=== PATIENT | male | born 1945 | race Caucasian/White ===

== ENCOUNTER 2016-12-02 13:42 | Observation (INO) | payer BC, MEDICARE ==
--- NOTE | 2016-12-02 14:17 | ED ---
General Adult HPI - General Chief complaint: Arrhythmia/Palpitations Stated complaint: dizzy/altered Time Seen by Provider: 12/02/16 14:00 Source: patient, family, RN notes reviewed Mode of arrival: wheelchair Limitations: no limitations - History of Present Illness Initial comments: This is a 71-year-old male who presents emergency department with past medical history significant for COPD. Comes in today feeling extremely fatigued. Patient states yesterday he was out shopping with his and getting dunaway in the garden he felt fine and after watering her dunaway outside when he got home he felt dizzy came inside was extremely fatigued according to his . Patient needed to hang onto the counter while he was walking around the house. Patient did eat dinner but was extremely dizzy and tired patient went to bed early slept all night when he got up this morning he was no longer dizzy but extremely tired according to the he just sits down and he falls right to sleep. Patient currently states he has no dizziness he denies any headache denies numbness or weakness patient denies any lightheadedness or dizziness currently. Patient denies any palpitations chest pain or difficulty breathing. Patient denies any abdominal pain patient denies any recent fever chills or cough patient denies any nausea vomiting or diarrhea. Patient denies any recent injury or trauma. - Related Data Home Medications Medication Instructions Recorded Confirmed Insulin Lispro [humaLOG] See Protocol SQ DAILY PRN 11/03/14 12/02/16 Losartan [Cozaar] 50 mg PO BID 11/03/14 12/02/16 Multivitamins, Thera [Multivitamin 1 tab PO DAILY 11/03/14 12/02/16 (formulary)] Simvastatin [Zocor] 40 mg PO HS 11/03/14 12/02/16 Insulin Glargine [Lantus] 30 unit SQ BID 04/07/16 12/02/16 Acetaminophen [Tylenol] 325 mg PO Q4H PRN 12/02/16 12/02/16 Aspirin [Adult Low Dose Aspirin EC] 81 mg PO Q48H 12/02/16 12/02/16 Eucrisa 2% Ointment 1 applic TOPICAL DAILY PRN 12/02/16 12/02/16 Ibuprofen [Motrin] 600 mg PO DAILY PRN 12/02/16 12/02/16 Tamsulosin HCl [Flomax] 0.4 mg PO HS 12/02/16 12/02/16 metFORMIN HCL [Metformin HCl] 1,000 mg PO BID 12/02/16 12/02/16 Allergies Allergy/AdvReac Type Severity Reaction Status Date / Time cephalexin monohydrate Allergy Dyspnea, Verified 12/02/16 15:24 [From Keflex] RASH Review of Systems ROS Statement: Those systems with pertinent positive or pertinent negative responses have been documented in the HPI. ROS Other: All systems not noted in ROS Statement are negative. Past Medical History Past Medical History: Diabetes Mellitus, Hearing Disorder / Deafness, Osteoarthritis (OA) Additional Past Medical History / Comment(s): SEE DR DE LOS SANTOS HISTORY AND PHYSICAL History of Any Multi-Drug Resistant Organisms: None Reported Past Surgical History: Back Surgery, Heart Catheterization, Pacemaker Additional Past Surgical History / Comment(s): CERVICAL FUSION, Past Anesthesia/Blood Transfusion Reactions: No Reported Reaction Type of Cardiac Device: Unknown Device Placement Date:: october 2014 Past Psychological History: No Psychological Hx Reported Smoking Status: Never smoker Past Alcohol Use History: Occasional Additional Past Alcohol Use History / Comment(s): STARTED SMOKING IN 1961 AND QUIT IN 2013 Past Drug Use History: None Reported - Past Family History Brother(s) Family Medical History: Cancer General Exam - General Exam Comments Initial Comments: GENERAL: Patient is well-developed and well-nourished. Patient is nontoxic and well- hydrated and is in no acute distress. Patient seems extremely tired but easily to arouse ENT: Neck is soft and supple. No significant lymphadenopathy is noted. Oropharynx is clear. Moist mucous membranes. Neck has full range of motion without eliciting any pain. EYES: The sclera were anicteric and conjunctiva were pink and moist. Extraocular movements were intact and pupils were equal round and reactive to light. Eyelids were unremarkable. PULMONARY: Unlabored respirations. Good breath sounds bilaterally. No audible rales rhonchi or wheezing was noted. CARDIOVASCULAR: There is a regular rate and rhythm without any murmurs gallops or rubs. ABDOMEN: Soft and nontender with normal bowel sounds. No palpable organomegaly was noted. There is no palpable pulsatile mass. SKIN: Skin is clear with no lesions or rashes and otherwise unremarkable. NEUROLOGIC: Patient is alert and oriented x3. Cranial nerves II through XII are grossly intact. Motor and sensory are also intact. Normal speech, volume and content. Symmetrical smile. Cerebellar exam grossly intact. Finger to nose cerebellar testing is normal MUSCULOSKELETAL: Normal extremities with adequate strength and full range of motion. No lower extremity swelling or edema. No calf tenderness. LYMPHATICS: No significant lymphadenopathy is noted PSYCHIATRIC: Normal psychiatric evaluation. Normal interpersonal interactions appears functionally intact in deals appropriately with others. No signs of depression. No signs of anxiety. Limitations: no limitations Course Vital Signs 12/02/16 12/02/16 12/02/16 13:51 14:15 14:16 Temperature 98.1 F Pulse Rate 60 58 L Pulse Rate [ 61 Water Treatment Specialist ] Respiratory 20 16 Rate Blood Pressure 142/66 156/73 O2 Sat by Pulse 96 95 Oximetry 12/02/16 14:59 Temperature 97.8 F Pulse Rate 61 Pulse Rate [ Water Treatment Specialist ] Respiratory 18 Rate Blood Pressure 157/72 O2 Sat by Pulse 98 Oximetry Medical Decision Making - Medical Decision Making EKG shows atrial paced rhythm at 63 bpm DE interval 300 QRS is 152 QT interval 422 QTC is 431 patient is a right bundle branch block patient has no ST segment elevation or depression. Chest x-ray shows no acute abnormality. CT of the brain shows no acute abnormality. Patient still was significantly fatigued so I admitted the patient I did talk to . he has a he agreed with admission I wrote admitting orders - Lab Data Result diagrams: 12/02/16 14:00 12/02/16 14:00 Lab Results 12/02/16 12/02/16 12/02/16 Range/Units 14:00 14:00 14:00 WBC 5.7 (3.8-10.6) k/uL RBC 4.60 (4.30-5.90) m/uL Hgb 13.8 (13.0-17.5) gm/dL Hct 42.9 (39.0-53.0) % MCV 93.3 (80.0-100.0) fL MCH 30.1 (25.0-35.0) pg MCHC 32.3 (31.0-37.0) g/dL RDW 13.4 (11.5-15.5) % Plt Count 198 (150-450) k/uL Neutrophils % 65 % Lymphocytes % 22 % Monocytes % 6 % Eosinophils % 3 % Basophils % 1 % Neutrophils # 3.7 (1.3-7.7) k/uL Lymphocytes # 1.3 (1.0-4.8) k/uL Monocytes # 0.3 (0-1.0) k/uL Eosinophils # 0.2 (0-0.7) k/uL Basophils # 0.1 (0-0.2) k/uL PT (9.0-12.0) sec INR (<1.1) APTT (22.0-30.0) sec Sodium 143 (137-145) mmol/L Potassium 4.5 (3.5-5.1) mmol/L Chloride 103 (98-107) mmol/L Carbon Dioxide 31 H (22-30) mmol/L Anion Gap 9 mmol/L BUN 23 H (9-20) mg/dL Creatinine 0.76 (0.66-1.25) mg/dL Est GFR (MDRD) Af Amer >60 (>60 ml/min/1.73 sqM) Est GFR (MDRD) Non-Af >60 (>60 ml/min/1.73 sqM) Glucose 117 H (74-99) mg/dL Calcium 10.0 (8.4-10.2) mg/dL Magnesium 1.9 (1.6-2.3) mg/dL Total Bilirubin 0.5 (0.2-1.3) mg/dL AST 37 (17-59) U/L ALT 42 (21-72) U/L Alkaline Phosphatase 70 (38-126) U/L Total Creatine Kinase 189 H (55-170) U/L CK-MB (CK-2) 5.9 H* (0.0-2.4) ng/mL CK-MB (CK-2) Rel Index 3.1 Troponin I <0.012 (0.000-0.034) ng/mL Total Protein 7.2 (6.3-8.2) g/dL Albumin 4.3 (3.5-5.0) g/dL TSH 1.940 (0.465-4.680) mIU/L Free T4 1.04 (0.78-2.19) ng/dL Urine Color Urine Appearance (Clear) Urine pH (5.0-8.0) Ur Specific Marion (1.001-1.035) Urine Protein (Negative) Urine Glucose (UA) (Negative) Urine Ketones (Negative) Urine Blood (Negative) Urine Nitrite (Negative) Urine Bilirubin (Negative) Urine Urobilinogen (<2.0) mg/dL Ur Leukocyte Esterase (Negative) Urine RBC (0-5) /hpf Urine WBC (0-5) /hpf Urine WBC Clumps (None) /hpf Urine Bacteria (None) /hpf Urine Mucus (None) /hpf 12/02/16 12/02/16 Range/Units 14:00 14:35 WBC (3.8-10.6) k/uL RBC (4.30-5.90) m/uL Hgb (13.0-17.5) gm/dL Hct (39.0-53.0) % MCV (80.0-100.0) fL MCH (25.0-35.0) pg MCHC (31.0-37.0) g/dL RDW (11.5-15.5) % Plt Count (150-450) k/uL Neutrophils % % Lymphocytes % % Monocytes % % Eosinophils % % Basophils % % Neutrophils # (1.3-7.7) k/uL Lymphocytes # (1.0-4.8) k/uL Monocytes # (0-1.0) k/uL Eosinophils # (0-0.7) k/uL Basophils # (0-0.2) k/uL PT 10.9 (9.0-12.0) sec INR 1.1 (<1.1) APTT 24.5 (22.0-30.0) sec Sodium (137-145) mmol/L Potassium (3.5-5.1) mmol/L Chloride (98-107) mmol/L Carbon Dioxide (22-30) mmol/L Anion Gap mmol/L BUN (9-20) mg/dL Creatinine (0.66-1.25) mg/dL Est GFR (MDRD) Af Amer (>60 ml/min/1.73 sqM) Est GFR (MDRD) Non-Af (>60 ml/min/1.73 sqM) Glucose (74-99) mg/dL Calcium (8.4-10.2) mg/dL Magnesium (1.6-2.3) mg/dL Total Bilirubin (0.2-1.3) mg/dL AST (17-59) U/L ALT (21-72) U/L Alkaline Phosphatase (38-126) U/L Total Creatine Kinase (55-170) U/L CK-MB (CK-2) (0.0-2.4) ng/mL CK-MB (CK-2) Rel Index Troponin I (0.000-0.034) ng/mL Total Protein (6.3-8.2) g/dL Albumin (3.5-5.0) g/dL TSH (0.465-4.680) mIU/L Free T4 (0.78-2.19) ng/dL Urine Color Light Yellow Urine Appearance Clear (Clear) Urine pH 6.5 (5.0-8.0) Ur Specific Marion 1.011 (1.001-1.035) Urine Protein Trace H (Negative) Urine Glucose (UA) Negative (Negative) Urine Ketones Negative (Negative) Urine Blood Negative (Negative) Urine Nitrite Negative (Negative) Urine Bilirubin Negative (Negative) Urine Urobilinogen <2.0 (<2.0) mg/dL Ur Leukocyte Esterase Moderate H (Negative) Urine RBC 1 (0-5) /hpf Urine WBC 26 H (0-5) /hpf Urine WBC Clumps Rare H (None) /hpf Urine Bacteria Rare H (None) /hpf Urine Mucus Rare H (None) /hpf Disposition Clinical Impression: Generalized weakness, Urinary tract infection Disposition: ADMITTED IP TO THIS HOSP Referrals: Taqueria Doherty MD [Primary Care Provider] - 1-2 days Time of Disposition: 16:16
[2016-12-02 14:30] LABS: Basophils # (A) 0.1 k/uL (0-0.2); Basophils % (A) 1 %; CHCM 32.2; Eosinophils # (A) 0.2 k/uL (0-0.7); Eosinophils % (A) 3 %; HCT 42.9 % (39.0-53.0); HDW 2.36; HGB 13.8 gm/dL (13.0-17.5); Luc # (Auto) 0.18; Luc % (Auto) 3; Lymphocytes # (A) 1.3 k/uL (1.0-4.8); Lymphocytes % (A) 22 %; MCH 30.1 pg (25.0-35.0); MCHC 32.3 g/dL (31.0-37.0); MCV 93.3 fL (80.0-100.0); Mean Platelet Volume 6.7; Monocytes # (A) 0.3 k/uL (0-1.0); Monocytes % (A) 6 %; Neutrophils # (A) 3.7 k/uL (1.3-7.7); Neutrophils % (A) 65 %; RDW 13.4 % (11.5-15.5); WBC 5.7 k/uL (3.8-10.6); WBC (Perox) 5.66
[2016-12-02 14:38] LABS: INR 1.1 (<1.1); Partial Thromboplastin Time 24.5 sec (22.0-30.0); Prothrombin Time 10.9 sec (9.0-12.0)
[2016-12-02 14:39] LABS: ALT 42 U/L (21-72); AST 37 U/L (17-59); Alkaline Phosphatase 70 U/L (38-126); Anion Gap 9 mmol/L; Blood Urea Nitrogen 23 mg/dL (9-20); Carbon Dioxide 31 mmol/L (22-30); Chloride 103 mmol/L (98-107); Glucose 117 mg/dL (74-99); Magnesium 1.9 mg/dL (1.6-2.3); Non-African American GFR(MDRD) >60 (>60 ml/min/1.73 sqM); Potassium 4.5 mmol/L (3.5-5.1); Sodium 143 mmol/L (137-145); Total Bilirubin 0.5 mg/dL (0.2-1.3); Total Protein 7.2 g/dL (6.3-8.2)
[2016-12-02 14:51] LABS: Creatine Kinase 189 U/L (55-170)
--- NOTE | 2016-12-02 14:54 | CT ---
EXAMINATION TYPE: CT brain wo con DATE OF EXAM: 12/02/2016 2:34 PM COMPARISON: NONE HISTORY: Patient poor historian. Pain. CT DLP: 1047.1 mGycm Automated exposure control for dose reduction was used. FINDINGS: Ventricles have normal size. There is no mass effect nor midline shift. There is no sign of intracran ial hemorrhage. There is cerebral cortical atrophy. The calvarium is intact. There is some mucosal th ickening in the anterior ethmoid air cells. IMPRESSION: Negative unenhanced head CT scan. Mild atrophy. Mild ethmoid sinusitis.
--- NOTE | 2016-12-02 14:56 | XR ---
EXAMINATION TYPE: XR chest 2V DATE OF EXAM: 12/02/2016 2:37 PM COMPARISON: 04/07/2016 HISTORY: Chest pain TECHNIQUE: Frontal and lateral views of the chest are obtained. FINDINGS: Heart and mediastinum appear normal. There are no hilar masses. There is mild linear densi ty at the left lung base. There is a left axillary pacemaker with the lead tips in the right ventricl e. There are chest leads. Right lung is clear. IMPRESSION: There is new minimal atelectasis at the left lung base compared to last exam. Normal hea rt. No heart failure.
[2016-12-02 15:03] LABS: Troponin I <0.012 ng/mL (0.000-0.034)
[2016-12-02 15:05] LABS: Creatine Kinase MB 5.9 ng/mL (0.0-2.4)
[2016-12-02 15:12] LABS: Appearance,Urine Clear (Clear); Bacteria,Urine Rare /hpf; Bilirubin,Urine Negative (Negative); Glucose,Urine (UA) Negative (Negative); Ketones,Urine Negative (Negative); Leukocyte Esterase,Urine Moderate (Negative); Mucus,Urine Rare /hpf; Nitrite,Urine Negative (Negative); PH, Urine 6.5 (5.0-8.0); Particle Count 6019; Protein,Urine Trace (Negative); RBC,Urine 1 /hpf (0-5); Specific Gravity,Urine 1.011 (1.001-1.035); UA Billing (MACRO vs. MICRO) MICRO; Urobilinogen,Urine <2.0 mg/dL (<2.0); WBC,Urine 26 /hpf (0-5)
[2016-12-02] MEDS ORDERED: LEVOFLOXACIN 750MG-D5W PMX 750 MG in DEXTROSE/WATER 1 150ML.BAG IVPB STA (15:35)
[2016-12-02] MEDS ORDERED: SODIUM CHLORIDE 0.9% 1,000 ML IV ONE (16:16)
[2016-12-02 17:16] VITALS: BMI 29.0
[2016-12-02 17:26] LABS: Glucose,Whole Blood 114 mg/dL (75-99)
[2016-12-02] MEDS ORDERED: ACETAMINOPHEN 650 MG PO PRN (17:35)
[2016-12-02] MEDS ORDERED: EUCRISA 2% TOPICAL PRN (17:35)
[2016-12-02] MEDS ORDERED: IBUPROFEN 600 MG PO PRN (17:35)
[2016-12-02] MEDS: SODIUM CHLORIDE 0.9% 1,000 ML IV SCH (19:46)
[2016-12-02] MEDS ORDERED: INSULIN LISPRO SQ PRN (20:24)
[2016-12-02] MEDS: METFORMIN HCL 1000 MG PO SCH (20:45)
[2016-12-02] MEDS: LOSARTAN 50 MG PO SCH (20:45)
[2016-12-02 20:52] LABS: Glucose,Whole Blood 152 mg/dL (75-99)
[2016-12-02] MEDS ORDERED: SIMVASTATIN 80 MG PO SCH (21:00)
[2016-12-02] MEDS ORDERED: INSULIN GLARGINE 30 UNIT SQ SCH (21:00)
[2016-12-02] MEDS ORDERED: INSULIN GLARGINE 100 UNIT/ML 10 ML VIAL SQ SCH (21:00)
[2016-12-02] MEDS ORDERED: TAMSULOSIN HCL 0.4 MG PO SCH (21:00)
[2016-12-02] MEDS: NOVOLOG INSULIN SQ SCH (23:29)
[2016-12-02] MEDS: INSULIN GLARGINE 100 UNIT/ML SQ SCH (23:37)
[2016-12-03] MEDS: SODIUM CHLORIDE 0.9% 1,000 ML IV SCH ×2 (04:01→13:32)
[2016-12-03 06:34] LABS: Glucose,Whole Blood 114 mg/dL (75-99)
[2016-12-03 07:10] VITALS: BP 119/60; PULSE 83; RESP 16; TEMP 97.8
[2016-12-03] MEDS: NOVOLOG INSULIN SQ SCH ×2 (07:53→12:39)
[2016-12-03] MEDS: LOSARTAN 50 MG PO SCH (08:30)
[2016-12-03] MEDS: METFORMIN HCL 1000 MG PO SCH (08:31)
[2016-12-03] MEDS: INSULIN GLARGINE 100 UNIT/ML SQ SCH (08:34)
[2016-12-03] MEDS ORDERED: ASPIRIN 81 MG PO SCH (09:00)
[2016-12-03] MEDS ORDERED: MULTIVITAMINS THERA PO SCH (09:00)
[2016-12-03 11:57] LABS: Glucose,Whole Blood 211 mg/dL (75-99)
--- NOTE | 2016-12-03 21:15 | HP ---
DATE OF ADMISSION: 12/02/2016 This dictation is both H&P and discharge summary. HISTORY AND PHYSICAL EXAMINATION/DISCHARGE SUMMARY: Patient is a 71-year-old came to the Emergency Room Department with complaints of lightheadedness, fatigue and patient has been in garden and sun. The patient although kidney function is clinically appeared to be dehydrated with elevated BUN. Patient has positive orthostatic vitals along with mildly low normal blood pressure which the patient is on losartan 50 twice a day and his losartan was increased from 50 daily to 50 twice a day, may have contributed to his dizziness as well. Losartan will be changed back to 50 mg. This is being used for ( ) because of his diabetes mellitus. Patient is admitted for UTI and was given antibiotics yesterday and today. Although patient denied any dysuria. The patient denied any increased urinary frequency. Urine is a bit abnormal, but I do not believe patient has UTI. Patient's WBC is 26. Rare RBCs. Rare bacteria. Rare mucus. His lightheadedness. Patient does not have any fevers, does not have any leukocytosis. His symptoms are only lightheadedness, did not have any syncopal episode. Patient denied any nausea or vomiting, diarrhea. Patient denied any cough, runny nose. REVIEW OF SYSTEMS: CONSTITUTIONAL: As described in history of present illness. HEENT: No recent visual problems or hearing problems. Denied any sore throat. CARDIOVASCULAR: No chest pain, orthopnea, PND, no palpitations, no syncope. PULMONARY: No shortness of breath, no cough, no hemoptysis. GASTROINTESTINAL: No diarrhea, no nausea, no vomiting, no abdominal pain. Normoactive bowel sounds. NEUROLOGICAL: No headaches, no weakness, no numbness. HEMATOLOGICAL: Denies any bleeding or petechiae. GENITOURINARY: Denies any burning micturition, frequency, or urgency. MUSCULOSKELETAL/RHEUMATOLOGICAL: Denies any joint pain, swelling, or any muscle pain. ENDOCRINE: Denies any polyuria or polydipsia. The rest of the 14 point review of systems is negative. Medications: 1. Lisinopril. 2. Cozaar. 3. Multivitamins. 4. Simvastatin. 5. Lantus 30 units b.i.d. 6. Acetaminophen. 7. Aspirin. 8. Ibuprofen. 9. Tamsulosin. 10. Metformin. ALLERGIES: CEPHALEXIN. PAST MEDICAL HISTORY: Significant for diabetes mellitus, hypertension, osteoarthritis, hearing problems. Patient had cardiac catheterization with pacemaker placement in the past, cervical fusion surgery. SOCIAL HISTORY: Denied any smoking, alcohol abuse or any drug abuse. FAMILY HISTORY: Brother had cancer. PHYSICAL EXAMINATION: Temperature 97.8, pulse of 83, respiratory rate of 16, blood pressure 108/66, saturating at 93% on room air. GENERAL: The patient is alert and oriented x3, not in any acute distress. Well developed, well nourished. HEENT: Pupils are round and equally reacting to light. EOMI. No scleral icterus. No conjunctival pallor. Normocephalic, atraumatic. No pharyngeal erythema. No thyromegaly. CARDIOVASCULAR: S1 and S2 present. No murmurs, rubs, or gallops. PULMONARY: Chest is clear to auscultation, no wheezing or crackles. ABDOMEN: Soft, nontender, nondistended, normoactive bowel sounds. No palpable organomegaly. MUSCULOSKELETAL: No joint swelling or deformity. EXTREMITIES: No cyanosis, clubbing, or pedal edema. NEUROLOGICAL: Gross neurological examination did not reveal any focal deficits. SKIN: No rashes. LABORATORY DATA: BUN is 23. Bicarbonate 31 consistent with contraction alkalosis. Blood glucose is 118, hemoglobin is 8.0, consistent with uncontrolled diabetes mellitus. ASSESSMENT AND PLAN: 1. Dizziness probably related and mild renal dysfunction that is acute renal failure due to prerenal azotemia. I believe patient is a bit dehydrated. Received IV fluids. Feeling well at this point of time. There is a contribution of losartan may have contributed to his low blood pressures and dizziness, because of which I will cut down dose of losartan. 2. Diabetes mellitus. 3. Asymptomatic bacteriuria, does not warrant any antibiotics. Antibiotics will be discontinued. 4. Regarding diabetes mellitus, patient has uncontrolled blood sugars. Further management as an outpatient. 5. Hyperlipidemia. 6. Osteoarthritis. For above-mentioned chronic medical problems, patient can continue his home medications. Patient also has benign prostatic hypertrophy and hyperlipidemia for which he can continue his home medications. Patient will follow up with his primary care physician, Dr. Taqueria Biswas in 3 to 7 days. Activity as tolerated. Cardiac and ADA 1800 calorie diet. This dictation is both H&P and discharge summary.
== END 2016-12-03 13:20 | disposition home or self-care (01) ==
LOC: EC 13:42 → 3OBS 16:17
PROVIDERS: ADMIT Internal Medicine; ATTEND Internal Medicine
DX: R42 Dizziness and giddiness (principal); E11.65 Type 2 diabetes mellitus with hyperglycemia; R82.71 Bacteriuria; E78.5 Hyperlipidemia, unspecified; M19.90 Unspecified osteoarthritis, unspecified site; N40.0 Benign prostatic hyperplasia without lower urinary tract symptoms; J44.9 Chronic obstructive pulmonary disease, unspecified; H91.90 Unspecified hearing loss, unspecified ear; Z79.899 Other long term (current) drug therapy; Z79.4 Long term (current) use of insulin; Z79.82 Long term (current) use of aspirin; Z79.84 Long term (current) use of oral hypoglycemic drugs; Z88.1 Allergy status to other antibiotic agents; Z95.0 Presence of cardiac pacemaker; Z87.891 Personal history of nicotine dependence; Z98.1 Arthrodesis status; I10 Essential (primary) hypertension; Z80.9 Family history of malignant neoplasm, unspecified; R53.83 Other fatigue; R79.89 Other specified abnormal findings of blood chemistry
CPT/HCPCS: 99285; 96365 ×3; 36415; 93005; 84439; 80053; 83036; 82550; 82553; 83735; 84443; 84484; 85025; 85610; 85730; 81001; 87086; 87077; 87186; 71020; 70450; G0378 ×2; J1956

== ENCOUNTER → 2017-08-17 | Outpatient (CLI) | payer MEDICARE ==
[2017-08-17 08:42] LABS: Basophils # (A) 0.1 k/uL (0-0.2); Basophils % (A) 1 %; Eosinophils # (A) 0.1 k/uL (0-0.7); Eosinophils % (A) 3 %; HCT 42.7 % (39.0-53.0); HGB 13.3 gm/dL (13.0-17.5); Hypochromasia Slight; Lymphocytes # (A) 1.3 k/uL (1.0-4.8); Lymphocytes % (A) 22 %; MCH 29.8 pg (25.0-35.0); MCHC 31.1 g/dL (31.0-37.0); MCV 95.7 fL (80.0-100.0); Mean Platelet Volume 6.7; Monocytes # (A) 0.5 k/uL (0-1.0); Monocytes % (A) 8 %; Neutrophils # (A) 3.5 k/uL (1.3-7.7); Neutrophils % (A) 62 %; Platelet Count 226 k/uL (150-450); RBC 4.46 m/uL (4.30-5.90); RDW 13.4 % (11.5-15.5); WBC 5.7 k/uL (3.8-10.6)
[2017-08-17 08:57] LABS: Potassium 5.9 mmol/L (3.5-5.1)
== END | disposition home or self-care (01) ==
LOC: LABPAT 08:18
PROVIDERS: ATTEND Orthopaedic Surgery
DX: Z01.818 Encounter for other preprocedural examination (principal); M75.41 Impingement syndrome of right shoulder
CPT/HCPCS: 36415; 80051; 85025

== ENCOUNTER 2017-09-04 07:54 | Day surgery (SDC) | payer MEDICARE ==
[2017-09-02 09:01] VITALS: BMI 29.1
--- NOTE | 2017-09-03 12:36 | HP ---
HISTORY AND PHYSICAL DATE OF SERVICE: 09/04/2017 Luke Singh is a 72-year-old patient seen with progressive right shoulder pain. We discussed treatment options. He elected to proceed with right shoulder arthroscopy. Consent was obtained, clearance was provided by Dr. Dale. PAST MEDICAL HISTORY: Insulin-dependent diabetes, hyperlipidemia, hypertension. PAST SURGICAL HISTORY: Lumbar laminectomy. DAILY MEDICATIONS: 1. NovoLog insulin. 2. Simvastatin. 3. Tramadol. 4. Losartan. ALLERGIES: KEFLEX. SOCIAL HISTORY: Patient denies current tobacco use. PHYSICAL EVALUATION RIGHT SHOULDER: Flexion 90 degrees, abduction 70 degrees, external rotation is 30 degrees with pain and weakness. There is tenderness along the anterolateral acromion and rotator cuff insertion site. Impingement positive 60 degrees. Drop-arm sign positive. Distal neurovascular exam intact. RIGHT SHOULDER RADIOGRAPHS: Revealed a type 2 anterior acromion, acromioclavicular joint osteoarthritis and cystic changes of the greater tuberosity. IMPRESSION: Right shoulder impingement with probable rotator cuff tear and acromioclavicular joint osteoarthritis. PLAN: Right shoulder arthroscopy, subacromial decompression, probable arthroscopic rotator cuff repair, probable Jayna procedure and debridement. MMODL / IJN: [id number] /
[~2017-09-04 07:54] MED LIST: DEXAMETHASONE SOD PHOSPHATE 10 MG/ML 1 ML VIAL IV ONE; HYDROmorphone 0.5 MG/0.5 ML SYRINGE IVP PRN; LACTATED RINGERS 1,000 ML IV SCH; MIDAZOLAM 2 MG/2 ML VIAL IV PRN; ONDANSETRON 4 MG/2 ML VIAL IVP ONE; Pre Op ABX Message 1 EACH MISC MISCELLANE ONE
[2017-09-04 08:50] LABS: Glucose,Whole Blood 210 mg/dL (75-99)
[2017-09-04] MEDS ORDERED: LIDOCAINE 1% 20 ML VIAL (10MG/ML) FOR IV START INTRADERMA ONE (08:53)
[2017-09-04] MEDS ORDERED: INSULIN ASPART 100 UNIT/ML 1 ML 10 ML VIAL SQ ONE (09:17)
[2017-09-04] MEDS ORDERED: fentaNYL (PF) 50 MCG/ML 2 ML AMP IV ONE (09:30)
--- NOTE | 2017-09-04 09:42 | P.ONQ ---
Anesthesiology Proc Note - PNB - Peripheral Nerve Block Performed Right Interscalene Single Time Out Performed: Yes Procedure Start Time: 09:30 Indication: Acute Post-Operative Pain, Analgesia Specifically requested for management of pain by DrCristofer: Gunner Pedersen Sedation Type: Sedate with meaningful contact maintained Preparation: Sterile Prep Position: Supine Catheter: None Needle Types: Other (see comment) (pajunk) Needle Size: 50mm (2") Needle Gauge: 21 Technique: Ultrasound Injectate: 0.5% Ropivacaine (see comment for volume) (30cc) Blood Aspirated: No Pain Paresthesia on Injection Noted: No Resistance on Injection: Normal Events: Uneventful and Well Tolerated
[2017-09-04] MEDS ORDERED: PHENYLEPHRINE-0.9% NACL SYG 1 MG/10 ML SYRINGE ONE (10:15)
[2017-09-04] MEDS ORDERED: PROPOFOL 10 MG/ML 20 ML VIAL IV ONE (10:15)
[2017-09-04] MEDS ORDERED: LIDOCAINE 1% INJ 10MG/ML (20 ML MDV) ONE (10:15)
[2017-09-04] MEDS ORDERED: SUCCINYLCHOLINE CHLORIDE 100 MG/5 ML SYR IV ONE (10:15)
[2017-09-04] MEDS ORDERED: ROPIVACAINE 5 MG/ML 30 ML VIAL ONE (10:15)
[2017-09-04] MEDS ORDERED: LIDOCAINE 2%-EPI 1:100,000 20 ML VIAL ONE (10:15)
[2017-09-04] MEDS ORDERED: CLINDAMYCIN 150 MG/ML 4 ML VIAL IVPB ONE (10:37)
--- NOTE | 2017-09-04 11:54 | P.OP ---
Date of Procedure: 09/04/17 Preoperative Diagnosis: Right shoulder impingement Postoperative Diagnosis: 1. Right shoulder rotator cuff tear 2. Right shoulder impingement 3. Right shoulder acromioclavicular joint osteoarthritis 4. Right shoulder partial long head biceps tendon tear 5. Right shoulder superficial superior labral tear Procedure(s) Performed: 1. Right shoulder arthroscopic rotator cuff repair 2. Right shoulder arthroscopic subacromial decompression 3. Right shoulder arthroscopic Jayna procedure 4. Right shoulder arthroscopic biceps tenotomy 5. Right shoulder arthroscopic debridement labral tear Implants: 1-5.5 Valeris peek anchor Anesthesia: GETA, regional (Interscalene block) Surgeon: Gunner Pedersen Customer Advocacy Manager #1: Rafat Medrano Estimated Blood Loss (ml): 10 Pathology: none sent Condition: stable Disposition: PACU Indications for Procedure: 72-year-old patient seen with progressive right shoulder pain. After treatment options were discussed, he elected to proceed with arthroscopy. Operative Findings: See description of procedure Description of Procedure: Patient underwent a shoulder block by department of anesthesia. The patient was then taken to the operative suite. The patient underwent a general anesthetic by the department of anesthesia. The patient was placed into a lateral position and secured. There was appropriate padding of the bony prominence. Right shoulder was then prepped and draped in normal sterile orthopedic fashion. We placed the extremity in 10 pounds of longitudinal traction. A posterior incision was now made for a posterior working portal site. The trocar and cannula were inserted into the glenohumeral joint. Arthroscopy was initiated. Spinal needle was now inserted anteriorly, to ascertain the anterior working portal site. An incision was now made in that area, a trocar was inserted followed by a probe. There was some superficial tearing noted of the superior labrum. Partial tearing hyperemia biceps tendon. The anterior posterior and inferior labrum were intact. There were grade 1 chondromalacia changes of the glenohumeral joint with no osteochondral tears present. I debrided the superficial labral tear down to stable tissue. Arthroscopic biceps tenotomy was performed. The residual labrum appeared stable. Instruments were now removed from the glenohumeral joint. Utilizing the posterior working portal site, the trocar and cannula were inserted into the subacromial space. Arthroscopy initiated. I made an incision 2 fingerbreadths lateral to the acromion. I introduced my trocar followed by my [employer]throCare ablator. I now began ablating thick subacromial bursal tissue, which exposed the undersurface of the anterior acromion. This was diminished subacromial space. There was a very prominent anterior acromion. A motorized bur was introduced and a subacromial decompression was performed. I also excised some osteophytes off the inferior aspect of the distal clavicle. The AC joint was visualized and noted to be fairly arthritic. Our motorized bur was introduced in the anterior portal site and a Jayna procedure was performed without difficulty, decompressing the AC joint nicely. I turned my attention to the rotator cuff. There was superficial tearing noted along the distal supraspinatus tendon. Once I debrided that down to stable tissue a probe was introduced and the was a through and through perforation noted. I debrided those margins getting down to stable tissue. There was about a 1 cm defect. I abraded the foot with a motorized bur. I passed 2 everted mattress sutures through good bites of rotator cuff tendon. I repaired the tendon with one single 5.5 anchor. The residual suture limbs were clipped. The repair was stable. I injected 1 mL of UCT intra-articular. Instruments now removed from the portal sites. All portal sites were approximated with nylon suture. Sterile dressings were applied followed by a shoulder immobilizer. Westley CARRILLO assisted with the procedure. The patient was awakened, transferred to a bed, and taken to recovery in stable condition.
[2017-09-04 12:04] VITALS: TEMP 96.8
[2017-09-04 12:15] LABS: Glucose,Whole Blood 188 mg/dL (75-99)
[2017-09-04 12:56] VITALS: RESP 16
[2017-09-04 13:58] VITALS: BP 144/70; PULSE 78
[2017-09-04 14:01] LABS: Glucose,Whole Blood 190 mg/dL (75-99)
== END 2017-09-04 14:28 | disposition home or self-care (01) ==
LOC: OR 07:54
PROVIDERS: ATTEND Orthopaedic Surgery
DX: M75.101 Unspecified rotator cuff tear or rupture of right shoulder, not specified as traumatic (principal); M75.41 Impingement syndrome of right shoulder; M19.011 Primary osteoarthritis, right shoulder; S46.111A Strain of muscle, fascia and tendon of long head of biceps, right arm, initial encounter; S43.491A Other sprain of right shoulder joint, initial encounter; X58.XXXA Exposure to other specified factors, initial encounter; M94.211 Chondromalacia, right shoulder; M25.711 Osteophyte, right shoulder; E11.9 Type 2 diabetes mellitus without complications; E78.2 Mixed hyperlipidemia; I11.0 Hypertensive heart disease with heart failure; I50.9 Heart failure, unspecified; I25.10 Atherosclerotic heart disease of native coronary artery without angina pectoris; H91.90 Unspecified hearing loss, unspecified ear; Z95.0 Presence of cardiac pacemaker; Z79.84 Long term (current) use of oral hypoglycemic drugs; Z79.4 Long term (current) use of insulin; Z79.899 Other long term (current) drug therapy; Z79.891 Long term (current) use of opiate analgesic; Z88.1 Allergy status to other antibiotic agents; Z87.891 Personal history of nicotine dependence
CPT/HCPCS: 64415; 29824; 29827; 29826; C1713; C1765; J2250; J1100; J2405; J2001; J3010; J2795; J2370; J0330; J2704

== ENCOUNTER → 2018-08-12 | Outpatient (CLI) | payer MEDICARE ==
--- NOTE | 2018-08-12 17:04 | ECHOF ---
Referral Reason:I35.0 Nonrheumatic aortic stenosis MEASUREMENTS -------- HEIGHT: 182.9 cm WEIGHT: 95.3 kg BP: RVIDd: 2.7 cm (< 3.3) IVSd: 1.5 cm (0.6 - 1.1) LVIDd: 4.2 cm (3.9 - 5.3) LVPWd: 1.5 cm (0.6 - 1.1) IVSs: 1.9 cm LVIDs: 2.9 cm LVPWs: 1.8 cm LAESV Index (A-L): 23.92 ml/m Ao Diam: 3.9 cm (2.0 - 3.7) AV Cusp: 1.1 cm (1.5 - 2.6) LA Diam: 2.8 cm (2.7 - 3.8) MV EXCURSION: 21.518 mm (> 18.000) MV EF SLOPE: 219 mm/s (70 - 150) EPSS: 0.7 cm AV maxP.46 mmHg AV meanP.06 mmHg RAP: 5.00 mmHg RVSP: 19.84 mmHg FINDINGS -------- Paced rhythm. This was a technically adequate study. The left ventricular size is normal. There is moderate concentric left ventricular hypertrophy. O verall left ventricular systolic function is normal with, an EF between 55 - 60 %. The right ventricle is normal in size and function. Normal LA size by volume 22+/-6 ml/m2. The right atrium is normal in size. Aortic valve is trileaflet and is moderately thickened. Trace amount of aortic regurgitation. Th ere is moderate aortic stenosis present. Peak/mean gradient across the Aortic Valve is 40.46mmHg / 24.06mmHg. The mitral valve leaflets are mildly thickened. Moderate mitral annular calcification present. De nsely calcified chordae. Trace tricuspid regurgitation present. Right ventricular systolic pressure is normal at < 35 mmHg. There is no evidence of pulmonary hypertension. The pulmonic valve was not well visualized. The aortic root size is normal. Normal inferior vena cava with normal inspiratory collapse consistent with estimated right atrial pre ssure of 5 mmHg. There is no pericardial effusion. CONCLUSIONS -------- 1. Paced rhythm. 2. This was a technically adequate study. 3. The left ventricular size is normal. 4. There is moderate concentric left ventricular hypertrophy. 5. Overall left ventricular systolic function is normal with, an EF between 55 - 60 %. 6. Normal LA size by volume 22+/-6 ml/m2. 7. Aortic valve is trileaflet and is moderately thickened. 8. Trace amount of aortic regurgitation. 9. There is moderate aortic stenosis present. 10. Peak/mean gradient across the Aortic Valve is 40.46mmHg / 24.06mmHg. 11. The mitral valve leaflets are mildly thickened. 12. Moderate mitral annular calcification present. 13. Densely calcified chordae. 14. Trace tricuspid regurgitation present. 15. Right ventricular systolic pressure is normal at < 35 mmHg. 16. There is no evidence of pulmonary hypertension. 17. The pulmonic valve was not well visualized. 18. The aortic root size is normal. 19. There is no pericardial effusion. DIRECTOR OF MARKETING OPERATIONS: Vadim Hightower RDCS
== END ==
LOC: RADECHMAIN 15:51
PROVIDERS: ATTEND Internal Medicine
DX: I51.7 Cardiomegaly (principal); I35.8 Other nonrheumatic aortic valve disorders; I35.0 Nonrheumatic aortic (valve) stenosis
CPT/HCPCS: 93306

== ENCOUNTER 2019-02-16 09:25 | Observation (INO) | payer MEDICARE ==
[2019-02-16] MEDS ORDERED: SODIUM CHLORIDE 0.9% 1,000 ML IV STA (09:54)
[2019-02-16] MEDS ORDERED: NITROGLYCERIN OINT 1 INCH/GM PACKET TOPICAL STA (09:54)
[2019-02-16] MEDS ORDERED: ASPIRIN 81 MG PO STA (09:54)
--- NOTE | 2019-02-16 09:58 | ED ---
Chest Pain HPI - General Chief Complaint: Chest Pain Stated Complaint: chest pain Time Seen by Provider: 02/16/19 09:38 Source: patient, RN notes reviewed Mode of arrival: wheelchair Limitations: no limitations - History of Present Illness Initial Comments: This 73-year-old male with a history of aortic stenosis who states he had the onset yesterday of retrosternal chest pressure that was 5/10 severity he feels extremely tired this all began after he was working out in his garden yesterday morning. He states the discomfort is better as 2/10 right now he is just extremely tired he had exertional dyspnea yesterday he's had some progressively increasing edema to the lower extremities or last 2 weeks. He does have chronic diarrhea every third day he has diarrhea is being worked up at this time. He denies any fevers chills or sweats no nausea vomiting at this time. No other modifying factors. He also does state he has a ventral hernia which is not believe is associated with this event today MD Complaint: chest pain - Related Data Home Medications Medication Instructions Recorded Confirmed Multivitamins, Thera [Multivitamin 1 tab PO DAILY 11/03/14 02/16/19 (formulary)] Simvastatin [Zocor] 40 mg PO HS 11/03/14 02/16/19 Insulin Glargine [Lantus] 10 unit SQ DAILY 04/07/16 02/16/19 Acetaminophen [Tylenol] 325 mg PO Q4H PRN 12/02/16 02/16/19 metFORMIN HCL [Metformin HCl] 1,000 mg PO BID 12/02/16 02/16/19 Ubidecarenone [Co Q-10] 100 mg PO DAILY 09/02/17 02/16/19 Insulin Aspart [NovoLOG Flexpen] See Protocol SQ AC-TID 02/16/19 02/16/19 Axikrh-Rucncnrs-Hkxevje [Zenpep 10] 1 cap PO AC-TID 02/16/19 02/16/19 Losartan Potassium [Cozaar] 100 mg PO DAILY 02/16/19 02/16/19 amLODIPine [Norvasc] 10 mg PO DAILY 02/16/19 02/16/19 Allergies Allergy/AdvReac Type Severity Reaction Status Date / Time cephalexin monohydrate Allergy Dyspnea, Verified 02/16/19 10:05 [From Keflex] RASH Review of Systems ROS Statement: Those systems with pertinent positive or pertinent negative responses have been documented in the HPI. ROS Other: All systems not noted in ROS Statement are negative. EKG Findings - EKG Results: EKG: interpreted by CRISTIANO (Pacemaker rhythm a 61. 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 skin disorder Lichens planus History of Any Multi-Drug Resistant Organisms: None Reported Past Surgical History: Back Surgery, Heart Catheterization, Pacemaker Additional Past Surgical History / Comment(s): CERVICAL FUSION, r shoulder rotator cuff repair Past Anesthesia/Blood Transfusion Reactions: No Reported Reaction Type of Cardiac Device: Unknown Device Placement Date:: october 2014 Past Psychological History: No Psychological Hx Reported Smoking Status: Former smoker Past Alcohol Use History: Occasional Past Drug Use History: None Reported - Past Family History Brother(s) Family Medical History: Cancer General Exam - General Exam Comments Initial Comments: This is a well-developed well-nourished awake alert oriented 3 male Limitations: no limitations General appearance: alert, lethargic Head exam: Present: atraumatic, normocephalic, normal inspection Eye exam: Present: normal appearance, PERRL, EOMI. Absent: scleral icterus, conjunctival injection, periorbital swelling ENT exam: Present: mucous membranes dry Neck exam: Present: normal inspection. Absent: tenderness, meningismus, lymphadenopathy Respiratory exam: Present: normal lung sounds bilaterally. Absent: respiratory distress, wheezes, rales, rhonchi, stridor Cardiovascular Exam: Present: regular rate, normal rhythm, normal heart sounds, systolic murmur. Absent: diastolic murmur, rubs, gallop, clicks GI/Abdominal exam: Present: soft, normal bowel sounds. Absent: distended, tenderness, guarding, rebound, rigid Extremities exam: Present: normal inspection, full ROM, normal capillary refill, pedal edema. Absent: tenderness, joint swelling, calf tenderness Back exam: Present: normal inspection Neurological exam: Present: alert, oriented X3, CN II-XII intact Psychiatric exam: Present: normal affect, normal mood Skin exam: Present: warm, dry, intact, normal color. Absent: rash Course Vital Signs 02/16/19 02/16/19 02/16/19 09:30 09:56 10:00 Temperature 98.1 F Pulse Rate 62 61 60 Respiratory 18 14 19 Rate Blood Pressure 124/68 132/64 O2 Sat by Pulse 95 93 L Oximetry 02/16/19 02/16/19 02/16/19 10:30 11:21 12:00 Temperature Pulse Rate 65 73 60 Respiratory 15 16 10 L Rate Blood Pressure 129/62 131/71 131/72 O2 Sat by Pulse 93 L 93 L 90 L Oximetry 02/16/19 02/16/19 02/16/19 12:30 13:00 13:30 Temperature Pulse Rate 60 60 59 L Respiratory 17 16 17 Rate Blood Pressure 129/68 124/72 118/77 O2 Sat by Pulse 93 L 93 L 94 L Oximetry - Reevaluation(s) Reevaluation #1: 02/16/19 14:10 Reevaluation patient reveals no further chest discomfort at this time. Chest Pain MDM - MDM I did review the imaging and report no acute findings I did discuss the findings with Dr. Ren the patient will be admitted with cardiology consultation. The presentation is consistent with unstable angina Critical Care Time Critical Care Time: Yes Critical Care Time: 31 minutes of critical care time which includes initial presentation with history physical labs x-rays multiple reevaluation of the patient discussed with the patient family regarding findings admission orders and documentation of the above Disposition Clinical Impression: Unstable angina pectoris, Chest pain Disposition: ADMITTED IP TO THIS [facility] Condition: Fair Referrals: Davi Mc MD [Primary Care Provider] - 1-2 days
[2019-02-16 10:12] LABS: Basophils # (A) 0.1 k/uL (0-0.2); Basophils % (A) 1 %; Eosinophils # (A) 0.2 k/uL (0-0.7); Eosinophils % (A) 3 %; HCT 37.3 % (39.0-53.0); HGB 12.2 gm/dL (13.0-17.5); Lymphocytes # (A) 1.1 k/uL (1.0-4.8); Lymphocytes % (A) 19 %; MCH 29.8 pg (25.0-35.0); MCHC 32.6 g/dL (31.0-37.0); MCV 91.4 fL (80.0-100.0); Mean Platelet Volume 6.6; Monocytes # (A) 0.4 k/uL (0-1.0); Monocytes % (A) 7 %; Neutrophils # (A) 3.8 k/uL (1.3-7.7); Neutrophils % (A) 68 %; Platelet Count 218 k/uL (150-450); RBC 4.09 m/uL (4.30-5.90); RDW 14.7 % (11.5-15.5); WBC 5.6 k/uL (3.8-10.6)
[2019-02-16 10:17] LABS: ALT 30 U/L (21-72); AST 29 U/L (17-59); African American GFR (CKD) >90 (>60 ml/min/1.73 sqM); Albumin 3.9 g/dL (3.5-5.0); Alkaline Phosphatase 56 U/L (38-126); Anion Gap 8 mmol/L; Blood Urea Nitrogen 24 mg/dL (9-20); Calcium 9.1 mg/dL (8.4-10.2); Carbon Dioxide 27 mmol/L (22-30); Chloride 105 mmol/L (98-107); Creatine Kinase 160 U/L (55-170); Glucose 219 mg/dL (74-99); Magnesium 1.8 mg/dL (1.6-2.3); Non-African American GFR(CKD) 84 (>60 ml/min/1.73 sqM); Potassium 4.5 mmol/L (3.5-5.1); Sodium 140 mmol/L (137-145); Total Bilirubin 0.4 mg/dL (0.2-1.3); Total Protein 6.5 g/dL (6.3-8.2)
[2019-02-16 10:26] LABS: D-Dimer 0.38 mg/L FEU (<0.60); INR 1.1 (<1.2); Partial Thromboplastin Time 25.9 sec (22.0-30.0); Prothrombin Time 11.2 sec (9.0-12.0)
--- NOTE | 2019-02-16 10:32 | XR ---
EXAMINATION TYPE: XR chest 2V DATE OF EXAM: 02/16/2019 COMPARISON: 12/02/2016 HISTORY: 73-year-old male with chest pain TECHNIQUE: AP and lateral views FINDINGS: Left anterior chest wall pacemaker generator with right atrial and right ventricular leads. Heart nor mal size. Mild atherosclerotic arch calcifications. There is some peribronchial cuffing noted. No con solidation or pleural effusion. IMPRESSION: Some peribronchial cuffing suggests bronchitis or asthma. No focal infiltrate seen.
[2019-02-16] MEDS ORDERED: NITROGLYCERIN SL TABS 0.4 MG TAB SUBLINGUAL PRN (14:12)
[2019-02-16] MEDS ORDERED: HEPARIN SODIUM,PORCINE 5,000 UNIT/ML 1 ML VIAL IV ONE (14:12)
[2019-02-16] MEDS ORDERED: ACETAMINOPHEN TAB 325 MG TAB PO PRN (14:14)
[2019-02-16] MEDS ORDERED: HEPARIN SOD,PORK IN 0.45% NACL 25,000 UNIT in 0.45% NACL 1 250ML.BAG IV SCH (14:15)
--- NOTE | 2019-02-16 15:50 | P.HPIM ---
History of Present Illness H&P Date: 02/16/19 Chief Complaint: Chest pain This is a 73-year-old male patient of Dr. Mc and Dr. 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 Patient did have a stress test in 2014 prior to shoulder surgery which was negative at that time. He has had a previous heart catheterization in July 2011 patient reports was normal. The patient had an episode of chest pain in August while he was helping his daughter move and it was different than anything he had experienced in the past. He did not have any workup at that time. Yesterday, patient was working in the flower bed in the morning and it had to take frequent breaks due to fatigue. By the evening, he was sitting in the chair was having some chest pressure and fatigue. Patient apparently has had fatigue worsening over the past couple months. He also complains of increased edema to the lower extremities for the past week. He thought the discomfort in his chest which was at his lower sternal border was related to ventral hernia. Patient came into [facility] emergency center for evaluation. EKG was a paced rhythm. He was afebrile, blood pressure 124/68, heart rate in the 60s. Pulse ox 95% on room air. Hemoglobin 12.2. Creatinine 0.89, blood sugar 219. Troponin negative on first draw, lipase 66. Liver function tests, electrolytes within normal limits. D-dimer 0.38. Chest x-ray reveals some peribronchial cuffing suggest bronchitis or asthma. No focal infiltrate. Patient was started on full-strength aspirin, heparin drip, Nitropaste and admitted to the observation unit and cardiology consult requested. Troponins ordered. Review of Systems Constitutional: Reports fatigue, Reports malaise, Reports weakness, Denies anorexia, Denies chills, Denies fever Ears, nose, mouth and throat: Denies dysphagia, Denies nasal congestion, Denies nasal discharge, Denies vertigo Cardiovascular: Reports chest pain, Reports dyspnea on exertion, Reports leg edema, Denies edema, Denies lightheadedness, Denies shortness of breath, Denies syncope Respiratory: Reports dyspnea, Denies cough, Denies cough with sputum, Denies excessive sputum, Denies hemoptysis, Denies home oxygen, Denies respiratory infections, Denies sleep apnea, Denies wheezing Gastrointestinal: Denies abdominal pain, Denies loss of appetite, Denies melena, Denies nausea, Denies vomiting Genitourinary: Denies dysuria, Denies urinary retention Musculoskeletal: Reports muscle weakness, Denies frequent falls, Denies gait dysfunction Integumentary: Reports lesions, Denies pruritus, Denies rash Neurological: Denies aphasia, Denies change in mentation, Denies change in speech, Denies numbness, Denies seizures, Denies weakness Psychiatric: Denies anxiety, Denies depression Endocrine: Denies fatigue, Denies weight change Past Medical History Past Medical History: Diabetes Mellitus, Hearing Disorder / Deafness, Hyperlipidemia, Hypertension, Osteoarthritis (OA) Additional Past Medical History / Comment(s): SEE DR DE LOS SANTOS HISTORY AND PHYSICAL. skin disorder Lichens planus History of Any Multi-Drug Resistant Organisms: None Reported Past Surgical History: Back Surgery, Heart Catheterization, Pacemaker Additional Past Surgical History / Comment(s): CERVICAL FUSION, r shoulder rotator cuff repair Past Anesthesia/Blood Transfusion Reactions: No Reported Reaction Type of Cardiac Device: Unknown Device Placement Date:: october 2014 Past Psychological History: No Psychological Hx Reported Smoking Status: Former smoker Past Alcohol Use History: Occasional Additional Past Alcohol Use History / Comment(s): Patient was a smoker one pack per day for 50 years and quit August 2018. He denies any illicit drug use or alcohol use. He lives at home with his . Past Drug Use History: None Reported - Past Family History Brother(s) Family Medical History: Cancer Additional Family Medical History / Comment(s): The patient has 2 brothers: One from lymphoma at age 82 and one at age 62 from pancreatic cancer. Patient does not have any sisters. Father Family Medical History: Diabetes Mellitus, Renal Disease, Vascular Disorder Additional Family Medical History / Comment(s): Father at age 78 from renal failure with history of pneumonia and peripheral vascular disease. Mother Family Medical History: Hypertension, Musculoskeletal Disorder, Neurologic Disorder Additional Family Medical History / Comment(s): Mother at age 92 with history of Parkinson's, CVA, hypertension. History of pacemaker placement. Daughter(s) Additional Family Medical History / Comment(s): The patient has 2 daughters both with diabetes and one has lichen planus. Medications and Allergies Home Medications Medication Instructions Recorded Confirmed Type Multivitamins, Thera [Multivitamin 1 tab PO DAILY 11/03/14 02/16/19 History (formulary)] Simvastatin [Zocor] 40 mg PO HS 11/03/14 02/16/19 History Insulin Glargine [Lantus] 10 unit SQ DAILY 04/07/16 02/16/19 History Acetaminophen [Tylenol] 325 mg PO Q4H PRN 12/02/16 02/16/19 History metFORMIN HCL [Metformin HCl] 1,000 mg PO BID 12/02/16 02/16/19 History Ubidecarenone [Co Q-10] 100 mg PO DAILY 09/02/17 02/16/19 History Insulin Aspart [NovoLOG Flexpen] See Protocol SQ AC-TID 02/16/19 02/16/19 History Nfupwg-Jihnqbxy-Gasdpzi [Zenpep 10] 1 cap PO AC-TID 02/16/19 02/16/19 History Losartan Potassium [Cozaar] 100 mg PO DAILY 02/16/19 02/16/19 History amLODIPine [Norvasc] 10 mg PO DAILY 02/16/19 02/16/19 History Allergies Allergy/AdvReac Type Severity Reaction Status Date / Time cephalexin monohydrate Allergy Dyspnea, Verified 02/16/19 10:05 [From Keflex] RASH Physical Exam Vitals: Vital Signs Temp Pulse Resp BP Pulse Ox 02/16/19 14:30 127/75 02/16/19 14:00 60 20 119/68 92 L 02/16/19 13:30 59 L 17 118/77 94 L 02/16/19 13:00 60 16 124/72 93 L 02/16/19 12:30 60 17 129/68 93 L 02/16/19 12:00 60 10 L 131/72 90 L 02/16/19 11:21 73 16 131/71 93 L 02/16/19 10:30 65 15 129/62 93 L 02/16/19 10:00 60 19 132/64 93 L 02/16/19 09:56 61 14 02/16/19 09:30 98.1 F 62 18 124/68 95 Intake and Output 02/15/19 02/16/19 02/16/19 22:59 06:59 14:59 Other: Weight 95.254 kg - Constitutional General appearance: average body habitus, mild distress - EENT Eyes: PERRLA ENT: hard of hearing, no pharyngeal erythema, no tonsillar swelling - Neck Neck: no lymphadenopathy, normal ROM, no thyromegaly Carotids: bilateral: bruit absent - Respiratory Respiratory: bilateral: diminished - Cardiovascular Rhythm: regular Heart sounds: normal: S1, S2 Abnormal Heart Sounds: systolic murmur (At the right sternal border) - Gastrointestinal General gastrointestinal: no distended, no hepatomegaly, normal bowel sounds, no organomegaly, soft, no splenomegaly, no tenderness, ventral hernia - Integumentary Integumentary: normal (Bilateral lower extremity skin changes consistent with lichen planus.) - Neurologic Neurologic: CNII-XII intact - Musculoskeletal Musculoskeletal: generalized weakness - Psychiatric Psychiatric: A&O x's 3, appropriate affect, intact judgment & insight Results CBC & Chem 7: 02/16/19 09:55 02/16/19 09:55 Labs: Abnormal Lab Results - Last 24 Hours (Table) 02/16/19 02/16/19 Range/Units 09:55 09:55 RBC 4.09 L (4.30-5.90) m/uL Hgb 12.2 L (13.0-17.5) gm/dL Hct 37.3 L (39.0-53.0) % BUN 24 H (9-20) mg/dL Glucose 219 H (74-99) mg/dL Thrombosis Risk Factor Assmnt - DVT/VTE Prophylaxis DVT/VTE Prophylaxis: Pharmacologic Prophylaxis ordered Assessment and Plan Plan: 1. Chest pain. Patient has been started on full strength aspirin, heparin drip and transferred to the observation unit. Consult with cardiology. Repeat troponins. Continue Lipitor. 2. Diabetes mellitus type 2, insulin requiring. Continue Levemir 10 units in the morning and 5 units at bedtime along with NovoLog scale, metformin 1000 mg twice daily. 3. Hypertension. Continue losartan 100 mg daily. 4. Hyperlipidemia. Continue atorvastatin 20 g at bedtime. 5. Lichen planus bilateral lower extremity. Clobetasol cream twice daily. 6. History of tobacco use and dependence. 7. DVT prophylaxis. Heparin drip. 8. GI prophylaxis. Pepcid. Patient placed on observation unit. Discharge plan: Return home Impression and plan of care have been directed as dictated by the signing physician. Jenni Casarez nurse practitioner acting as scribe for signing physician.
[2019-02-16 16:57] LABS: Glucose,Whole Blood 158 mg/dL (75-99)
[2019-02-16] MEDS: metFORMIN 500 MG TAB PO SCH (17:05)
[2019-02-16] MEDS: LIPASE 5,000/PROTEASE 17,000/AMYLASE 24,000 PO SCH (17:12)
[2019-02-16] MEDS: INSULIN ASPART (NovoLOG) 100 UNIT/ML VIAL SQ SCH ×2 (17:14→20:10)
[2019-02-16] MEDS: NITROGLYCERIN OINT 1 INCH/GM PACKET TOPICAL SCH ×2 (18:24→23:19)
[2019-02-16 19:56] LABS: Glucose,Whole Blood 244 mg/dL (75-99)
[2019-02-16] MEDS: amLODIPine 10 MG TAB PO SCH (20:10)
[2019-02-16] MEDS: ATORVASTATIN 20 MG TAB PO SCH (20:10)
[2019-02-16] MEDS: INSULIN DETEMIR (LEVEMIR) 100 UNIT/ML SYR SQ SCH (20:10)
[2019-02-16] MEDS: CLOBETASOL PROP 0.05% CR 15GM TOPICAL SCH (20:10)
[2019-02-17] MEDS: NITROGLYCERIN OINT 1 INCH/GM PACKET TOPICAL SCH ×2 (05:00→12:26)
[2019-02-17 06:52] LABS: Glucose,Whole Blood 102 mg/dL (75-99)
[2019-02-17 07:28] LABS: Cholesterol 108 mg/dL (<200); HDL Cholesterol 51 mg/dL (40-60); LDL Cholesterol,Calculated 43 mg/dL (0-99); Triglycerides 72 mg/dL (<150)
[2019-02-17] MEDS: INSULIN ASPART (NovoLOG) 100 UNIT/ML VIAL SQ SCH ×4 (08:26→20:23)
[2019-02-17] MEDS ORDERED: NON FORMULARY DRUG (Ubidecarenone [Co Q-10] 100 MG) PO SCH (09:00)
[2019-02-17] MEDS ORDERED: ASPIRIN 325 MG TAB PO SCH (09:00)
[2019-02-17] MEDS ORDERED: amLODIPine 10 MG TAB PO SCH (09:00)
[2019-02-17] MEDS ORDERED: INSULIN DETEMIR (LEVEMIR) 100 UNIT/ML SYR SQ SCH (09:00)
--- NOTE | 2019-02-17 10:06 | ECHOF ---
Referral Reason:cp, aortic stenosis, sob MEASUREMENTS -------- HEIGHT: 180.3 cm WEIGHT: 95.3 kg BP: 106/57 IVSd: 0.8 cm (0.6 - 1.1) LVIDd: 5.1 cm (3.9 - 5.3) LVPWd: 1.3 cm (0.6 - 1.1) IVSs: 1.4 cm LVIDs: 2.6 cm LVPWs: 1.9 cm ESV(Teich): 24 ml LAESV Index (A-L): 33.95 ml/m IVSd: 1.5 cm (0.6 - 1.1) LVIDd: 4.5 cm (3.9 - 5.3) LVPWd: 1.6 cm (0.6 - 1.1) IVSs: 2.0 cm LVIDs: 2.6 cm LVPWs: 2.4 cm EDV(Teich): 91 ml ESV(Teich): 24 ml EF(Teich): 73 % %FS: 42 % SV(Teich): 67 ml Ao Diam: 3.6 cm (2.0 - 3.7) AV Cusp: 1.0 cm (1.5 - 2.6) LA Diam: 3.7 cm (2.7 - 3.8) MV EXCURSION: 17.354 mm (> 18.000) MV EF SLOPE: 82 mm/s (70 - 150) EPSS: 0.5 cm MV E Ole: 1.14 m/s MV DecT: 231 ms MV A Ole: 0.88 m/s MV E/A Ratio: 1.29 AV maxP.61 mmHg AV meanP.93 mmHg RAP: 15.00 mmHg RVSP: 43.11 mmHg FINDINGS -------- Paced rhythm. This was a technically good study. The left ventricular size is normal. There is moderate concentric left ventricular hypertrophy. O verall left ventricular systolic function is normal with, an EF between 55 - 60 %. The right ventricle is normal in size. LA is midly dilated 29-33ml/m2. The right atrial size is normal. Interatrial and interventricular septum intact. Aortic valve is trileaflet and is severely thickened. There is [id number]-xh-eazmvz aortic stenosis p resent. Peak/mean gradient across the Aortic Valve is 56.61mmHg / 35.93mmHg. The mitral valve is normal. The mitral valve leaflets are mildly thickened. Mild mitral regurgita tion is present. The tricuspid valve appears structurally normal. Mild tricuspid regurgitation present. The right ventricular systolic pressure, as measured by Doppler, is 43.11mmHg. There is no pulmonic regurgitation present. The aortic root size is normal. The inferior vena cava is mildly dilated. There is no pericardial effusion. CONCLUSIONS -------- 1. Paced rhythm. 2. This was a technically good study. 3. The left ventricular size is normal. 4. There is moderate concentric left ventricular hypertrophy. 5. Overall left ventricular systolic function is normal with, an EF between 55 - 60 %. 6. The right ventricle is normal in size. 7. LA is midly dilated 29-33ml/m2. 8. The right atrial size is normal. 9. Interatrial and interventricular septum intact. 10. Aortic valve is trileaflet and is severely thickened. 11. There is evakugxt-wa-edunje aortic stenosis present. 12. Peak/mean gradient across the Aortic Valve is 56.61mmHg / 35.93mmHg. 13. The mitral valve is normal. 14. The mitral valve leaflets are mildly thickened. 15. Mild mitral regurgitation is present. 16. The tricuspid valve appears structurally normal. 17. Mild tricuspid regurgitation present. 18. The right ventricular systolic pressure, as measured by Doppler, is 43.11mmHg. 19. There is no pulmonic regurgitation present. 20. The aortic root size is normal. 21. The inferior vena cava is mildly dilated. 22. There is no pericardial effusion. OPERATIONS MANAGER/COORDINATOR: Janey Cantu [facility]
--- NOTE | 2019-02-17 11:01 | P.CRDCN ---
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 He follows in the office with Dr. Dale. We have been asked to see him in consultation secondary to chest discomfort. He states Saturday afternoon he was in his yard doing some gardening and yard work and he felt increasingly fatigued. He states that this should've taken 30 minutes to continue hours conceded frequently stop due to exhaustion. After he completed this task he started noticing a heavy sensation in the midsternal region. There is no radiation to the arm, back, neck or jaw. It isn't specific aggravating or alleviating factors when he would experience this heaviness. Initially he had no associated symptoms of shortness of breath however last evening while he got up to the bathroom states he felt short of breath upon returning. He denies associated palpitations, nausea, vomiting, diaphoresis or dizziness. Also over the previous 2-3 days he has noticed increased swelling in his lower extremities. This is abnormal for him as he states he does not typically have any swelling old. He is seen and examined resting comfortably lying flat in bed in no acute distress. He denies active chest discomfort. EKG reveals right bundle branch block, left anterior fascicular block and atrial pacemaker. Chest x-ray is negative for an acute cardiopulmonary process with evidence apparent bronchial cuffing. Laboratory data reviewed, cardiac enzymes negative 4, LDL 43, proBNP 90, WBC 5.6, hemoglobin 12.2, platelets 218, d-dimer 0.3, sodium 140, potassium 4.5, creatinine 0.89, magnesium 1.8. Current cardiac medications include losartan 100 mg daily, simvastatin 40 mg daily and amlodipine 10 mg daily. Most recent echocardiogram obtained August 2018 revealed preserved LV systolic function with ejection fraction 55-60%, moderate aortic stenosis with a mean gradient of 24 mmHg. He underwent cardiac catheterization in 2010 which revealed a mild narrowing of the mid LAD of 10%, otherwise normal coronary arteries. At the time of my exam: CONSTITUTIONAL: Denies fever. Denies chills. EYES: Denies blurred vision. Denies vision changes. Denies eye pain. EARS, NOSE, MOUTH & THROAT: Denies headache. Denies sore throat. Denies ear pain. CARDIOVASCULAR: Denies chest pain. Denies shortness of breath. Denies orthopnea. Denies PND. Denies palpitations. RESPIRATORY: Denies cough. GASTROINTESTINAL: Denies abdominal pain. Denies diarrhea. Denies constipation. Denies nausea. Denies vomiting. MUSCULOSKELETAL: Denies myalgias. INTEGUMENTARY: Denies pruitis. Denies rash. NEUROLOGIC: Denies numbness. Denies tingling. Denies weakness. PSYCHIATRIC: Denies anxiety. Denies depression. ENDOCRINE: Complains of fatigue. Denies weight change. Denies polydipsia. Denies polyurina. GENITOURINARY: Denies burning, hematuria or urgency with micturation. HEMATOLOGIC: Denies history of anemia. Denies bleeding. Blood pressure 116/64 heart rate 61 afebrile maintaining oxygen saturation on nasal cannula GENERAL: This is a 73-year-old male in no apparent distress at the time of my examination. HEENT: Head is atraumatic, normocephalic. Pupils are equal, round. Sclerae anicteric. Conjunctivae are clear. Mucous membranes of the mouth are moist. Neck is supple. There is no jugular venous distention. No carotid bruit is heard. LUNGS: Clear to auscultation no wheezes, rales or rhonchi. No chest wall tenderness is noted on palpation or with deep breathing. HEART: Regular rate and rhythm with systolic ejection murmur listening points most significant at the base with radiation into the neck, no rubs or gallops. S1 and S2 heard. ABDOMEN: Soft, nontender. Bowel sounds are heard. No organomegaly noted. EXTREMITIES: No evidence of peripheral edema and no calf tenderness noted. VASCULAR: Radial and dorsalis pedis pulses palpated, no evidence of clubbing. NEUROLOGIC: Patient is awake, alert and oriented x3. ASSESSMENT Chest pain, acute coronary event has been ruled out. Symptoms suggestive of unstable angina versus progression of valvular heart disease. Aortic stenosis, moderate-severe Hypertension Dyslipidemia Diabetes mellitus History of permanent pacemaker implantation secondary to symptomatic trifascicular block PLAN An acute coronary event has been ruled out. Recommend proceeding with cardiac catheterization to assess for progression of underlying coronary artery disease. Also would recommend HI if unable to accurately assess aortic gradient during cath. I have discussed the risks, benefits and alternative therapies for the above- mentioned procedure and for both sedation/analgesia as well as necessary blood product administration, if indicated, as they pertain to this patient. The patient has indicated understanding and acceptance of the risks and procedures discussed. Questions have been answered appropriately and he is agreeable to move forward with the above stated procedure. Transthoracic echo results reviewed and compared to previous echo. Stenosis appears to have progressed significantly. Further recommendations to follow based on clinical course. Thank you kindly for this consultation. Nurse Practitioner note has been reviewed, I agree with a documented findings and plan of care. Patient was seen and examined. Past Medical History Past Medical History: Diabetes Mellitus, Hearing Disorder / Deafness, Hyperlipidemia, Hypertension, Osteoarthritis (OA) Additional Past Medical History / Comment(s): SEE DR DE LOS SANTOS HISTORY AND PHYSICAL. skin disorder Lichens planus History of Any Multi-Drug Resistant Organisms: None Reported Past Surgical History: Back Surgery, Heart Catheterization, Pacemaker Additional Past Surgical History / Comment(s): CERVICAL FUSION, r shoulder rotator cuff repair Past Anesthesia/Blood Transfusion Reactions: No Reported Reaction Type of Cardiac Device: Unknown Device Placement Date:: october 2014 Past Psychological History: No Psychological Hx Reported Smoking Status: Former smoker Past Alcohol Use History: Occasional Additional Past Alcohol Use History / Comment(s): Patient was a smoker one pack per day for 50 years and quit August 2018. He denies any illicit drug use or alcohol use. He lives at home with his . Past Drug Use History: None Reported - Past Family History Father Family Medical History: Diabetes Mellitus, Renal Disease, Vascular Disorder Additional Family Medical History / Comment(s): Father at age 78 from renal failure with history of pneumonia and peripheral vascular disease. Mother Family Medical History: Hypertension, Musculoskeletal Disorder, Neurologic Disorder Additional Family Medical History / Comment(s): Mother at age 92 with history of Parkinson's, CVA, hypertension. History of pacemaker placement. Daughter(s) Additional Family Medical History / Comment(s): The patient has 2 daughters both with diabetes and one has lichen planus. Brother(s) Family Medical History: Cancer Additional Family Medical History / Comment(s): The patient has 2 brothers: One from lymphoma at age 82 and one at age 62 from pancreatic cancer. Patient does not have any sisters. Medications and Allergies Home Medications Medication Instructions Recorded Confirmed Type Multivitamins, Thera [Multivitamin 1 tab PO DAILY 11/03/14 02/16/19 History (formulary)] Simvastatin [Zocor] 40 mg PO HS 11/03/14 02/16/19 History Insulin Glargine [Lantus] 10 unit SQ DAILY 04/07/16 02/16/19 History Acetaminophen [Tylenol] 325 mg PO Q4H PRN 12/02/16 02/16/19 History metFORMIN HCL [Metformin HCl] 1,000 mg PO BID 12/02/16 02/16/19 History Ubidecarenone [Co Q-10] 100 mg PO DAILY 09/02/17 02/16/19 History Insulin Aspart [NovoLOG Flexpen] See Protocol SQ AC-TID 02/16/19 02/16/19 History Dqqdxe-Smfglwrd-Efbkjso [Zenpep 10] 1 cap PO AC-TID 02/16/19 02/16/19 History Losartan Potassium [Cozaar] 100 mg PO DAILY 02/16/19 02/16/19 History amLODIPine [Norvasc] 10 mg PO DAILY 02/16/19 02/16/19 History Allergies Allergy/AdvReac Type Severity Reaction Status Date / Time cephalexin monohydrate Allergy Dyspnea, Verified 02/16/19 10:05 [From Keflex] RASH Physical Exam Vitals: Vital Signs Temp Pulse Pulse Resp BP BP Pulse Ox 02/17/19 03:03 98.4 F 59 L 18 106/57 92 L 02/16/19 23:16 98.2 F 66 18 97/54 93 L 02/16/19 19:11 97.6 F 61 18 124/57 92 L 02/16/19 15:51 97.4 F L 59 L 18 141/68 94 L 02/16/19 14:30 127/75 02/16/19 14:00 60 20 119/68 92 L 02/16/19 13:30 59 L 17 118/77 94 L 02/16/19 13:00 60 16 124/72 93 L 02/16/19 12:30 60 17 129/68 93 L 02/16/19 12:00 60 10 L 131/72 90 L 02/16/19 11:21 73 16 131/71 93 L 02/16/19 10:30 65 15 129/62 93 L 02/16/19 10:00 60 19 132/64 93 L 02/16/19 09:56 61 14 08/19/19 09:30 98.1 F 62 18 124/68 95 Intake and Output 02/16/19 02/17/19 02/17/19 22:59 06:59 14:59 Other: Voiding Method Toilet Toilet # Voids 1 1 Results 02/16/19 09:55 02/16/19 09:55 Cardiac Enzymes 02/16/19 02/16/19 02/16/19 Range/Units 09:55 09:55 16:00 AST 29 (17-59) U/L Troponin I <0.012 0.016 (0.000-0.034) ng/mL 02/16/19 02/16/19 Range/Units 16:13 20:50 AST (17-59) U/L Troponin I 0.016 <0.012 (0.000-0.034) ng/mL Coagulation 02/16/19 02/16/19 02/17/19 Range/Units 09:55 20:50 06:45 PT 11.2 (9.0-12.0) sec APTT 25.9 56.7 H 48.5 H (22.0-30.0) sec Lipids 02/17/19 Range/Units 06:45 Triglycerides 72 (<150) mg/dL Cholesterol 108 (<200) mg/dL HDL Cholesterol 51 (40-60) mg/dL CBC 02/16/19 Range/Units 09:55 WBC 5.6 (3.8-10.6) k/uL RBC 4.09 L (4.30-5.90) m/uL Hgb 12.2 L (13.0-17.5) gm/dL Hct 37.3 L (39.0-53.0) % Plt Count 218 (150-450) k/uL Comprehensive Metabolic Panel 02/16/19 Range/Units 09:55 Sodium 140 (137-145) mmol/L Potassium 4.5 (3.5-5.1) mmol/L Chloride 105 (98-107) mmol/L Carbon Dioxide 27 (22-30) mmol/L BUN 24 H (9-20) mg/dL Creatinine 0.89 (0.66-1.25) mg/dL Glucose 219 H (74-99) mg/dL Calcium 9.1 (8.4-10.2) mg/dL AST 29 (17-59) U/L ALT 30 (21-72) U/L Alkaline Phosphatase 56 (38-126) U/L Total Protein 6.5 (6.3-8.2) g/dL Albumin 3.9 (3.5-5.0) g/dL Current Medications Generic Name Dose Route Start Last Admin Trade Name Freq PRN Reason Stop Dose Admin Acetaminophen 325 mg 02/16/19 14:14 Tylenol Tab PO Q4H PRN MILD Pain Amlodipine Besylate 10 mg 02/16/19 21:00 02/16/19 20:10 Norvasc PO 10 mg HS ROHAN Administration Lipase/Protease/Amylase 2 each 02/16/19 17:30 02/16/19 17:[address] 5,000 Unit Capsule PO 2 each AC-TID ROHAN Administration Aspirin 81 mg 02/17/19 09:00 Aspirin PO DAILY ROHAN Atorvastatin Calcium 20 mg 02/16/19 21:00 02/16/19 20:10 Lipitor PO 20 mg HS ROHAN Administration Clobetasol Propionate 1 applic 02/16/19 21:00 02/16/19 20:10 Temovate TOPICAL 1 applic BID ROHAN Administration Famotidine 20 mg 02/17/19 09:00 Pepcid PO DAILY ROHAN Insulin Aspart 0 unit 02/16/19 17:30 02/16/19 20:10 Novolog SQ 3 unit ACHS ROHAN Administration Protocol Insulin Detemir 10 unit 02/17/19 09:00 Levemir SQ DAILY ROHAN Insulin Detemir 5 unit 02/16/19 21:00 02/16/19 20:10 Levemir SQ 5 unit HS ROHAN Administration Losartan Potassium 100 mg 02/17/19 09:00 Cozaar PO DAILY ROHAN Metformin HCl 1,000 mg 02/16/19 17:30 02/16/19 17:05 Glucophage PO 1,000 mg AC-BID ROHAN Administration Multivitamins 1 each 02/17/19 09:00 Theragran PO DAILY [facility] Nitroglycerin 1 inch 02/16/19 18:00 02/17/19 05:00 Nitro-Bid Oint TOPICAL Not Given Q6HR [facility] Nitroglycerin 0.4 mg 02/16/19 14:12 Nitrostat SUBLINGUAL Q5M PRN Chest Pain Intake and Output 02/16/19 02/17/19 02/17/19 22:59 06:59 14:59 Other: Voiding Method Toilet Toilet # Voids 1 1 02/16/19 09:55 02/16/19 09:55
[2019-02-17 11:31] LABS: Glucose,Whole Blood 96 mg/dL (75-99)
[2019-02-17] MEDS ORDERED: ALPRAZolam 0.25 MG TAB PO PRN (11:35)
[2019-02-17] MEDS ORDERED: ASPIRIN 325 MG TAB PO STA (11:35)
[2019-02-17] MEDS ORDERED: ALPRAZolam 0.5 MG TAB PO PRN (11:35)
[2019-02-17] MEDS ORDERED: SODIUM CHLORIDE 0.9% 1,000 ML in EMPTY BAG 1 BAG IV ONE (11:35)
[2019-02-17] MEDS: FAMOTIDINE 20 MG TAB PO SCH (11:40)
[2019-02-17] MEDS: LOSARTAN 50 MG TAB PO SCH (11:40)
[2019-02-17] MEDS: DEXTROSE 5%-0.9% NACL 1,000 ML IV SCH ×2 (12:00→20:24)
[2019-02-17] MEDS: MULTIVITAMINS, THERA 1 EACH TAB PO SCH (12:26)
[2019-02-17] MEDS: LIPASE 5,000/PROTEASE 17,000/AMYLASE 24,000 PO SCH ×3 (12:26→17:08)
[2019-02-17] MEDS: ASPIRIN 81 MG PO SCH (12:26)
[2019-02-17] MEDS: metFORMIN 500 MG TAB PO SCH (12:26)
[2019-02-17] MEDS: CLOBETASOL PROP 0.05% CR 15GM TOPICAL SCH ×2 (12:27→20:21)
[2019-02-17] MEDS ORDERED: LIDOCAINE 1% INJ 10MG/ML (20 ML MDV) ONE (14:01)
[2019-02-17] MEDS ORDERED: fentaNYL (PF) 50 MCG/ML 2 ML AMP ONE (14:02)
[2019-02-17] MEDS ORDERED: VERAPAMIL 2.5 MG/ML 2 ML AMP ONE (14:04)
--- NOTE | 2019-02-17 14:06 | P.PN ---
Subjective Progress Note Date: 02/17/19 This is a 73-year-old male patient of Dr. Mc and Dr. 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 Patient did have a stress test in 2014 prior to shoulder surgery which was negative at that time. He has had a previous heart catheterization in July 2011 patient reports was normal. The patient had an episode of chest pain in August while he was helping his daughter move and it was different than anything he had experienced in the past. He did not have any workup at that time. Yesterday, patient was working in the flower bed in the morning and it had to take frequent breaks due to fatigue. By the evening, he was sitting in the chair was having some chest pressure and fatigue. Patient apparently has had fatigue worsening over the past couple months. He also complains of increased edema to the lower extremities for the past week. He thought the discomfort in his chest which was at his lower sternal border was related to ventral hernia. Patient came into [facility] emergency center for evaluation. EKG was a paced rhythm. He was afebrile, blood pressure 124/68, heart rate in the 60s. Pulse ox 95% on room air. Hemoglobin 12.2. Creatinine 0.89, blood sugar 219. Troponin negative on first draw, lipase 66. Liver function tests, electrolytes within normal limits. D-dimer 0.38. Chest x-ray reveals some peribronchial cuffing suggest bronchitis or asthma. No focal infiltrate. Patient was started on full-strength aspirin, heparin drip, Nitropaste and admitted to the observation unit and cardiology consult requested. Troponins ordered. 02/17: Repeat troponins have been negative. Triglycerides 72, cholesterol 108, LDL 43, HDL 51. Patient has been seen by cardiology and scheduled for heart catheterization this afternoon with Dr. Dale. Patient has verbalized concern that his blood sugar is on the low side and also that he has not been receiving his scheduled NovoLog. Most recent blood sugar was 96 and patient will be started on D5 0.9 normal saline until heart catheterization is completed and patient can start on a diet. He has been afebrile, heart rate 60, blood pressure 121/66, pulse ox 93% on room air. Objective - Vital Signs Vital signs: Vital Signs Temp 97.8 F 02/17/19 12:00 Pulse 60 02/17/19 12:00 Resp 16 02/17/19 12:00 BP 121/66 02/17/19 12:00 Pulse Ox 93 L 02/17/19 12:00 Intake & Output 02/16/19 02/17/19 02/17/19 18:59 06:59 18:59 Weight 95.254 kg Other: Voiding Method Toilet Toilet # Voids 1 - Exam Review of Systems Constitutional: Reports fatigue, Reports malaise, Reports weakness, Denies anorexia, Denies chills, Denies fever Ears, nose, mouth and throat: Denies dysphagia, Denies nasal congestion, Denies nasal discharge, Denies vertigo Cardiovascular: Denies chest pain, Reports dyspnea on exertion, Reports leg edema, Denies edema, Denies lightheadedness, Denies shortness of breath, Denies syncope Respiratory: Reports dyspnea, Denies cough, Denies cough with sputum, Denies excessive sputum, Denies hemoptysis, Denies home oxygen, Denies respiratory infections, Denies sleep apnea, Denies wheezing Gastrointestinal: Denies abdominal pain, Denies loss of appetite, Denies melena, Denies nausea, Denies vomiting Genitourinary: Denies dysuria, Denies urinary retention Musculoskeletal: Reports muscle weakness, Denies frequent falls, Denies gait dysfunction Integumentary: Reports lesions, Denies pruritus, Denies rash Neurological: Denies aphasia, Denies change in mentation, Denies change in speech, Denies numbness, Denies seizures, Denies weakness Psychiatric: Denies anxiety, Denies depression Endocrine: Denies fatigue, Denies weight change Physical exam: - Constitutional General appearance: average body habitus, no distress - EENT Eyes: PERRLA ENT: hard of hearing, no pharyngeal erythema, no tonsillar swelling - Neck Neck: no lymphadenopathy, normal ROM, no thyromegaly Carotids: bilateral: bruit absent - Respiratory Respiratory: bilateral: diminished - Cardiovascular Rhythm: regular Heart sounds: normal: S1, S2 Abnormal Heart Sounds: systolic murmur (At the right sternal border) - Gastrointestinal General gastrointestinal: no distended, no hepatomegaly, normal bowel sounds, no organomegaly, soft, no splenomegaly, no tenderness, ventral hernia - Integumentary Integumentary: normal (Bilateral lower extremity skin changes consistent with lichen planus.) - Neurologic Neurologic: CNII-XII intact - Musculoskeletal Musculoskeletal: generalized weakness - Psychiatric Psychiatric: A&O x's 3, appropriate affect, intact judgment & insight - Labs CBC & Chem 7: 02/16/19 09:55 02/16/19 09:55 Labs: Abnormal Lab Results - Last 24 Hours (Table) 02/16/19 02/16/19 02/16/19 Range/Units 16:53 19:55 20:50 APTT 56.7 H (22.0-30.0) sec POC Glucose (mg/dL) 158 H 244 H (75-99) mg/dL 02/17/19 02/17/19 Range/Units 06:45 06:51 APTT 48.5 H (22.0-30.0) sec POC Glucose (mg/dL) 102 H (75-99) mg/dL Assessment and Plan Plan: 1. Chest pain. Patient has been started on full strength aspirin, heparin drip and transferred to the observation unit. Consult with cardiology. Patient is scheduled for heart catheterization with Dr. Dale this afternoon Continue Lipitor. 2. Diabetes mellitus type 2, insulin requiring. Continue Levemir 10 units in the morning and 5 units at bedtime along with NovoLog scale, metformin 1000 mg twice daily. 3. Hypertension. Continue losartan 100 mg daily. 4. Hyperlipidemia. Continue atorvastatin 20 g at bedtime. 5. Lichen planus bilateral lower extremity. Clobetasol cream twice daily. 6. History of tobacco use and dependence. 7. DVT prophylaxis. Heparin drip. 8. GI prophylaxis. Pepcid. Patient placed on observation unit. Discharge plan: Return home Impression and plan of care have been directed as dictated by the signing physician. Jenni Casarez nurse practitioner acting as scribe for signing physician.
[2019-02-17] MEDS ORDERED: fentaNYL (PF) 50 MCG/ML 2 ML AMP IV ONE (14:26)
[2019-02-17] MEDS ORDERED: IV FLUID CONTINUATION 900 ML IV ONE (14:27)
[2019-02-17] MEDS ORDERED: LIDOCAINE 1% INJ 10MG/ML (20 ML MDV) SQ ONE (14:27)
[2019-02-17] MEDS ORDERED: VERAPAMIL SYRINGE (5 MG/10 ML) INTRAARTER ONE (14:30)
[2019-02-17] MEDS ORDERED: HEPARIN SODIUM 1,000 UN/ML (10ML VL) ONE (14:35)
[2019-02-17] MEDS ORDERED: IOPAMIDOL-370 100ML BTL INJ ONE ×2 (14:37)
[2019-02-17] MEDS ORDERED: HEPARIN SODIUM 1,000 UN/ML (10ML VL) IV ONE (14:37)
[2019-02-17] MEDS ORDERED: RX INFO: IV CONTRAST WAS GIVEN 1 EACH MISC MISCELLANE PRN (14:53)
[2019-02-17] MEDS ORDERED: SODIUM CHLORIDE 0.9% 1,000 ML IV SCH (15:00)
[2019-02-17 16:34] LABS: Glucose,Whole Blood 181 mg/dL (75-99)
[2019-02-17 20:20] LABS: Glucose,Whole Blood 271 mg/dL (75-99)
[2019-02-17] MEDS: INSULIN DETEMIR (LEVEMIR) 100 UNIT/ML SYR SQ SCH (20:23)
[2019-02-17] MEDS: amLODIPine 10 MG TAB PO SCH (20:23)
[2019-02-17] MEDS: ATORVASTATIN 20 MG TAB PO SCH (20:23)
--- NOTE | 2019-02-17 20:59 | CC ---
CARDIAC CATHETERIZATION REPORT Mr. Singh is a 73-year-old male with known history of hypertension, hyperlipidemia, diabetes mellitus and history of aortic valve disease who presented with symptoms of progressive dyspnea, fatigue and chest discomfort. His transthoracic echocardiogram revealed progression of his aortic valve gradient. In view of that, recommendation was made regarding cardiac catheterization. The procedure, its risks and complications were discussed with the patient, who was in full understanding and agreement. PROCEDURE DESCRIPTION: Patient was brought to the labeling associate in a fasting, semi-sedated state after receiving fentanyl and Benadryl and achieving a moderate conscious sedated state. Using Xylocaine anesthesia and Seldinger technique, a 6-Tunisian sheath was introduced in the right radial artery. Selective right and left coronary angiography was performed using 5-Tunisian 3-1/2 bend right and left Otf catheters. Multiple views were taken of the coronary arteries, including hemiaxial views. Following that, a 5-Tunisian tight pigtail catheter was introduced in the left ventricle and a 30-degree LAINEZ view of the left ventricle was obtained. Following that, catheter and sheath were removed. Hemostasis was obtained with deployment of a TR band. There was no immediate complication. Patient was returned to his room in stable condition. Of note, the patient received 5000 units of intravenous heparin as well as intra-arterial verapamil. FINDINGS: FLUOROSCOPY: There was severe calcification involving the aortic valve as well as the proximal left main. LEFT MAIN: This is a large-sized vessel bifurcating into left circumflex, left anterior descending artery. Left main coronary artery has no evidence of high-grade stenosis. LEFT ANTERIOR DESCENDING ARTERY: This is a large-sized vessel reaching to the apex with a wrap around the apex segment giving rise to a moderately sized diagonal branch in the mid segment. The left anterior descending artery after the takeoff of the diagonal branch has a 30% plaque. The rest of the vessel has no high-grade stenosis. LEFT CIRCUMFLEX: This is a large dominant vessel giving rise to 2 obtuse marginal branches distally bifurcating into PDA and posterolateral segment and branches. The left circumflex and its branches have no evidence of obstructive coronary artery disease. RIGHT CORONARY ARTERY: This is a small nondominant vessel that has no evidence of high- grade stenosis. LEFT VENTRICULOGRAM: Left ventriculogram was performed in the 30-degree LAINEZ view and revealed a normal left ventricular size. There was inferoapical hypokinesis with ejection fraction if 50%. There was arrhythmia-induced mitral regurgitation. HEMODYNAMICS: There was a 20 to 25 mm peak gradient across the aortic valve. The left ventricular end- diastolic pressure was 16-18 mmHg. CONCLUSION: 1. Mild disease in the mid LAD. 2. Dominant left circumflex. 3. Peak gradient across the aortic valve of 20 to 25 mmHg with arrhythmia-induced mitral regurgitation. RECOMMENDATIONS: In view of findings and anatomy, I have recommended proceeding with transesophageal echocardiogram to further evaluate the aortic valve and guide the treatment. The rationale behind the procedure is to further evaluate the aortic valve and was discussed with the patient. Depending on the results of his transesophageal echocardiogram, further recommendations will be made. Duration of procedure was 22 minutes. MMODL / IJN: [id number] /
[2019-02-18 06:47] LABS: Glucose,Whole Blood 202 mg/dL (75-99)
[2019-02-18] MEDS: LIPASE 5,000/PROTEASE 17,000/AMYLASE 24,000 PO SCH (07:50)
[2019-02-18] MEDS: CLOBETASOL PROP 0.05% CR 15GM TOPICAL SCH (07:50)
[2019-02-18] MEDS: MULTIVITAMINS, THERA 1 EACH TAB PO SCH (07:50)
[2019-02-18] MEDS: ASPIRIN 81 MG PO SCH (08:44)
[2019-02-18] MEDS: LOSARTAN 50 MG TAB PO SCH (08:45)
[2019-02-18] MEDS: INSULIN ASPART (NovoLOG) 100 UNIT/ML VIAL SQ SCH (08:45)
[2019-02-18] MEDS: FAMOTIDINE 20 MG TAB PO SCH (08:45)
[2019-02-18 09:38] LABS: African American GFR (CKD) >90 (>60 ml/min/1.73 sqM); Anion Gap 7 mmol/L; Blood Urea Nitrogen 17 mg/dL (9-20); Carbon Dioxide 26 mmol/L (22-30); Chloride 106 mmol/L (98-107); Glucose 197 mg/dL (74-99); Non-African American GFR(CKD) 89 (>60 ml/min/1.73 sqM); Potassium 4.7 mmol/L (3.5-5.1); Sodium 139 mmol/L (137-145)
[2019-02-18 11:46] LABS: Glucose,Whole Blood 177 mg/dL (75-99)
[2019-02-18] MEDS ORDERED: IV FLUID CONTINUATION 1,000 ML IV ONE (12:40)
[2019-02-18] MEDS ORDERED: BENZOCAINE SPRAY 1 CAN MUCOUS MEM ONE (12:50)
[2019-02-18] MEDS ORDERED: fentaNYL (PF) 50 MCG/ML 2 ML AMP IV ONE (12:58)
[2019-02-18] MEDS ORDERED: MIDAZOLAM PF (FBP) 2 MG/2 ML VIAL IV ONE (12:59)
[2019-02-18] MEDS ORDERED: SODIUM CHLORIDE 0.9% 1,000 ML IV SCH (13:30)
[2019-02-18 13:42] VITALS: RESP 15; TEMP 97.5
--- NOTE | 2019-02-18 13:51 | P.DS ---
Providers Date of admission: 02/16/19 14:12 Expected date of discharge: 02/18/19 Attending physician: Natasha Ren Consults: 02/16/19 14:12 Consult Physician Urgent Consulting Provider: Jo Dale Consult Reason/Comments: Chest pain Do you want consulting provider notified?: Yes Primary care physician: Davi Mc MD Hospital Course: This is a 73-year-old male patient of Dr. Mc and Dr. 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 Patient did have a stress test in 2014 prior to shoulder surgery which was negative at that time. He has had a previous heart catheterization in July 2011 patient reports was normal. The patient had an episode of chest pain in August while he was helping his daughter move and it was different than anything he had experienced in the past. He did not have any workup at that time. Yesterday, patient was working in the flower bed in the morning and it had to take frequent breaks due to fatigue. By the evening, he was sitting in the chair was having some chest pressure and fatigue. Patient apparently has had fatigue worsening over the past couple months. He also complains of increased edema to the lower extremities for the past week. He thought the discomfort in his chest which was at his lower sternal border was related to ventral hernia. Patient came into [facility] emergency center for evaluation. EKG was a paced rhythm. He was afebrile, blood pressure 124/68, heart rate in the 60s. Pulse ox 95% on room air. Hemoglobin 12.2. Creatinine 0.89, blood sugar 219. Troponin negative on first draw, lipase 66. Liver function tests, electrolytes within normal limits. D-dimer 0.38. Chest x-ray reveals some peribronchial cuffing suggest bronchitis or asthma. No focal infiltrate. Patient was started on full-strength aspirin, heparin drip, Nitropaste and admitted to the observation unit and cardiology consult requested. Troponins ordered. 02/17: Repeat troponins have been negative. Triglycerides 72, cholesterol 108, LDL 43, HDL 51. Patient has been seen by cardiology and scheduled for heart catheterization this afternoon with Dr. Dale. Patient has verbalized concern that his blood sugar is on the low side and also that he has not been receiving his scheduled NovoLog. Most recent blood sugar was 96 and patient will be started on D5 0.9 normal saline until heart catheterization is completed and patient can start on a diet. He has been afebrile, heart rate 60, blood pressure 121/66, pulse ox 93% on room air. 02/18:Echocardiogram reveals EF of 55-60% with moderate concentric left ventricular hypertrophy, moderate to severe aortic stenosis, mild mitral regurgitation, mild tricuspid regurgitation. Patient underwent heart catheterization yesterday with Dr. Dale that revealed mild disease in the mid LAD, dominant left circumflex, peak gradient across aortic valve 20-25 mmHg with arrhythmia-induced mitral regurgitation. Patient was then scheduled for HI performed today by Dr. Dale which revealed moderate to severe aortic stenosis and patient will be referred to cardiothoracic surgery as an outpatient. Patient has been afebrile, blood pressure 113/64, pulse ox 93% on room air. Heart rate 76 paced rhythm. Basic metabolic panel within normal limits. Blood sugar yesterday evening running in the 200s, this morning 197. The patient states he has not had any pain since yesterday. Patient is complaining of constipation but will take care of this at home. Patient will be discharged home today in stable condition. Discharge diagnoses: 1. Chest pain. 2. Diabetes mellitus type 2, insulin requiring. 3. Hypertension. 4. Hyperlipidemia. 5. Lichen planus bilateral lower extremity. 6. History of tobacco use and dependence. Discharge plan: Return home Impression and plan of care have been directed as dictated by the signing physician. Jenni Casarez nurse practitioner acting as scribe for signing physician. Patient Condition at Discharge: Good Plan - Discharge Summary Discharge Rx Participant: No New Discharge Prescriptions: New Aspirin 81 mg PO DAILY chew Clobetasol Propionate [Temovate 0.05% Cream] 1 applic TOPICAL BID applic Continue Simvastatin [Zocor] 40 mg PO HS Multivitamins, Thera [Multivitamin (formulary)] 1 tab PO DAILY Insulin Glargine [Lantus] 10 unit SQ DAILY metFORMIN HCL [Metformin HCl] 1,000 mg PO BID Acetaminophen [Tylenol] 325 mg PO Q4H PRN PRN Reason: Pain Ubidecarenone [Co Q-10] 100 mg PO DAILY amLODIPine [Norvasc] 10 mg PO DAILY Eceipz-Axdokzbl-Kdchpdp [Zenpep 10] 1 cap PO AC-TID Insulin Aspart [NovoLOG Flexpen] See Protocol SQ AC-TID Losartan Potassium [Cozaar] 100 mg PO DAILY Discharge Medication List Multivitamins, Thera [Multivitamin (formulary)] 1 tab PO DAILY 11/03/14 [History] Simvastatin [Zocor] 40 mg PO HS 11/03/14 [History] Insulin Glargine [Lantus] 10 unit SQ DAILY 04/07/16 [History] Acetaminophen [Tylenol] 325 mg PO Q4H PRN 12/02/16 [History] metFORMIN HCL [Metformin HCl] 1,000 mg PO BID 12/02/16 [History] Ubidecarenone [Co Q-10] 100 mg PO DAILY 09/02/17 [History] Insulin Aspart [NovoLOG Flexpen] See Protocol SQ AC-TID 02/16/19 [History] Gcqcab-Pycfqvkr-Lqliomk [Zenpep 10] 1 cap PO AC-TID 02/16/19 [History] Losartan Potassium [Cozaar] 100 mg PO DAILY 02/16/19 [History] amLODIPine [Norvasc] 10 mg PO DAILY 02/16/19 [History] Aspirin 81 mg PO DAILY chew 02/18/19 [Rx] Clobetasol Propionate [Temovate 0.05% Cream] 1 applic TOPICAL BID applic 02/18/19 [Rx] Follow up Appointment(s)/Referral(s): Davi Mc MD [Primary Care Provider] - 1 Week Jo Dale MD [STAFF PHYSICIAN] - 02/25/19 10:15 am (with YONATAN Saucedo ) Activity/Diet/Wound Care/Special Instructions: Resume metformin tomorrow. Discharge Disposition: HOME SELF-CARE
[2019-02-18 14:52] VITALS: BP 122/64; PULSE 60
--- NOTE | 2019-02-18 16:06 | ECHOT ---
TRANSESOPHAGEAL ECHOCARDIOGRAM INDICATION: Evaluation of aortic valve. PROCEDURE DESCRIPTION: After explaining the procedure to the patient, its risks and complications, his blood pressure, heart rate and oxygen saturation were monitored. The throat was sprayed with Cetacaine. He received 2 mg intravenous Versed, 50 mcg intravenous fentanyl. The probe was introduced into the esophagus without difficulty. Images were obtained. Following that, the probe was removed. There was no immediate complication. FINDINGS: Left atrial size is mildly dilated. Left atrial appendage is normal. Left ventricular size and systolic function normal. The aortic valve is a tricuspid valve, heavily calcified. By planimetry, the valve area is between 0.9 and 1.0 cm2. The tricuspid valve is normal. Calcification of the mitral valve was noted. Descending thoracic aorta appears to be normal. Contrast bubble study revealed no shunting across the interatrial septum. No pericardial effusion was noted. DOPPLER: Pulse wave and color Doppler were obtained and revealed mild mitral and tricuspid regurgitation with trace to mild aortic regurgitation. The mean gradient across the aortic valve was 32 mmHg with a peak of 58 mmHg. There was no shunting by color Doppler study. CONCLUSION: 1. Mildly dilated left atrium. 2. Normal left ventricular size and systolic function. 3. Moderate to severe aortic stenosis with a mean gradient of 32 mmHg and a valve area ranging between 0.9 and 1 cm2. 4. Mild mitral and tricuspid regurgitation. 5. No shunting across the interatrial septum. 6. Normal appearance of the descending thoracic aorta. MMODL / IJN: [id number] /
== END 2019-02-18 15:35 | disposition home or self-care (01) ==
LOC: EC 09:25 → 1SOBS 14:12
PROVIDERS: ADMIT Internal Medicine; ATTEND Internal Medicine
DX: R07.89 Other chest pain (principal); I08.3 Combined rheumatic disorders of mitral, aortic and tricuspid valves; K43.9 Ventral hernia without obstruction or gangrene; I44.4 Left anterior fascicular block; I25.10 Atherosclerotic heart disease of native coronary artery without angina pectoris; H91.90 Unspecified hearing loss, unspecified ear; R60.9 Edema, unspecified; E11.9 Type 2 diabetes mellitus without complications; M19.90 Unspecified osteoarthritis, unspecified site; L43.9 Lichen planus, unspecified; I10 Essential (primary) hypertension; K59.00 Constipation, unspecified; E78.5 Hyperlipidemia, unspecified; R00.1 Bradycardia, unspecified; Z79.4 Long term (current) use of insulin; Z79.899 Other long term (current) drug therapy; Z88.1 Allergy status to other antibiotic agents; Z95.0 Presence of cardiac pacemaker; Z98.1 Arthrodesis status; Z87.891 Personal history of nicotine dependence; Z86.79 Personal history of other diseases of the circulatory system; Z80.7 Family history of other malignant neoplasms of lymphoid, hematopoietic and related tissues; Z80.0 Family history of malignant neoplasm of digestive organs; Z83.3 Family history of diabetes mellitus; Z84.1 Family history of disorders of kidney and ureter; Z83.6 Family history of other diseases of the respiratory system; Z82.49 Family history of ischemic heart disease and other diseases of the circulatory system; Z82.3 Family history of stroke; Z82.0 Family history of epilepsy and other diseases of the nervous system; Z84.0 Family history of diseases of the skin and subcutaneous tissue
CPT/HCPCS: 96366 ×2; 96376; 96361; 96365; 99291; 36415; 93005; 93312; 93320; 93306; 93325; 93458; 85379; 83880; 80061; 80053; 80048; 82550; 83690; 83735; 84484; 85025; 85610; 85730 ×2; 71046; G0378 ×3; C1769; J1644 ×3; J2001; J3010 ×2; Q9967; J2250

== ENCOUNTER 2019-02-23 14:45 | Emergency (ER) | payer MEDICARE, OTHER ==
[2019-02-23] MEDS ORDERED: SODIUM CHLORIDE 0.9% 1,000 ML IV STA ×3 (15:15→16:24)
--- NOTE | 2019-02-23 15:18 | ED ---
Syncope HPI - General Chief Complaint: Syncope Stated Complaint: Weakness Time Seen by Provider: 02/23/19 14:45 Source: patient, family, EMS, RN notes reviewed, old records reviewed Mode of arrival: EMS Limitations: no limitations - History of Present Illness Initial Comments: This is a 73-year-old male with a recent history of heart catheterization which apparently showed a 33% occlusion of the LAD per his were was brought in by EMS due to a syncopal episode. Patient had been sitting in a toilet and straining he felt very diaphoretic and weak. Had a systolic blood pressure 66 upon arrival EMS his glucose per his was 177. He was out for long it at all. He complains some weakness at this time he was just discharged from the hospital this past Saturday today being Saturday he had had a cardiac catheterization as well as a transesophageal echocardiogram. No other modifying factors at this time. No palpitations no chest pain no focal weakness. MD Complaint: loss of consciousness - Related Data Home Medications Medication Instructions Recorded Confirmed Multivitamins, Thera [Multivitamin 1 tab PO DAILY 11/03/14 02/23/19 (formulary)] Simvastatin [Zocor] 40 mg PO HS 11/03/14 02/23/19 Insulin Glargine [Lantus] 10 unit SQ DAILY 04/07/16 02/23/19 Acetaminophen [Tylenol] 325 mg PO Q4H PRN 12/02/16 02/23/19 metFORMIN HCL [Metformin HCl] 1,000 mg PO BID 12/02/16 02/23/19 Ubidecarenone [Co Q-10] 100 mg PO DAILY 09/02/17 02/23/19 Insulin Aspart [NovoLOG Flexpen] See Protocol SQ AC-TID 02/16/19 02/23/19 Egiiss-Kdbsdufs-Dahwmav [Zenpep 10] 1 cap PO AC-TID 02/16/19 02/23/19 Losartan Potassium [Cozaar] 100 mg PO DAILY 02/16/19 02/23/19 amLODIPine [Norvasc] 10 mg PO DAILY 02/16/19 02/23/19 Aspirin 81 mg PO AC-LUNCH 02/23/19 02/23/19 Previous Rx's Medication Instructions Recorded Clobetasol Propionate [Temovate 1 applic TOPICAL BID applic 02/18/19 0.05% Cream] Allergies Allergy/AdvReac Type Severity Reaction Status Date / Time cephalexin monohydrate Allergy Dyspnea, Verified 02/23/19 15:01 [From Keflex] RASH Review of Systems ROS Statement: Those systems with pertinent positive or pertinent negative responses have been documented in the HPI. ROS Other: All systems not noted in ROS Statement are negative. Past Medical History Past Medical History: Diabetes Mellitus, Hearing Disorder / Deafness, Hyperlipidemia, Hypertension, Osteoarthritis (OA) Additional Past Medical History / Comment(s): SEE DR DE LOS SANTOS HISTORY AND PHYSICAL. skin disorder Lichens planus History of Any Multi-Drug Resistant Organisms: None Reported Past Surgical History: Back Surgery, Heart Catheterization, Pacemaker Additional Past Surgical History / Comment(s): CERVICAL FUSION, r shoulder rotator cuff repair Past Anesthesia/Blood Transfusion Reactions: No Reported Reaction Type of Cardiac Device: Unknown Device Placement Date:: october 2014 Past Psychological History: No Psychological Hx Reported Smoking Status: Former smoker Past Alcohol Use History: Occasional Past Drug Use History: None Reported - Past Family History Father Family Medical History: Diabetes Mellitus, Renal Disease, Vascular Disorder Additional Family Medical History / Comment(s): Father at age 78 from renal failure with history of pneumonia and peripheral vascular disease. Mother Family Medical History: Hypertension, Musculoskeletal Disorder, Neurologic Disorder Additional Family Medical History / Comment(s): Mother at age 92 with history of Parkinson's, CVA, hypertension. History of pacemaker placement. Daughter(s) Additional Family Medical History / Comment(s): The patient has 2 daughters both with diabetes and one has lichen planus. Brother(s) Family Medical History: Cancer Additional Family Medical History / Comment(s): The patient has 2 brothers: One from lymphoma at age 82 and one at age 62 from pancreatic cancer. Patient does not have any sisters. General Exam - General Exam Comments Initial Comments: This is a well-developed well-nourished awake alert oriented times 3 male Limitations: no limitations General appearance: lethargic Head exam: Present: atraumatic, normocephalic, normal inspection Eye exam: Present: normal appearance, PERRL, EOMI. Absent: scleral icterus, conjunctival injection, periorbital swelling ENT exam: Present: mucous membranes dry Neck exam: Present: normal inspection, full ROM. Absent: tenderness, meningismus, lymphadenopathy Respiratory exam: Present: normal lung sounds bilaterally. Absent: respiratory distress, wheezes, rales, rhonchi, stridor Cardiovascular Exam: Present: regular rate, normal rhythm, normal heart sounds, systolic murmur (Cor the aortic valve). Absent: diastolic murmur, rubs, gallop, clicks GI/Abdominal exam: Present: soft, normal bowel sounds. Absent: distended, tenderness, guarding, rebound, rigid, bruit, pulsatile mass Extremities exam: Present: normal inspection, full ROM, normal capillary refill. Absent: tenderness, pedal edema, joint swelling, calf tenderness Back exam: Present: normal inspection Neurological exam: Present: alert, oriented X3, CN II-XII intact Psychiatric exam: Present: normal affect, normal mood Skin exam: Present: warm, dry, intact, normal color. Absent: rash Course Vital Signs 02/23/19 14:47 Temperature 97.6 F Pulse Rate 71 Respiratory 17 Rate Blood Pressure 118/69 O2 Sat by Pulse 96 Oximetry EKG Findings - EKG Results: EKG: interpreted by CRISTIANO (Pacemaker rhythm a 68. Interval 154 QRS 198 QT since QTC 460/497) Medical Decision Making - Medical Decision Making I did reevaluate patient several occasions he is feeling much improved after IV hydration. He did have a bowel movement in the emergency department without any sequela. Patient will be discharged home the presentation is consistent with orthostatic/vasovagal episode - Lab Data Result diagrams: 02/23/19 14:57 02/23/19 14:57 Lab Results 02/23/19 02/23/19 02/23/19 Range/Units 14:57 14:57 14:57 WBC 8.1 (3.8-10.6) k/uL RBC 4.15 L (4.30-5.90) m/uL Hgb 12.5 L (13.0-17.5) gm/dL Hct 38.6 L (39.0-53.0) % MCV 93.0 (80.0-100.0) fL MCH 30.1 (25.0-35.0) pg MCHC 32.3 (31.0-37.0) g/dL RDW 14.8 (11.5-15.5) % Plt Count 222 (150-450) k/uL Neutrophils % 77 % Lymphocytes % 13 % Monocytes % 6 % Eosinophils % 2 % Basophils % 1 % Neutrophils # 6.2 (1.3-7.7) k/uL Lymphocytes # 1.0 (1.0-4.8) k/uL Monocytes # 0.5 (0-1.0) k/uL Eosinophils # 0.2 (0-0.7) k/uL Basophils # 0.1 (0-0.2) k/uL PT 10.7 (9.0-12.0) sec INR 1.0 (<1.2) APTT 21.5 L (22.0-30.0) sec Sodium 140 (137-145) mmol/L Potassium 4.7 (3.5-5.1) mmol/L Chloride 104 (98-107) mmol/L Carbon Dioxide 27 (22-30) mmol/L Anion Gap 9 mmol/L BUN 32 H (9-20) mg/dL Creatinine 0.87 (0.66-1.25) mg/dL Est GFR (CKD-EPI)AfAm >90 (>60 ml/min/1.73 sqM) Est GFR (CKD-EPI)NonAf 85 (>60 ml/min/1.73 sqM) Glucose 200 H (74-99) mg/dL Calcium 9.5 (8.4-10.2) mg/dL Magnesium 2.0 (1.6-2.3) mg/dL Total Bilirubin 0.4 (0.2-1.3) mg/dL AST 39 (17-59) U/L ALT 38 (21-72) U/L Alkaline Phosphatase 72 (38-126) U/L Creatine Kinase 90 (55-170) U/L Troponin I (0.000-0.034) ng/mL Total Protein 6.8 (6.3-8.2) g/dL Albumin 4.1 (3.5-5.0) g/dL 02/23/19 Range/Units 14:57 WBC (3.8-10.6) k/uL RBC (4.30-5.90) m/uL Hgb (13.0-17.5) gm/dL Hct (39.0-53.0) % MCV (80.0-100.0) fL MCH (25.0-35.0) pg MCHC (31.0-37.0) g/dL RDW (11.5-15.5) % Plt Count (150-450) k/uL Neutrophils % % Lymphocytes % % Monocytes % % Eosinophils % % Basophils % % Neutrophils # (1.3-7.7) k/uL Lymphocytes # (1.0-4.8) k/uL Monocytes # (0-1.0) k/uL Eosinophils # (0-0.7) k/uL Basophils # (0-0.2) k/uL PT (9.0-12.0) sec INR (<1.2) APTT (22.0-30.0) sec Sodium (137-145) mmol/L Potassium (3.5-5.1) mmol/L Chloride (98-107) mmol/L Carbon Dioxide (22-30) mmol/L Anion Gap mmol/L BUN (9-20) mg/dL Creatinine (0.66-1.25) mg/dL Est GFR (CKD-EPI)AfAm (>60 ml/min/1.73 sqM) Est GFR (CKD-EPI)NonAf (>60 ml/min/1.73 sqM) Glucose (74-99) mg/dL Calcium (8.4-10.2) mg/dL Magnesium (1.6-2.3) mg/dL Total Bilirubin (0.2-1.3) mg/dL AST (17-59) U/L ALT (21-72) U/L Alkaline Phosphatase (38-126) U/L Creatine Kinase (55-170) U/L Troponin I 0.016 (0.000-0.034) ng/mL Total Protein (6.3-8.2) g/dL Albumin (3.5-5.0) g/dL - EKG Data -: EKG Interpreted by Me (EKG shows a dual paced rhythm rate of 68. Interval 154 QRS 198 QT since QT) - Radiology Data Radiology results: report reviewed (I did review the imaging and report no acute findings.), image reviewed Disposition Clinical Impression: Vasovagal syncope, Syncope due to orthostatic hypotension, Dehydration Disposition: HOME SELF-CARE Condition: Good Instructions (If sedation given, give patient instructions): Dehydration (ED), Syncope (ED) Is patient prescribed a controlled substance at d/c from ED?: No Referrals: Davi Mc MD [Primary Care Provider] - 1-2 days
[2019-02-23 15:39] LABS: Basophils # (A) 0.1 k/uL (0-0.2); Basophils % (A) 1 %; Eosinophils # (A) 0.2 k/uL (0-0.7); Eosinophils % (A) 2 %; HCT 38.6 % (39.0-53.0); HGB 12.5 gm/dL (13.0-17.5); Lymphocytes % (A) 13 %; MCH 30.1 pg (25.0-35.0); MCHC 32.3 g/dL (31.0-37.0); Mean Platelet Volume 6.7; Monocytes # (A) 0.5 k/uL (0-1.0); Monocytes % (A) 6 %; Neutrophils # (A) 6.2 k/uL (1.3-7.7); Neutrophils % (A) 77 %; Platelet Count 222 k/uL (150-450); RBC 4.15 m/uL (4.30-5.90); RDW 14.8 % (11.5-15.5); WBC 8.1 k/uL (3.8-10.6)
[2019-02-23 15:46] LABS: ALT 38 U/L (21-72); AST 39 U/L (17-59); African American GFR (CKD) >90 (>60 ml/min/1.73 sqM); Albumin 4.1 g/dL (3.5-5.0); Alkaline Phosphatase 72 U/L (38-126); Anion Gap 9 mmol/L; Blood Urea Nitrogen 32 mg/dL (9-20); Calcium 9.5 mg/dL (8.4-10.2); Carbon Dioxide 27 mmol/L (22-30); Chloride 104 mmol/L (98-107); Creatine Kinase 90 U/L (55-170); Glucose 200 mg/dL (74-99); Potassium 4.7 mmol/L (3.5-5.1); Sodium 140 mmol/L (137-145); Total Bilirubin 0.4 mg/dL (0.2-1.3); Total Protein 6.8 g/dL (6.3-8.2)
--- NOTE | 2019-02-23 15:51 | XR ---
EXAMINATION TYPE: XR chest 1V portable DATE OF EXAM: 02/23/2019 COMPARISON: 02/16/2019 HISTORY: Syncope TECHNIQUE: Single frontal view of the chest is obtained. FINDINGS: There is no focal air space opacity, pleural effusion, or pneumothorax seen. Multilead le ft-sided cardiac device is seen with mildly enlarged cardiac mediastinal silhouette. The osseous st ructures are intact. IMPRESSION: No acute process.
[2019-02-23 15:56] LABS: Prothrombin Time 10.7 sec (9.0-12.0)
[2019-02-23 16:02] LABS: Partial Thromboplastin Time 21.5 sec (22.0-30.0)
[2019-02-23] MEDS ORDERED: SODIUM CHLORIDE 0.9% 500 ML 500 ML IV STA (16:24)
[2019-02-23 18:55] VITALS: BP 108/77; PULSE 65; RESP 18; TEMP 98
== END 2019-02-23 18:45 | disposition home or self-care (01) ==
LOC: EC 14:45
DX: I95.1 Orthostatic hypotension (principal); E86.0 Dehydration; R01.1 Cardiac murmur, unspecified; E11.9 Type 2 diabetes mellitus without complications; H91.90 Unspecified hearing loss, unspecified ear; E78.5 Hyperlipidemia, unspecified; I10 Essential (primary) hypertension; M19.90 Unspecified osteoarthritis, unspecified site; Z87.891 Personal history of nicotine dependence; Z88.1 Allergy status to other antibiotic agents; Z79.4 Long term (current) use of insulin; Z79.82 Long term (current) use of aspirin; Z79.899 Other long term (current) drug therapy; Z95.0 Presence of cardiac pacemaker; Z95.818 Presence of other cardiac implants and grafts; Z98.1 Arthrodesis status; Z82.49 Family history of ischemic heart disease and other diseases of the circulatory system
CPT/HCPCS: 36415; 71045; 80053; 82550; 83735; 84484; 85025; 85610; 85730; 93005; 96360; 96361; 99285

== ENCOUNTER → 2019-02-25 | Outpatient (CLI) | payer MEDICARE ==
[2019-02-25 11:46] LABS: African American GFR (CKD) >90 (>60 ml/min/1.73 sqM); Blood Urea Nitrogen 27 mg/dL (9-20)
--- NOTE | 2019-02-25 12:40 | CT ---
EXAMINATION TYPE: CT abdomen pelvis w con DATE OF EXAM: 02/25/2019 COMPARISON: None HISTORY: Lower abdominal pain with diarrhea CT DLP: 1687.1 mGycm Automated exposure control for dose reduction was used. CONTRAST: CT scan of the abdomen pelvis is performed with IV Contrast, patient injected with 100 mL of Isovue 3 00. FINDINGS- Exam limited by motion artifact. There is thickening of the wall the sigmoid colon. Mild inflammatory change. Findings may be secondar y to colitis. Occasional diverticula seen but appear to be away from the area of wall thickening. Col itis favored over diverticulitis. Correlate clinically. A mucosal lesion is not excluded. Report call ed to the referring clinician on 02/25/2019 at 12:32 PM. The bowel gas pattern overall is nonspecific without obstruction. Retained fecal debris noted. Artifact limits assessment of the liver and spleen. Grossly no abnormality seen. Cardiac leads are no livan in the heart is enlarged. Bilateral lower lobe atelectasis noted. There is a 2.8 cm solid mass involving the mid lateral pole right kidney suspicious for malignancy. A dditional simple appearing cyst involving the lower pole the right kidney. Nonobstructing 3 mm left renal calculus. Adrenal glands normal morphology. Pancreas has a normal appearance. Aorta of normal caliber with athe rosclerotic changes. Degenerative change of the vertebral column with postsurgical changes. No pathologic adenopathy. IMPRESSION- 1. Sigmoid colon with wall thickening with minimal pericolonic inflammatory change. Colitis is favore d over diverticulitis. Underlying mass not excluded correlate with follow-up to resolution. Findings telephoned to the referring clinician. 2. There is a 2.8 cm solid mass mid pole right kidney laterally suspicious for malignancy. Referring clinician notified by telephone. 3. Nonobstructing left renal calculus
== END | disposition home or self-care (01) ==
LOC: RADCTMAIN 10:31
PROVIDERS: ATTEND Internal Medicine
DX: N20.0 Calculus of kidney (principal); N28.89 Other specified disorders of kidney and ureter; K52.89 Other specified noninfective gastroenteritis and colitis; K63.89 Other specified diseases of intestine
CPT/HCPCS: 82565; 84520; 74177; 36415; Q9967

== ENCOUNTER 2019-02-28 13:26 | Emergency (ER) | payer MEDICARE ==
[2019-02-28 13:47] VITALS: RESP 16
[2019-02-28] MEDS ORDERED: METOCLOPRAMIDE 5 MG/ML 2 ML VIAL IVP STA (14:37)
[2019-02-28 15:22] LABS: Basophils # (A) 0.1 k/uL (0-0.2); Basophils % (A) 1 %; Eosinophils # (A) 0.2 k/uL (0-0.7); Eosinophils % (A) 3 %; HCT 38.6 % (39.0-53.0); HGB 12.6 gm/dL (13.0-17.5); Lymphocytes # (A) 1.3 k/uL (1.0-4.8); Lymphocytes % (A) 21 %; MCH 29.8 pg (25.0-35.0); MCHC 32.5 g/dL (31.0-37.0); MCV 91.6 fL (80.0-100.0); Mean Platelet Volume 6.8; Monocytes # (A) 0.5 k/uL (0-1.0); Monocytes % (A) 7 %; Neutrophils # (A) 4.1 k/uL (1.3-7.7); Neutrophils % (A) 65 %; Platelet Count 249 k/uL (150-450); RBC 4.22 m/uL (4.30-5.90); WBC 6.3 k/uL (3.8-10.6)
[2019-02-28 15:28] LABS: ALT 77 U/L (21-72); AST 64 U/L (17-59); African American GFR (CKD) >90 (>60 ml/min/1.73 sqM); Albumin 3.9 g/dL (3.5-5.0); Alkaline Phosphatase 65 U/L (38-126); Amylase 32 U/L (30-110); Anion Gap 8 mmol/L; Blood Urea Nitrogen 19 mg/dL (9-20); Carbon Dioxide 28 mmol/L (22-30); Chloride 105 mmol/L (98-107); Glucose 164 mg/dL (74-99); Potassium 4.3 mmol/L (3.5-5.1); Sodium 141 mmol/L (137-145); Total Bilirubin 0.2 mg/dL (0.2-1.3); Total Protein 6.6 g/dL (6.3-8.2)
[2019-02-28] MEDS ORDERED: SODIUM CHLORIDE 0.9% 500 ML 500 ML IV STA (15:28)
--- NOTE | 2019-02-28 16:04 | XR ---
EXAMINATION TYPE: XR KUB DATE OF EXAM: 02/28/2019 CLINICAL DATA: 73-year-old male abdominal pain, [facility] COMPARISON: 04/07/2012 FINDINGS: Lung bases are clear. Right atrial and right ventricular pacer leads are seen. No evidence for free intraperitoneal air. Scattered colonic air is present with retained oral contrast material within the left side of the col on. No dilated small bowel or air-fluid levels. L4-L5 posterior and interbody fusion. IMPRESSION: No evidence for free air or bowel obstruction. No significant stool burden. Retained oral contrast ma terial within the left side of the colon.
[2019-02-28 16:13] LABS: Appearance,Urine Clear (Clear); Bilirubin,Urine Negative (Negative); Blood,Urine Negative (Negative); Color,Urine Yellow; Glucose,Urine (UA) Negative (Negative); Ketones,Urine Negative (Negative); Leukocyte Esterase,Urine Negative (Negative); Nitrite,Urine Negative (Negative); Protein,Urine 1+ (Negative); RBC,Urine <1 /hpf (0-5); Specific Gravity,Urine 1.014 (1.001-1.035); Urobilinogen,Urine <2.0 mg/dL (<2.0); WBC,Urine <1 /hpf (0-5)
--- NOTE | 2019-02-28 16:45 | ED ---
Abdominal Pain HPI - General Source: patient Mode of arrival: wheelchair Limitations: no limitations <Hermelindo Liu - Last Filed: 02/28/19 16:54> <Jose Manuel Cartagena - Last Filed: 02/28/19 17:03> - General Chief Complaint: Abdominal Pain Stated Complaint: Constipated, Nausea Time Seen by Provider: 02/28/19 14:01 - History of Present Illness Initial Comments: Patient is a 73-year-old male with history of diabetes is presenting to emergency Department with chief complaint of no bowel movements. Patient was in the emergency department 6 days ago for a syncopal episode while having a bowel movement. reports patient has had diarrhea for past several months. With reports the patient was discharged with ED (Hermelindo Liu) - Related Data Home Medications Medication Instructions Recorded Confirmed Multivitamins, Thera [Multivitamin 1 tab PO DAILY 11/03/14 02/23/19 (formulary)] Simvastatin [Zocor] 40 mg PO HS 11/03/14 02/23/19 Insulin Glargine [Lantus] 10 unit SQ DAILY 04/07/16 02/23/19 Acetaminophen [Tylenol] 325 mg PO Q4H PRN 12/02/16 02/23/19 metFORMIN HCL [Metformin HCl] 1,000 mg PO BID 12/02/16 02/23/19 Ubidecarenone [Co Q-10] 100 mg PO DAILY 09/02/17 02/23/19 Insulin Aspart [NovoLOG Flexpen] See Protocol SQ AC-TID 02/16/19 02/23/19 Bafsoy-Zpclvnfm-Rzxdxqd [Zenpep 10] 1 cap PO AC-TID 02/16/19 02/23/19 Losartan Potassium [Cozaar] 100 mg PO DAILY 02/16/19 02/23/19 amLODIPine [Norvasc] 10 mg PO DAILY 02/16/19 02/23/19 Aspirin 81 mg PO AC-LUNCH 02/23/19 02/23/19 Previous Rx's Medication Instructions Recorded Clobetasol Propionate [Temovate 1 applic TOPICAL BID applic 02/18/19 0.05% Cream] Ondansetron Odt [Zofran Odt] 4 mg PO Q8HR PRN #10 tab 02/28/19 Allergies Allergy/AdvReac Type Severity Reaction Status Date / Time cephalexin monohydrate Allergy Dyspnea, Verified 02/28/19 13:47 [From Keflex] RASH Review of Systems ROS Other: All systems not noted in ROS Statement are negative. <Hermelindo Liu - Last Filed: 02/28/19 16:54> ROS Other: All systems not noted in ROS Statement are negative. <Jose Manuel Cartagena - Last Filed: 02/28/19 17:03> ROS Statement: Those systems with pertinent positive or pertinent negative responses have been documented in the HPI. Past Medical History Past Medical History: Diabetes Mellitus, Hearing Disorder / Deafness, Hyperlipi demia, Hypertension, Osteoarthritis (OA) Additional Past Medical History / Comment(s): SEE DR DE LOS SANTOS HISTORY AND PHYSICAL. skin disorder Lichens planus History of Any Multi-Drug Resistant Organisms: None Reported Past Surgical History: Back Surgery, Heart Catheterization, Pacemaker Additional Past Surgical History / Comment(s): CERVICAL FUSION, r shoulder rotator cuff repair Past Anesthesia/Blood Transfusion Reactions: No Reported Reaction Type of Cardiac Device: Unknown Device Placement Date:: october 2014 Past Psychological History: No Psychological Hx Reported Smoking Status: Former smoker Past Alcohol Use History: Occasional Past Drug Use History: None Reported - Past Family History Father Family Medical History: Diabetes Mellitus, Renal Disease, Vascular Disorder Additional Family Medical History / Comment(s): Father at age 78 from renal failure with history of pneumonia and peripheral vascular disease. Mother Family Medical History: Hypertension, Musculoskeletal Disorder, Neurologic Disorder Additional Family Medical History / Comment(s): Mother at age 92 with history of Parkinson's, CVA, hypertension. History of pacemaker placement. Daughter(s) Additional Family Medical History / Comment(s): The patient has 2 daughters both with diabetes and one has lichen planus. Brother(s) Family Medical History: Cancer Additional Family Medical History / Comment(s): The patient has 2 brothers: One from lymphoma at age 82 and one at age 62 from pancreatic cancer. Patient does not have any sisters. <Hermelindo Liu - Last Filed: 02/28/19 16:54> General Exam Limitations: no limitations <Hermelindo Liu - Last Filed: 02/28/19 16:54> Course <Jose Manuel Cartagena - Last Filed: 02/28/19 17:03> Vital Signs 02/28/19 13:43 Temperature 97.5 F L Pulse Rate 63 Respiratory 16 Rate Blood Pressure 129/74 O2 Sat by Pulse 95 Oximetry - Reevaluation(s) Reevaluation #1: 02/28/19 17:03 PA supervision: I proceeded [id number] evaluation the patient did discuss findings with him and his . Patient is feeling improved he will be discharged with outpatient follow-up. (Jose Manuel Cartagena) Medical Decision Making - Lab Data Result diagrams: 02/28/19 15:10 02/28/19 15:10 <Hermelindo Liu - Last Filed: 02/28/19 16:54> - Lab Data Result diagrams: 02/28/19 15:10 02/28/19 15:10 <Jose Manuel Cartagena - Last Filed: 02/28/19 17:03> - Lab Data Lab Results 02/28/19 02/28/19 02/28/19 Range/Units 15:10 15:10 15:55 WBC 6.3 (3.8-10.6) k/uL RBC 4.22 L (4.30-5.90) m/uL Hgb 12.6 L (13.0-17.5) gm/dL Hct 38.6 L (39.0-53.0) % MCV 91.6 (80.0-100.0) fL MCH 29.8 (25.0-35.0) pg MCHC 32.5 (31.0-37.0) g/dL RDW 15.0 (11.5-15.5) % Plt Count 249 (150-450) k/uL Neutrophils % 65 % Lymphocytes % 21 % Monocytes % 7 % Eosinophils % 3 % Basophils % 1 % Neutrophils # 4.1 (1.3-7.7) k/uL Lymphocytes # 1.3 (1.0-4.8) k/uL Monocytes # 0.5 (0-1.0) k/uL Eosinophils # 0.2 (0-0.7) k/uL Basophils # 0.1 (0-0.2) k/uL Sodium 141 (137-145) mmol/L Potassium 4.3 (3.5-5.1) mmol/L Chloride 105 (98-107) mmol/L Carbon Dioxide 28 (22-30) mmol/L Anion Gap 8 mmol/L BUN 19 (9-20) mg/dL Creatinine 0.77 (0.66-1.25) mg/dL Est GFR (CKD-EPI)AfAm >90 (>60 ml/min/1.73 sqM) Est GFR (CKD-EPI)NonAf 89 (>60 ml/min/1.73 sqM) Glucose 164 H (74-99) mg/dL Calcium 9.0 (8.4-10.2) mg/dL Total Bilirubin 0.2 (0.2-1.3) mg/dL AST 64 H (17-59) U/L ALT 77 H (21-72) U/L Alkaline Phosphatase 65 (38-126) U/L Total Protein 6.6 (6.3-8.2) g/dL Albumin 3.9 (3.5-5.0) g/dL Amylase 32 (30-110) U/L Lipase 26 (23-300) U/L Urine Color Yellow Urine Appearance Clear (Clear) Urine pH 7.0 (5.0-8.0) Ur Specific [place] 1.014 (1.001-1.035) Urine Protein 1+ H (Negative) Urine Glucose (UA) Negative (Negative) Urine Ketones Negative (Negative) Urine Blood Negative (Negative) Urine Nitrite Negative (Negative) Urine Bilirubin Negative (Negative) Urine Urobilinogen <2.0 (<2.0) mg/dL Ur Leukocyte Esterase Negative (Negative) Urine RBC <1 (0-5) /hpf Urine WBC <1 (0-5) /hpf Disposition Is patient prescribed a controlled substance at d/c from ED?: No Time of Disposition: 17:01 <Hermelindo Liu - Last Filed: 02/28/19 16:54> <Jose Manuel Cartagena - Last Filed: 02/28/19 17:03> Clinical Impression: Nausea, Abdominal discomfort Disposition: HOME SELF-CARE Condition: Stable Instructions (If sedation given, give patient instructions): Acute Nausea and Vomiting (ED) Additional Instructions: Please follow with primary care. Please see prescribe medication as directed. Please return to emergency department if symptoms worsen. Prescriptions: Ondansetron Odt [Zofran Odt] 4 mg PO Q8HR PRN #10 tab PRN Reason: Nausea Referrals: Davi Mc MD [Primary Care Provider] - 1-2 days
[2019-02-28] MEDS ORDERED: ONDANSETRON 4 MG ODT STARTER PACK 2 TAB BTL PO STA (16:54)
[2019-02-28 17:30] VITALS: BP 124/76; PULSE 70; TEMP 97.6
== END 2019-02-28 17:20 | disposition home or self-care (01) ==
LOC: EC 13:26
DX: R10.9 Unspecified abdominal pain (principal); R11.0 Nausea; E11.9 Type 2 diabetes mellitus without complications; I10 Essential (primary) hypertension; E78.5 Hyperlipidemia, unspecified; Z79.82 Long term (current) use of aspirin; Z79.4 Long term (current) use of insulin; Z79.899 Other long term (current) drug therapy; Z88.1 Allergy status to other antibiotic agents; Z87.891 Personal history of nicotine dependence; Z95.5 Presence of coronary angioplasty implant and graft; Z95.0 Presence of cardiac pacemaker; Z98.1 Arthrodesis status
CPT/HCPCS: 36415; 80053; 82150; 83690; 85025; 81001; 87045; 87046; 74018; 99284; 96374; 96361; J2765; S0119

== ENCOUNTER 2019-03-13 06:18 | Day surgery (SDC) | payer MEDICARE ==
[2019-03-12 09:05] VITALS: BMI 27.8
[~2019-03-13 06:18] MED LIST changes: -DEXAMETHASONE SOD PHOSPHATE 10 MG/ML 1 ML VIAL IV ONE; -HYDROmorphone 0.5 MG/0.5 ML SYRINGE IVP PRN; -MIDAZOLAM 2 MG/2 ML VIAL IV PRN; -ONDANSETRON 4 MG/2 ML VIAL IVP ONE; -Pre Op ABX Message 1 EACH MISC MISCELLANE ONE
[2019-03-13 06:41] VITALS: RESP 18; TEMP 97.8
[2019-03-13] MEDS ORDERED: LACTATED RINGERS 1,000 ML IV ONE (06:42)
[2019-03-13] MEDS ORDERED: LIDOCAINE 1% 20 ML VIAL (10MG/ML) FOR IV START INTRADERMA ONE (06:42)
[2019-03-13 06:52] LABS: Glucose,Whole Blood 115 mg/dL (75-99)
[2019-03-13] MEDS ORDERED: PROPOFOL 10 MG/ML 20 ML VIAL IV ONE (07:30)
--- NOTE | 2019-03-13 07:57 | P.PCN ---
Date of Procedure: 03/13/19 Procedure(s) Performed: BRIEF HISTORY: Patient is a 73-year-old pleasant white male, scheduled for an elective colonoscopy as a part of evaluation of change in bowel habits for the last 3 weeks' duration. His. His been having alternating severe diarrhea/constipation with bowel movements anywhere from 10-15 a day which are loose to watery in consistency. His parents of no bowel movements for 2-3 days. No bleeding. No recent weight loss. PROCEDURE PERFORMED: Colonoscopy with multiple random biopsies PREOPERATIVE DIAGNOSIS: Chronic diarrhea. IV sedation per Anesthesia. PROCEDURE: After informed consent was obtained, the patient, was brought into the endoscopy unit. IV sedation was administered by Anesthesia under continuous monitoring. Digital rectal examination was normal. Initially the Olympus CF-160 flexible video colonoscope was then inserted in the rectum, gradually advanced into the cecum without any difficulty. Careful examination was performed as the scope was gradually being withdrawn. Ileocecal valve and the appendiceal orifice were visualized and appeared normal. Prep was excellent. Terminal ileum was intubated and 20 cm visualized and appeared normal. Mucosa of the cecum, ascending colon appeared normal. In the hepatic flexure there was a 1 cm semi- was a polyp that was biopsied. The rest of the, transverse colon, descending colon, sigmoid colon, and rectum appeared normal. Random biopsies were done from ascending and descending colon to rule out microscopic/collagenous colitis. Scattered sigmoidal diverticula seen. Retroflexion was performed in the rectum and no lesions were seen. The patient tolerated the procedure well. IMPRESSION: Normal-appearing colon from rectum to cecum with no evidence of colitis . 1 cm Submucosal polyp in the hepatic flexure status post biopsy Scattered sigmoid diverticulosis RECOMMENDATIONS: Findings of this examination were discussed with the patient as well as his family. He was advised to follow with the biopsy results. In the meantime he was advised to use Imodium [id number] as needed.
[2019-03-13 08:03] VITALS: BP 111/69
[2019-03-13 08:18] VITALS: PULSE 70
[2019-03-13 08:28] LABS: Glucose,Whole Blood 108 mg/dL (75-99)
== END 2019-03-13 08:37 | disposition home or self-care (01) ==
LOC: ORWHC2ENDO 06:18
PROVIDERS: ATTEND Internal Medicine Gastroenterology
DX: K63.5 Polyp of colon (principal); K57.30 Diverticulosis of large intestine without perforation or abscess without bleeding; K63.89 Other specified diseases of intestine; K52.9 Noninfective gastroenteritis and colitis, unspecified; I10 Essential (primary) hypertension; E78.5 Hyperlipidemia, unspecified; I35.0 Nonrheumatic aortic (valve) stenosis; E11.9 Type 2 diabetes mellitus without complications; Z98.1 Arthrodesis status; Z79.4 Long term (current) use of insulin; Z79.899 Other long term (current) drug therapy; Z88.1 Allergy status to other antibiotic agents
CPT/HCPCS: 88305; 45380; J2704

== ENCOUNTER → 2019-12-09 | Outpatient (CLI) | payer OTHER ==
[2019-12-09 13:09] LABS: African American GFR (CKD) >90 (>60 ml/min/1.73 sqM); Blood Urea Nitrogen 31 mg/dL (9-20); Non-African American GFR(CKD) 82 (>60 ml/min/1.73 sqM)
--- NOTE | 2019-12-09 17:03 | CT ---
EXAMINATION TYPE: CT abdomen wo/w con DATE OF EXAM: 12/09/2019 COMPARISON: 02/25/2019 INDICATION: follow up known right renal mass DLP: 1870 mGycm, Automated exposure control for dose reduction was used. CONTRAST: 100 mL of Isovue 300. Study performed with Oral Contrast TECHNIQUE: Axial images were obtained from above the diaphragm to the pubic rami in the axial plane a t 5 mm thick sections. Reconstructed images are reviewed on the computer in the coronal plane. FINDINGS: Limited CT sections are obtained the lung bases. The lung bases are clear. Coronary artery calcific ation is present. CT ABDOMEN: Liver: Normal Spleen: Normal Pancreas: Somewhat atrophic Adrenal glands: The adrenal glands are normal. Gallbladder: Normal Kidneys: There is a 3.4 x 2.9 cm slightly less enhancing mass within the renal cortex extending from the posterior lateral right mid kidney. Previous measurement 3.0 x 2.8 cm. No hydronephrosis is prese nt. No cysts are present. Delayed images were obtained through the kidneys. On delayed images the mass is slightly hypodense in relation to the renal cortex. There is a 0.4 cm nonobstructing calcifi cation in the mid left kidney. Cortical renal cyst on the posterior inferior right kidney is present measuring 1.9 cm and 12 Hounsfield units. Aorta: Vascular calcification is within the aorta. Inferior vena cava: Normal. Some beam hardening artifact from lumbar fixation is present. Loops of bowel distended with oral contrast appear normal. The appendix is normal. Fecal debris is wi thin the colon. Oral contrast extends to the distal small bowel loops. IMPRESSIONS: 1. 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
== END | disposition home or self-care (01) ==
LOC: RADCTMAIN 11:55
PROVIDERS: ATTEND Urology
DX: N28.89 Other specified disorders of kidney and ureter (principal)
CPT/HCPCS: 82565; 84520; 74170; Q9967

== ENCOUNTER 2020-03-08 14:31 | Emergency (ER) | payer MEDICARE ==
[2020-03-08 14:39] VITALS: TEMP 98.2
[2020-03-08] MEDS ORDERED: SODIUM CHLORIDE 0.9% 500 ML 500 ML IV STA (15:08)
--- NOTE | 2020-03-08 15:59 | ED ---
General Adult HPI - General Source: patient, RN notes reviewed Mode of arrival: ambulatory Limitations: no limitations <Jayy Luis - Last Filed: 03/08/20 18:16> <Jose Manuel Cartagena - Last Filed: 03/08/20 19:10> - General Chief complaint: Urogenital Stated complaint: blood in urine Time Seen by Provider: 03/08/20 14:49 - History of Present Illness Initial comments: 74-year-old male presents to the emergency room for a chief complaint of "blood in urine." Patient reports that he had about 2 seconds stream of bright red blood with urination today about 30 minutes prior to arrival. Patient is concerned because he had a cryoablation on a lesion of the February 24 at [facility]. He is concerned that his kidney could be bleeding. He denies any urinary symptoms otherwise. CT has a small bruise to the right lower back but otherwise has not had any complications of his surgery. Patient did not contact his calvillo rgeon about this blood.Patient has no other complaints at this time including shortness of breath, chest pain, abdominal pain, nausea or vomiting, headache, or visual changes. (Jayy Luis) - Related Data Home Medications Medication Instructions Recorded Confirmed Multivitamins, Thera [Multivitamin 1 tab PO DAILY 11/03/14 03/12/19 (formulary)] Simvastatin [Zocor] 40 mg PO HS 11/03/14 03/12/19 Insulin Glargine [Lantus] 25 unit SQ DAILY 04/07/16 03/12/19 Acetaminophen [Tylenol] 325 mg PO Q4H PRN 12/02/16 03/12/19 Ubidecarenone [Co Q-10] 200 mg PO DAILY 09/02/17 03/12/19 Losartan Potassium [Cozaar] 50 mg PO DAILY 02/16/19 03/12/19 Aspirin 81 mg PO AC-LUNCH 02/23/19 03/12/19 INSULIN LISPRO (humaLOG) [humaLOG] 0 units SQ AC-TID PRN 03/12/19 03/12/19 INSULIN LISPRO (humaLOG) [humaLOG] 7 units SQ AC-LUNCH 03/12/19 03/12/19 INSULIN LISPRO (humaLOG) [humaLOG] 9 units SQ AC-SUPPER 03/12/19 03/12/19 Insulin Aspart [Novolog] 9 unit SQ AC-BRKFST 03/12/19 03/12/19 Insulin Glargine [Lantus] 15 unit SQ HS 03/12/19 03/12/19 Previous Rx's Medication Instructions Recorded Clobetasol Propionate [Temovate 1 applic TOPICAL BID applic 02/18/19 0.05% Cream] Ondansetron Odt [Zofran Odt] 4 mg PO Q8HR PRN #10 tab 02/28/19 Allergies Allergy/AdvReac Type Severity Reaction Status Date / Time cephalexin monohydrate Allergy Dyspnea, Verified 03/08/20 14:37 [From Keflex] RASH Review of Systems ROS Other: All systems not noted in ROS Statement are negative. <Jayy Luis - Last Filed: 03/08/20 18:16> ROS Other: All systems not noted in ROS Statement are negative. <Jose Manuel Cartagena - Last Filed: 03/08/20 19:10> ROS Statement: Those systems with pertinent positive or pertinent negative responses have been documented in the HPI. Past Medical History Past Medical History: Diabetes Mellitus, Hearing Disorder / Deafness, Hyperlipidemia, Hypertension, Osteoarthritis (OA) Additional Past Medical History / Comment(s): skin disorder Lichens planus. r ecent HI, ECHO, Heart CATH to F/U with dr emily Obando. recent scan indicating kidney mass,colitis. hx diverticulitis. right knee torn meniscus. 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 Past Anesthesia/Blood Transfusion Reactions: No Reported Reaction Type of Cardiac Device: Unknown Device Placement Date:: october 2014 Past Psychological History: No Psychological Hx Reported Smoking Status: Former smoker Past Alcohol Use History: None Reported Past Drug Use History: None Reported - Past Family History Father Family Medical History: Diabetes Mellitus, Renal Disease, Vascular Disorder Additional Family Medical History / Comment(s): Father at age 78 from renal failure with history of pneumonia and peripheral vascular disease. Mother Family Medical History: Hypertension, Musculoskeletal Disorder, Neurologic Disorder Additional Family Medical History / Comment(s): Mother at age 92 with history of Parkinson's, CVA, hypertension. History of pacemaker placement. Daughter(s) Additional Family Medical History / Comment(s): The patient has 2 daughters both with diabetes and one has lichen planus. Brother(s) Family Medical History: Cancer Additional Family Medical History / Comment(s): The patient has 2 brothers: One from lymphoma at age 82 and one at age 62 from pancreatic cancer. Patient does not have any sisters. <Jayy Luis - Last Filed: 03/08/20 18:16> General Exam Limitations: no limitations General appearance: alert, in no apparent distress Head exam: Present: atraumatic, normocephalic, normal inspection Eye exam: Present: normal appearance, PERRL, EOMI. Absent: scleral icterus, conjunctival injection, periorbital swelling ENT exam: Present: normal exam, mucous membranes moist Neck exam: Present: normal inspection, full ROM. Absent: tenderness, meningismus, lymphadenopathy Respiratory exam: Present: normal lung sounds bilaterally. Absent: respiratory distress, wheezes, rales, rhonchi, stridor Cardiovascular Exam: Present: regular rate, normal rhythm, normal heart sounds. Absent: systolic murmur, diastolic murmur, rubs, gallop, clicks GI/Abdominal exam: Present: soft, normal bowel sounds. Absent: distended, tenderness, guarding, rebound, rigid Back exam: Absent: CVA tenderness (R), CVA tenderness (L) <Jayy Luis - Last Filed: 03/08/20 18:16> Course <Jose Manuel Cartagena - Last Filed: 03/08/20 19:10> Vital Signs 03/08/20 03/08/20 14:31 17:22 Temperature 98.2 F Pulse Rate 75 66 Respiratory 18 16 Rate Blood Pressure 146/57 137/68 O2 Sat by Pulse 97 98 Oximetry - Reevaluation(s) Reevaluation #1: 03/08/20 19:09 PA supervision: I personally evaluate this case. Patient did present with complains of hematuria. He workup did ensue. The physician engineer first assistant did discuss case with the urologist report. Patient desires to go home he'll be discharged with outpatient follow-up. I do agree with the assessment and plan. (Jose Manuel Cartagena) Medical Decision Making - Lab Data Result diagrams: 03/08/20 15:40 03/08/20 15:40 <Jayy Luis - Last Filed: 03/08/20 18:16> - Lab Data Result diagrams: 03/08/20 15:40 03/08/20 15:40 <Jose Manuel Cartagena - Last Filed: 03/08/20 19:10> - Medical Decision Making Vitals are stable. CBC is unremarkable. No CVA tenderness. Patient does not take blood thinners. CBC CMP unremarkable. There is some evidence of dehydration, patient was given fluids. Urinalysis shows 46 red blood cells. However here urine is clear. No gross hematuria as reported earlier. CT abdomen and pelvis with contrast showed status post cryoablation of right renal mass. The area is larger but lower density which could reflect necrosis and/or hemorrhage. Has some residual increased densities within the structure could be related to hemorrhage or residual tissue. I did speak with Dr. Nguyen who was on-call for patient's surgeon from [facility]. She reports that she believes the hypo density and larger area is related to freeze thaw. She is not concerned about the small residual increased densities within the kidney. States that these findings are consistent with cryoablation. She reports that there is no evidence of hematoma or filling defects in the bladder and this is reassuring. At this time recommends discharge home. Reports that they will follow up with patient this week. I did speak with patient to make sure to pay attention to when they see blood in urine per Roberto Obando. If symptoms worsen they will call their surgeon or return to the nearest emergency room. I did discuss that it is imperative they wrote return if he is passing clots and is having difficulty urinating as he would need a catheter. However no clots at this time. (Jayy Luis) - Lab Data Lab Results 03/08/20 03/08/20 03/08/20 Range/Units 15:40 15:40 15:40 WBC 6.9 (3.8-10.6) k/uL RBC 4.94 (4.30-5.90) m/uL Hgb 14.5 (13.0-17.5) gm/dL Hct 46.3 (39.0-53.0) % MCV 93.8 (80.0-100.0) fL MCH 29.3 (25.0-35.0) pg MCHC 31.3 (31.0-37.0) g/dL RDW 14.7 (11.5-15.5) % Plt Count 182 (150-450) k/uL Neutrophils % 70 % Lymphocytes % 17 % Monocytes % 7 % Eosinophils % 3 % Basophils % 1 % Neutrophils # 4.8 (1.3-7.7) k/uL Lymphocytes # 1.2 (1.0-4.8) k/uL Monocytes # 0.5 (0-1.0) k/uL Eosinophils # 0.2 (0-0.7) k/uL Basophils # 0.1 (0-0.2) k/uL Hypochromasia Slight PT 10.0 (9.0-12.0) sec INR 1.0 (<1.2) APTT 23.7 (22.0-30.0) sec Sodium 138 (137-145) mmol/L Potassium 4.3 (3.5-5.1) mmol/L Chloride 103 (98-107) mmol/L Carbon Dioxide 30 (22-30) mmol/L Anion Gap 5 mmol/L BUN 29 H (9-20) mg/dL Creatinine 0.92 (0.66-1.25) mg/dL Est GFR (CKD-EPI)AfAm >90 (>60 ml/min/1.73 sqM) Est GFR (CKD-EPI)NonAf 81 (>60 ml/min/1.73 sqM) Glucose 188 H (74-99) mg/dL Calcium 9.2 (8.4-10.2) mg/dL Total Bilirubin 0.3 (0.2-1.3) mg/dL AST 25 (17-59) U/L ALT 17 (4-49) U/L Alkaline Phosphatase 76 (38-126) U/L Total Protein 6.5 (6.3-8.2) g/dL Albumin 3.9 (3.5-5.0) g/dL Urine Color Urine Appearance (Clear) Urine pH (5.0-8.0) Ur Specific [place] (1.001-1.035) Urine Protein (Negative) Urine Glucose (UA) (Negative) Urine Ketones (Negative) Urine Blood (Negative) Urine Nitrite (Negative) Urine Bilirubin (Negative) Urine Urobilinogen (<2.0) mg/dL Ur Leukocyte Esterase (Negative) Urine RBC (0-5) /hpf Urine WBC (0-5) /hpf Ur Squamous Epith Cells (0-4) /hpf 03/08/20 Range/Units 15:48 WBC (3.8-10.6) k/uL RBC (4.30-5.90) m/uL Hgb (13.0-17.5) gm/dL Hct (39.0-53.0) % MCV (80.0-100.0) fL MCH (25.0-35.0) pg MCHC (31.0-37.0) g/dL RDW (11.5-15.5) % Plt Count (150-450) k/uL Neutrophils % % Lymphocytes % % Monocytes % % Eosinophils % % Basophils % % Neutrophils # (1.3-7.7) k/uL Lymphocytes # (1.0-4.8) k/uL Monocytes # (0-1.0) k/uL Eosinophils # (0-0.7) k/uL Basophils # (0-0.2) k/uL Hypochromasia PT (9.0-12.0) sec INR (<1.2) APTT (22.0-30.0) sec Sodium (137-145) mmol/L Potassium (3.5-5.1) mmol/L Chloride (98-107) mmol/L Carbon Dioxide (22-30) mmol/L Anion Gap mmol/L BUN (9-20) mg/dL Creatinine (0.66-1.25) mg/dL Est GFR (CKD-EPI)AfAm (>60 ml/min/1.73 sqM) Est GFR (CKD-EPI)NonAf (>60 ml/min/1.73 sqM) Glucose (74-99) mg/dL Calcium (8.4-10.2) mg/dL Total Bilirubin (0.2-1.3) mg/dL AST (17-59) U/L ALT (4-49) U/L Alkaline Phosphatase (38-126) U/L Total Protein (6.3-8.2) g/dL Albumin (3.5-5.0) g/dL Urine Color Light Yellow Urine Appearance Clear (Clear) Urine pH 6.0 (5.0-8.0) Ur Specific [place] 1.010 (1.001-1.035) Urine Protein Negative (Negative) Urine Glucose (UA) 4+ H (Negative) Urine Ketones Negative (Negative) Urine Blood Moderate H (Negative) Urine Nitrite Negative (Negative) Urine Bilirubin Negative (Negative) Urine Urobilinogen <2.0 (<2.0) mg/dL Ur Leukocyte Esterase Negative (Negative) Urine RBC 46 H (0-5) /hpf Urine WBC 1 (0-5) /hpf Ur Squamous Epith Cells <1 (0-4) /hpf Disposition Is patient prescribed a controlled substance at d/c from ED?: No Time of Disposition: 18:14 <Jayy Luis - Last Filed: 03/08/20 18:16> <Jose Manuel Cartagena - Last Filed: 03/08/20 19:10> Clinical Impression: Hematuria Disposition: HOME SELF-CARE Condition: Good Instructions (If sedation given, give patient instructions): Hematuria (ED) Additional Instructions: Please pay attention to at what point you see the blood in your urine. Roberto Obando will follow up with you this week. However if symptoms worsen please either contact your surgeon or go to the nearest emergency room. If you pass clots and are unable to urinate come to the nearest emergency room. Referrals: Davi Mc MD [Primary Care Provider] - 1-2 days
[2020-03-08 16:01] LABS: Basophils # (A) 0.1 k/uL (0-0.2); Basophils % (A) 1 %; Eosinophils # (A) 0.2 k/uL (0-0.7); Eosinophils % (A) 3 %; HCT 46.3 % (39.0-53.0); HGB 14.5 gm/dL (13.0-17.5); Hypochromasia Slight; Lymphocytes # (A) 1.2 k/uL (1.0-4.8); Lymphocytes % (A) 17 %; MCH 29.3 pg (25.0-35.0); MCHC 31.3 g/dL (31.0-37.0); MCV 93.8 fL (80.0-100.0); Monocytes # (A) 0.5 k/uL (0-1.0); Monocytes % (A) 7 %; Neutrophils # (A) 4.8 k/uL (1.3-7.7); Neutrophils % (A) 70 %; Platelet Count 182 k/uL (150-450); RBC 4.94 m/uL (4.30-5.90); RDW 14.7 % (11.5-15.5); WBC 6.9 k/uL (3.8-10.6)
[2020-03-08 16:04] LABS: Appearance,Urine Clear (Clear); Bilirubin,Urine Negative (Negative); Blood,Urine Moderate (Negative); Color,Urine Light Yellow; Glucose,Urine (UA) 4+ (Negative); Ketones,Urine Negative (Negative); Leukocyte Esterase,Urine Negative (Negative); Nitrite,Urine Negative (Negative); Protein,Urine Negative (Negative); RBC,Urine 46 /hpf (0-5); Squamous Epithelial Cell,Urine <1 /hpf (0-4); Urobilinogen,Urine <2.0 mg/dL (<2.0); WBC,Urine 1 /hpf (0-5)
[2020-03-08 16:10] LABS: Partial Thromboplastin Time 23.7 sec (22.0-30.0)
[2020-03-08 16:11] LABS: ALT 17 U/L (4-49); AST 25 U/L (17-59); African American GFR (CKD) >90 (>60 ml/min/1.73 sqM); Albumin 3.9 g/dL (3.5-5.0); Alkaline Phosphatase 76 U/L (38-126); Anion Gap 5 mmol/L; Blood Urea Nitrogen 29 mg/dL (9-20); Calcium 9.2 mg/dL (8.4-10.2); Carbon Dioxide 30 mmol/L (22-30); Chloride 103 mmol/L (98-107); Glucose 188 mg/dL (74-99); Non-African American GFR(CKD) 81 (>60 ml/min/1.73 sqM); Potassium 4.3 mmol/L (3.5-5.1); Sodium 138 mmol/L (137-145); Total Bilirubin 0.3 mg/dL (0.2-1.3); Total Protein 6.5 g/dL (6.3-8.2)
[2020-03-08 17:23] VITALS: BP 137/68; PULSE 66; RESP 16
--- NOTE | 2020-03-08 17:42 | CT ---
EXAMINATION TYPE: CT abdomen pelvis w con DATE OF EXAM: 03/08/2020 COMPARISON: 12/09/2019 INDICATION: Hematuria. History of right kidney cryablation. DLP: 1645.1 mGycm, Automated exposure control for dose reduction was used. CONTRAST: 100 mL of Isovue 300. Study performed without Oral Contrast TECHNIQUE: Axial images were obtained from above the diaphragm to the pubic rami in the axial plane a t 5 mm thick sections. Reconstructed images are reviewed on the computer in the coronal plane. FINDINGS: Limited CT sections are obtained the lung bases. The lung bases are clear. Cardiac valve surgery is present. CT ABDOMEN: Liver: Normal Spleen: Normal Pancreas: Normal Adrenal glands: The adrenal glands are normal. Gallbladder: Normal Kidneys: Previous mass in the posterior lateral right mid kidney currently measures 4.4 x 3.8 cm. Pre vious measurement 3.4 x 2.9 cm. However, density has markedly diminished and is lower density which c ould be related to the patient's reported cryoablation and necrosis. There are some hyperdense areas remaining within the area which could be related to residual tissue or hemorrhage. Suspicious hemorrh age around the kidney is not evident. The left kidney appears unremarkable. Note is made of a nonobst ructing 0.3 cm calcification in the anterior left mid kidney. There is persistence of the inferior po le left renal cyst measuring 2.0 cm and 7 Hounsfield units. Aorta: Vascular calcification is within the aorta. Inferior vena cava: Normal. CT PELVIS: Loops of bowel within the abdomen and pelvis are normal. There are loops of bowel which are incom pletely distended or lack oral contrast limiting their evaluation. Appendix: Normal as visualized. Urinary bladder: Normal. Genitourinary structures: Prostate is prominent contains few punctate calcifications. Osseous structures: No suspicious lytic or sclerotic lesions. Postsurgical changes are within the low er lumbar spine. IMPRESSIONS: 1. Status post cryoablation of right renal mass. The area is larger but lower density which could re flect necrosis and/or hemorrhage. 2. Some residual increased densities within this structure which could be related to hemorrhage or re sidual tissue.
== END 2020-03-08 18:21 | disposition home or self-care (01) ==
LOC: EC 14:31
DX: R31.9 Hematuria, unspecified (principal); I10 Essential (primary) hypertension; E11.9 Type 2 diabetes mellitus without complications; E86.0 Dehydration; N28.89 Other specified disorders of kidney and ureter; M19.90 Unspecified osteoarthritis, unspecified site; H91.90 Unspecified hearing loss, unspecified ear; S30.0XXA Contusion of lower back and pelvis, initial encounter; E78.5 Hyperlipidemia, unspecified; Z79.82 Long term (current) use of aspirin; Z79.4 Long term (current) use of insulin; Z79.899 Other long term (current) drug therapy; Z88.1 Allergy status to other antibiotic agents; Z87.891 Personal history of nicotine dependence; X58.XXXA Exposure to other specified factors, initial encounter
CPT/HCPCS: 36415; 80053; 85025; 85610; 85730; 81001; 74177; 99284; 96360; 96361; Q9967

== ENCOUNTER → 2020-03-21 | Outpatient (CLI) | payer MEDICARE ==
[2020-03-21 09:58] LABS: Basophils # (A) 0.1 k/uL (0-0.2); Basophils % (A) 1 %; Eosinophils # (A) 0.1 k/uL (0-0.7); Eosinophils % (A) 2 %; HCT 47.5 % (39.0-53.0); HGB 14.5 gm/dL (13.0-17.5); Hypochromasia Slight; Lymphocytes % (A) 17 %; MCH 28.9 pg (25.0-35.0); MCHC 30.5 g/dL (31.0-37.0); MCV 94.8 fL (80.0-100.0); Mean Platelet Volume 6.7; Monocytes # (A) 0.5 k/uL (0-1.0); Monocytes % (A) 8 %; Neutrophils # (A) 4.1 k/uL (1.3-7.7); Neutrophils % (A) 69 %; Platelet Count 171 k/uL (150-450); RBC 5.01 m/uL (4.30-5.90); RDW 14.5 % (11.5-15.5); WBC 5.9 k/uL (3.8-10.6)
[2020-03-21 10:02] LABS: Potassium 4.6 mmol/L (3.5-5.1)
== END | disposition home or self-care (01) ==
LOC: LABPAT 07:55
PROVIDERS: ATTEND Orthopaedic Surgery
DX: Z01.818 Encounter for other preprocedural examination (principal); M23.91 Unspecified internal derangement of right knee
CPT/HCPCS: 36415; 80051; 85025

== ENCOUNTER 2020-04-07 08:47 | Day surgery (SDC) | payer MEDICARE, OTHER ==
[2020-04-04 11:12] VITALS: BMI 27.8
--- NOTE | 2020-04-06 15:36 | HP ---
HISTORY AND PHYSICAL DATE OF SURGERY: 04/07/2020. Luke Singh is a 74-year-old patient seen with progressive right knee pain. We discussed options for treatment, he elected to proceed with arthroscopy. Consent was obtained. Cardiac clearance was provided by Dr. Dale. PAST MEDICAL HISTORY: Cardiovascular disease, hypertension, insulin-dependent diabetes, hyperlipidemia. PAST SURGICAL HISTORY: Lumbar laminectomy. DAILY MEDICATIONS: Flomax, Lantus insulin, losartan, NovoLog insulin, Proscar, simvastatin. ALLERGIES: KEFLEX which causes hives. SOCIAL HISTORY: Denies current tobacco use. PHYSICAL EVALUATION OF HIS RIGHT KNEE: Range of motion is -3/4 to 110. Mild effusion. Tenderness medial joint line. Positive medial Paulette's. Ligaments are stable. Hip rotation without pain. Distal neurovascular exam is intact. RADIOGRAPHS OF THE RIGHT KNEE: Revealed mild osteoarthritis, evidence for vascular calcification. IMPRESSION: 1. Internal derangement, right knee with medial meniscal tear. 2. Right knee osteoarthritis. 3. Cardiovascular disease. 4. Insulin-dependent diabetes. 5. Hypertension. 6. Hyperlipidemia. PLAN: Right knee arthroscopy with partial meniscectomy, partial synovectomy and debridement. MMODL / IJN: [id number] /
[~2020-04-07 08:47] MED LIST changes: +CLINDAMYCIN 600 MG in DEXTROSE 5% IN WATER 50 ML IVPB ONE; +DEXAMETHASONE SOD PHOSPHATE 10 MG/ML 1 ML VIAL IV ONE
[2020-04-07 09:21] VITALS: RESP 16
[2020-04-07] MEDS ORDERED: LIDOCAINE 1% (10MG/ML) FOR IV START INTRADERMA ONE (09:29)
[2020-04-07 09:32] LABS: Glucose,Whole Blood 147 mg/dL (75-99)
[2020-04-07] MEDS ORDERED: ONDANSETRON 4 MG/2 ML VIAL ONE (09:32)
[2020-04-07] MEDS ORDERED: PROPOFOL 10 MG/ML 20 ML VIAL IV ONE (10:39)
[2020-04-07] MEDS ORDERED: MIDAZOLAM 2 MG/2 ML VIAL ONE (10:39)
[2020-04-07] MEDS ORDERED: fentaNYL (PF) 50 MCG/ML 2 ML AMP ONE (10:39)
[2020-04-07] MEDS ORDERED: LIDOCAINE 1% INJ 10MG/ML (20 ML MDV) ONE (10:39)
--- NOTE | 2020-04-07 11:25 | P.OP ---
Date of Procedure: 04/07/20 Preoperative Diagnosis: Internal derangement right knee Postoperative Diagnosis: 1. Tear medial meniscus right knee 2. Grade 2/3 chondromalacia medial femoral condyle right knee 3. 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 Reactive synovitis medial, lateral and suprapatellar compartments right knee Procedure(s) Performed: 1. Arthroscopic partial medial meniscectomy right knee 2. Arthroscopic chondroplasty medial femoral condyle right knee 3. Arthroscopic chondroplasty patella right knee 4. Arthroscopic partial synovectomy medial, lateral and suprapatellar compartments right knee Anesthesia: KORYA, local Surgeon: Gunner Pedersen Estimated Blood Loss (ml): 7 Pathology: none sent Condition: stable Disposition: PACU Indications for Procedure: 74-year-old patient seen with progressive right knee pain. After treatment options were discussed, he elected to proceed with arthroscopy Operative Findings: See description of procedure Description of Procedure: Patient was taken to the operative suite. Patient underwent a general anesthetic by the department of anesthesia. Patient was given preoperative antibiotics. The right lower extremity was placed in a well-padded arthroscopic leg daily. The right leg was prepped and draped in the normal sterile orthopedic fashion. A lateral parapatellar and suprapatellar incision was made. Trochars were inserted. Arthroscopy was initiated. Suprapatellar pouch revealed diffuse thick reactive synovitis. The patellofemoral joint appeared to articulate congruently. There was grade 2/3 chondromalacia of the patella with some osteochondral flap tears present. The scope was guided into the medial gutter. No loose bodies or plica were identified. The scope was then guided into the medial compartment. A medial parapatellar incision was made. Trocar inserted followed by probe. There was a radial tear posterior medial meniscus. There were grade 2/3 chondromalacia changes of medial femoral condyle. There was thick reactive synovitis anteriorly. I performed a partial medial meniscectomy. I performed a chondroplasty of the medial femoral condyle. I performed a partial synovectomy. The residual meniscus was stable. There was good decompression of the synovitis. The residual osteochondral surface was stable. Scope and probe were then guided into the intercondylar notch. Cruciates were identified, probed and found to be stable. The scope and probe were then guided into lateral compartment. Lateral meniscus was probed and found be stable. There was some thick reactive synovitis anteriorly. There were some mild grade 1 chondromalacia changes of the lateral compartment. I introduced a motorized shaver and performed a partial synovectomy. Shaver was removed. There was good decompression of the synovitis. The scope was in guided back into the suprapatellar compartment. I introduced a motorized shaver into the super patellar compartment. I debrided some piecemeal from its of meniscus I encountered. I performed a chondroplasty of the patella. I performed a partial synovectomy. The shaver was removed. There was good decompression of synovitis. The residual osteochondral surface of patella was stable with again grade 2/3 chondromalacia there. I took more look on the entire knee, no residual debris. Instruments were now removed from the joint. The joint was infiltrated with .25% Marcaine. Steri-Strips were applied to the portal sites. Sterile dressings were applied. The patient was placed into a OSIRIS hose. No tourniquet was utilized. The patient was awakened, transferred to a bed and taken to recovery stable satisfactory condition.
[2020-04-07 11:30] VITALS: TEMP 97.1
[2020-04-07 11:43] LABS: Glucose,Whole Blood 157 mg/dL (75-99)
[2020-04-07 13:27] VITALS: BP 126/63; PULSE 60
== END 2020-04-07 13:40 | disposition home or self-care (01) ==
LOC: OR 08:47
PROVIDERS: ATTEND Orthopaedic Surgery
DX: M23.203 Derangement of unspecified medial meniscus due to old tear or injury, right knee (principal); M22.41 Chondromalacia patellae, right knee; M65.861 Other synovitis and tenosynovitis, right lower leg; M17.11 Unilateral primary osteoarthritis, right knee; I11.9 Hypertensive heart disease without heart failure; E11.9 Type 2 diabetes mellitus without complications; E78.5 Hyperlipidemia, unspecified; I35.0 Nonrheumatic aortic (valve) stenosis; N40.0 Benign prostatic hyperplasia without lower urinary tract symptoms; Z85.528 Personal history of other malignant neoplasm of kidney; Z98.890 Other specified postprocedural states; Z79.4 Long term (current) use of insulin; Z79.899 Other long term (current) drug therapy; Z88.1 Allergy status to other antibiotic agents
CPT/HCPCS: 29881; J2250; J1100; J2405; J2001; J3010; J2704

== ENCOUNTER → 2020-04-18 | Outpatient (CLI) | payer OTHER ==
[2020-04-18 14:31] LABS: Urine Creatinine 70.7 mg/dL
== END | disposition home or self-care (01) ==
LOC: LABWHC1 08:35
PROVIDERS: ATTEND Internal Medicine Endocrinology, Diabetes & Metabolism
DX: E11.65 Type 2 diabetes mellitus with hyperglycemia (principal)
CPT/HCPCS: 36415; 82043; 82570; 84443

== ENCOUNTER → 2020-05-18 | Outpatient (CLI) | payer OTHER ==
--- NOTE | 2020-05-18 09:52 | ECHOF ---
Referral Reason:I35.0 Nonrheumatic aortic (valve) stenosis MEASUREMENTS -------- HEIGHT: 177.8 cm WEIGHT: 93.0 kg BP: RVIDd: 2.5 cm (< 3.3) IVSd: 1.7 cm (0.6 - 1.1) LVIDd: 4.0 cm (3.9 - 5.3) LVPWd: 1.3 cm (0.6 - 1.1) IVSs: 2.2 cm LVIDs: 2.2 cm LVPWs: 2.0 cm LA Diam: 3.3 cm (2.7 - 3.8) MV EXCURSION: 19.089 mm (> 18.000) MV EF SLOPE: 38 mm/s (70 - 150) EPSS: 0.7 cm MV E Ole: 1.35 m/s MV DecT: 129 ms MV A Ole: 1.38 m/s MV E/A Ratio: 0.98 AV maxP.47 mmHg AV meanP.74 mmHg AR PHT: 375 ms RAP: 5.00 mmHg RVSP: 10.07 mmHg FINDINGS -------- Paced rhythm. This was a technically good study. The left ventricular size is normal. There is moderate concentric left ventricular hypertrophy. O verall left ventricular systolic function is normal with, an EF between 55 - 60 %. Left ventricular fillimg pressure cannot be estimated due to paced rhythm. The right ventricle is normal in size. The left atrial size is normal. The right atrial size is normal. Trace amount of aortic regurgitation. Peak/mean gradient across the Aortic Valve is 20.47mmHg / 11 .74mmHg. TAVR done The mitral valve is normal. The mitral valve leaflets are mildly thickened. Mild mitral annular c alcification present. Mild mitral regurgitation is present. The tricuspid valve appears structurally normal. Mild tricuspid regurgitation present. Right vent ricular systolic pressure is normal at < 35 mmHg. There is no pulmonic regurgitation present. The aortic root size is normal. Normal inferior vena cava with normal inspiratory collapse consistent with estimated right atrial pre ssure of 5 mmHg. There is no pericardial effusion. CONCLUSIONS -------- 1. Paced rhythm. 2. The left ventricular size is normal. 3. There is moderate concentric left ventricular hypertrophy. 4. Overall left ventricular systolic function is normal with, an EF between 55 - 60 %. 5. Left ventricular fillimg pressure cannot be estimated due to paced rhythm. 6. Trace amount of aortic regurgitation. 7. Peak/mean gradient across the Aortic Valve is 20.47mmHg / 11.74mmHg. 8. TAVR done 9. The mitral valve leaflets are mildly thickened. 10. Mild mitral annular calcification present. 11. Mild mitral regurgitation is present. 12. Mild tricuspid regurgitation present. 13. There is no pericardial effusion. WINDOW REPAIRER: Janey Cantu RDCS
== END | disposition home or self-care (01) ==
LOC: RADECHMAIN 08:27
PROVIDERS: ATTEND Thoracic Surgery (Cardiothoracic Vascular Surgery)
DX: I35.0 Nonrheumatic aortic (valve) stenosis (principal)
CPT/HCPCS: 93306

== ENCOUNTER → 2020-09-14 | Outpatient (CLI) | payer OTHER ==
--- NOTE | 2020-09-14 16:18 | CONS ---
CONSULTATION DATE OF SERVICE: 09/14/2020 This is a 75-year-old gentleman who has been evaluated in the sleep center for possible obstructive sleep apnea-hypopnea syndrome. HISTORY OF PRESENT ILLNESS/SLEEP-WAKE EVALUATION: Patient's usual sleep schedule is from 11 p.m. to 7 a.m. No problems with falling asleep. No TV in bedroom. The patient usually sleeps on the side position. He was told that he stops breathing during the sleep after he had surgery. He wakes up from sleep every 2 hours and up to 5 times goes to the restroom at night. No history of hypnagogic hallucinations, sleep paralysis or cataplexy. During the day the patient may take one nap, usually between 1 and 4 p.m. He feels refreshed after the nap. May see vivid dreams during naps. [place] Sleepiness Scale is increased at 11. PAST MEDICAL HISTORY: Positive for hypertension, hyperlipidemia, arthritis, BPH. PAST SURGICAL HISTORY: Aortic valve replacement with pig valve. Permanent pacemaker insertion. MEDICATIONS: Lantus, NovoLog, losartan, tamsulosin, simvastatin, Jardiance. SOCIAL HISTORY: Positive for smoking for about 50 pack/years; quit 2 years ago. Alcohol consumption: None. FAMILY HISTORY: Positive for stroke. REVIEW OF SYSTEMS: Multiple awakenings from sleep with nocturia. PHYSICAL EXAMINATION: GENERAL: A pleasant gentleman without distress. VITAL SIGNS: BP 123/63, HR 90, RR 18, height 6 feet 0 inches, weight 208.8, temperature 98.2, oxygen saturation at room air 95%, body mass index 28.2. HEENT: PERRLA, EOMI. Evaluation of oropharynx showed tongue protrudes midline. Low position of soft palate. Mallampati III. NECK: Supple. No JVD. Thyroid is not palpable. Neck measures 16 inches in circumference. LUNGS: Clear to percussion and to auscultation. Good air exchange. No wheezing or rhonchi. HEART: S1, S2 regular. No murmurs, gallops or rubs. ABDOMEN: Soft and nontender. Bowel sounds are present. No organomegaly appreciated. EXTREMITIES: No clubbing or cyanosis. MILK TRUCK DRIVER: Awake, alert, and oriented X3. Cranial nerves 2 to 7 intact. There is no fasciculation or atrophy. noted. No focal deficits observed. IMPRESSION: 1. Witnessed episodes of stopped breathing during sleep during surgery, multiple awakenings from sleep with nocturia, low position of soft palate, Mallampati III, excessive daytime sleepiness, [place] Sleepiness Scale is 11; obstructive sleep apnea-hypopnea syndrome. 2. Hypertension. 3. Status post aortic valve replacement with pig valve. 4. Status post permanent pacemaker insertion. 5. Diabetes mellitus. 6. Arthritis. 7. History of smoking for 50 pack/years; quit 2 years ago. PLAN: 1. Polysomnography for evaluation of patient's breathing during sleep. 2. CPAP/BiPAP titration if sleep study confirms obstructive sleep apnea-hypopnea syndrome. 3. Preferable position during sleep on the side. 4. No driving if patient feels any sleepiness. 5. I will see patient for follow up visit to explain results of testing and following plan. Thank you very much for referring this patient for consultation. Sincerely, Connor Monterroso MD, PhD, FAASM Diplomat of [employer] [employer] Synchronizer of [facility] [place] MMODL / IJN: [id number] /
== END ==
LOC: SLEEP 14:53
PROVIDERS: ATTEND Internal Medicine
DX: G47.33 Obstructive sleep apnea (adult) (pediatric) (principal); I10 Essential (primary) hypertension; E11.9 Type 2 diabetes mellitus without complications; M19.90 Unspecified osteoarthritis, unspecified site; Z95.0 Presence of cardiac pacemaker; E78.5 Hyperlipidemia, unspecified; N40.0 Benign prostatic hyperplasia without lower urinary tract symptoms; Z79.4 Long term (current) use of insulin; Z79.899 Other long term (current) drug therapy; Z95.4 Presence of other heart-valve replacement; Z87.891 Personal history of nicotine dependence
CPT/HCPCS: 99211

== ENCOUNTER → 2020-11-02 | Outpatient (CLI) | payer OTHER ==
--- NOTE | 2020-11-02 10:25 | US ---
EXAMINATION TYPE: US scrotum with doppler. Grayscale and color Doppler Duplex imaging performed of yrn frankel scrotum. DATE OF EXAM: 11/02/2020 COMPARISON: NONE CLINICAL HISTORY: R19.00 ABD AND PELVIC PAIN LT GROIN. palpable lump in left groin at hairline, no te sticle complaints EXAM MEASUREMENTS: TESTICLES: Right Testicle: 3.1 x 2.5 x 1.6 cm Left Testicle: 3.3 x 2.1 x 1.9 cm EPIDIDYMIS HEAD: Right Epididymis: 1.4 cm Left Epididymis: 1.0 cm Doppler performed to assess for testicular vascularity; good bilateral color flow and waveforms are s een. There is no evidence of testicular torsion. Presence of hydroceles: no Presence of varicoceles: no Minimal bilateral fluid seen, appears wnl at area of concern on left groin near hair line, 1.8 x 1.8 x 1.2cm complex lesion at skin line IMPRESSION: Probable sebaceous cyst at the site of clinical concern. Correlate clinically.
== END | disposition home or self-care (01) ==
LOC: RADUSWWP 08:55
PROVIDERS: ATTEND Urology
DX: R10.30 Lower abdominal pain, unspecified (principal)
CPT/HCPCS: 76870; 93975

== ENCOUNTER → 2020-12-01 | Outpatient (CLI) | payer OTHER ==
--- NOTE | 2020-12-02 07:14 | SFUN ---
SLEEP CENTER FOLLOW UP NOTE DATE OF SERVICE: 12/01/2020 HISTORY OF PRESENT ILLNESS: This is a 75-year-old gentleman who has been followed in Sleep Center to discuss results of the diagnostic polysomnogram and following plan. I discussed results of the diagnostic polysomnogram with the patient in full detail. Sleep study showed the patient has moderate obstructive sleep apnea-hypopnea syndrome with apnea-hypopnea index 18.5, REM sleep 24.0 with severe oxygen desaturation to 74.8% and oxygen level was below normal range for 25.8 minutes during the sleep study. No significant periodic limb movements have been documented. [place] Sleepiness Scale today is 5. MEDICATIONS: Lantus, NovoLog, losartan, tamsulosin, simvastatin, Jardiance. PHYSICAL EXAMINATION: GENERAL: Patient in no distress. BP 123/64, HR 96, RR 15, height 6 feet 0 inches, weight 210.8, temperature 97.5, oxygen saturation at room air 93%. Body mass index 20.7. HEENT: PERRLA, EOMI, evaluation of oropharynx showed tongue protrudes midline. Low position of soft palate, Mallampati 3. NECK: Supple, no JVD. Thyroid is not palpable. LUNGS: Clear to percussion and to auscultation. Good air exchange. No wheezing or rhonchi. HEART: S1, S2 regular. No murmurs, gallops, or rubs. ABDOMEN: Soft and nontender. Bowel sounds are present. No organomegaly appreciated. EXTREMITIES: No clubbing or cyanosis. COMMUNITY RELATIONS MANAGER: Awake, alert, and oriented X3. Cranial nerves 2 to 7 intact. There is no fasciculation or atrophy. noted. No focal deficits observed. IMPRESSION: 1. Moderate obstructive sleep apnea-hypopnea syndrome with significant oxygen desaturation. 2. Hypertension. 3. Status post aortic valve replacement with pig valve. 4. Status post permanent pacemaker insertion. 5. Diabetes mellitus. 6. Arthritis. 7. History of smoking for 50 pack/years; quit 2 years ago. PLAN: 1. CPAP titration for correction of respiratory abnormalities during sleep. 2. Sleep hygiene with regular time in bed for 7-1/2 to 8 hours. 3. No driving if feeling sleepiness. 4. Losing weight. Thank you very much for allowing me to participate in the management of your patient. Sincerely, Connor Monterroso MD, PhD, FAASM Diplomat of [employer] [employer] [facility] [place] MMODL / NICOLEN: [id number] /
== END ==
LOC: SLEEP 15:18
PROVIDERS: ATTEND Internal Medicine
DX: G47.33 Obstructive sleep apnea (adult) (pediatric) (principal); I10 Essential (primary) hypertension; E11.9 Type 2 diabetes mellitus without complications; M19.90 Unspecified osteoarthritis, unspecified site; Z87.891 Personal history of nicotine dependence; Z95.4 Presence of other heart-valve replacement; Z95.0 Presence of cardiac pacemaker; Z79.84 Long term (current) use of oral hypoglycemic drugs; Z79.899 Other long term (current) drug therapy; Z88.1 Allergy status to other antibiotic agents; Z88.6 Allergy status to analgesic agent
CPT/HCPCS: 99211

== ENCOUNTER → 2021-02-08 | Outpatient (CLI) | payer OTHER ==
--- NOTE | 2021-02-08 14:35 | CT ---
EXAMINATION TYPE: CT angio head neck DATE OF EXAM: 02/08/2021 HISTORY: Stroke, left eye vision loss in AM COMPARISON: CT brain 12/02/2016 CT DLP: 390 mGycm. Automated Exposure Control for Dose Reduction was Utilized. TECHNIQUE: CTA scan of the neck and brain is performed with IV Contrast, patient injected with 65 mL of Isovue 370, axial images are obtained, coronal and sagittal reformatted images are reviewed. Thre e-D reconstructed images are created on an independent workstation and reviewed. FINDINGS: Carotid/Vascular Structures: There are dense calcifications present at the level of the carotid bifur cations. No evident hemodynamic significant stenosis of the proximal internal carotid arteries by JANET CET criteria. There are cerebral vascular calcifications present. The aorta shows atheromatous change , there are 3 super aortic branch vessels. Left and right subclavian arteries, common carotid, music intern al and external carotid, innominate arteries, vertebral arteries are patent, vertebral arteries are c odominant. No evident dissection or aneurysm. Within the brain the [place] of [place] is patent. No evident stenosis, aneurysm, dissection, or embolu s. Other: In the nondependent portion of the trachea on axial image 106 there is a small mucosal irregul arity which could be related to retained secretion but is indeterminate. IMPRESSION: There are atheromatous changes present as described. No significant abnormalities evident however. NASCET criteria was used in interpretation of this exam?
== END | disposition home or self-care (01) ==
LOC: RADCTMAIN 11:35
PROVIDERS: ATTEND Internal Medicine
DX: I63.9 Cerebral infarction, unspecified (principal); H54.62 Unqualified visual loss, left eye, normal vision right eye
CPT/HCPCS: 82565; 84520; 70496; 70498; 36415; Q9967

== ENCOUNTER → 2021-05-10 | Outpatient (CLI) | payer MEDICARE, OTHER ==
--- NOTE | 2021-05-11 08:25 | SFUN ---
SLEEP CENTER FOLLOW UP NOTE DATE OF SERVICE: 05/10/2021 This 75-year-old gentleman has been followed in Sleep Center for treatment of obstructive sleep apnea-hypopnea syndrome. Recently the patient had a polysomnogram which showed that patient has moderate obstructive sleep apnea-hypopnea syndrome. Then he had PAP titration. I explained the results of the sleep studies to the patient in detail. Subsequently patient was started on treatment with CPAP, and today is his first visit after being started on treatment. The patient has difficulties with CPAP. He is practically not able to use it because he feels that it is not comfortable with relation to the pressure and also with relationship to some leak from the full-face mask. I checked his CPAP unit. Range of the pressure is 5 to 15 with average pressure 10.9, usage 24/30 nights, but on only one night out of 30 nights he uses it for more than 4 hours; average usage 2.5 hours per night. Leak is not high at 6 L/minute. Apnea- hypopnea index reading from the machine is only 2.8 which is in normal range. We tried patient on an AirFit F20 mask in the office, and it seems that this mask does not have a significant leak. MEDICATIONS: Jardiance, Lantus, NovoLog, losartan, tamsulosin, simvastatin, aspirin. PHYSICAL EXAMINATION: GENERAL: Pleasant patient in no distress. VITAL SIGNS: BP 163/61, HR 81, RR 18, weight 212.8, temperature 96.9, oxygen saturation at room air 96%. HEENT: PERRLA, EOMI, evaluation of oropharynx showed tongue protrudes midline. Low position of soft palate; Mallampati III. NECK: Supple, no JVD. Thyroid is not palpable. LUNGS: Clear to percussion and to auscultation. Good air exchange. No wheezing or rhonchi. HEART: S1, S2 regular. No murmurs, gallops, or rubs. ABDOMEN: Soft and nontender. Bowel sounds are present. No organomegaly appreciated. EXTREMITIES: No clubbing or cyanosis. RURAL HEALTH CONSULTANT: Awake, alert, and oriented X3. Cranial nerves 2 to 7 intact. There is no fasciculation or atrophy. noted. No focal deficits observed. IMPRESSION: 1. UNIQUE, patient has difficulties with using CPAP, may need BPAP. 2. HTN 3. S/p aortic valve replacement. 4. S/p PPM insertion. 5. Diabetes mellitus. 6. Arthritis. 7. H/o smoking for 50 p/y, quit 2 years ago. PLAN: 1. The patient will try to use CPAP equipment with the AirFit F20 full-face mask. With usage of Simplus full-face mask, he did not feel comfortable and felt that there was a leak, although there was no significant leak by reading from the machine recording. 2. The best results of titration were with the CPAP machine and oxygen supplement. According to the patient, when he is using the machine his oxygen is in the range around 89 to 90 at night, and without the machine it is 90 to 93. That indicates that treatment with BiPAP possibly will be indicated. I believe we should proceed with BiPAP titration and subsequently get BiPAP equipment for the patient. At that time during the test we will also recheck the oximetry level. With BiPAP, the patient's respiration with relationship to oximetry should be better than on the CPAP. 3. Sleep hygiene with regular time in bed for at least 7-1/2 to 8 hours. 4. No driving if feeling sleepiness. Thank you very much for allowing me to participate in the management of your patient. Sincerely, Connor Monterroso MD, PhD, FAASM Diplomat of [employer] [employer] Sleep Medicine Board of [place] [employer] Intrusion Analyst of [facility] [place] MYRTLE / EL: [id number] / NIGEL
== END ==
LOC: SLEEP 14:38
PROVIDERS: ATTEND Internal Medicine
DX: G47.33 Obstructive sleep apnea (adult) (pediatric) (principal); I10 Essential (primary) hypertension; E11.9 Type 2 diabetes mellitus without complications; M19.90 Unspecified osteoarthritis, unspecified site; Z87.891 Personal history of nicotine dependence; Z95.4 Presence of other heart-valve replacement; Z95.0 Presence of cardiac pacemaker; Z99.89 Dependence on other enabling machines and devices; Z79.82 Long term (current) use of aspirin; Z79.4 Long term (current) use of insulin; Z79.899 Other long term (current) drug therapy; Z88.1 Allergy status to other antibiotic agents

== ENCOUNTER 2021-08-26 18:10 | Emergency (ER) | payer OTHER, MEDICARE ==
[2021-08-26] MEDS ORDERED: diphenhydrAMINE 50 MG/ML 1 ML VIAL IVP STA (19:04)
[2021-08-26] MEDS ORDERED: DEXAMETHASONE SOD PHOSPHATE 10 MG/ML 1 ML VIAL IV STA (19:04)
[2021-08-26] MEDS ORDERED: SODIUM CHLORIDE 0.9% 500 ML 500 ML IV STA (19:04)
--- NOTE | 2021-08-26 19:09 | ED ---
General Adult HPI - General Chief complaint: Upper Respiratory Infection Stated complaint: BRANDON/pain all over Time Seen by Provider: 08/26/21 19:00 Source: patient, family, RN notes reviewed, old records reviewed Mode of arrival: ambulatory Limitations: no limitations - History of Present Illness Initial comments: 76-year-old male presents to the emergency room with complaints of headache that started on after having an argument with family members. He has since been feeling fatigued with cough, congestion and body aches. at bedside [facility] he has had a history of migraine headaches in the past. He has been vaccinated against coronavirus and received a booster. He denies any chest pain, fevers, nausea, vomiting or diarrhea. -: days(s) (3) Location: head Quality: aching Consistency: constant Improves with: none Associated Symptoms: headaches, weakness Treatments Prior to Arrival: other (tylenol) - Related Data Home Medications Medication Instructions Recorded Confirmed Aspirin 81 mg PO DAILY 02/23/19 08/26/21 Empagliflozin [Jardiance] 25 mg PO DAILY 04/04/20 08/26/21 Ferrous Sulfate [Feosol] 325 mg PO DAILY 04/04/20 08/26/21 Finasteride [Proscar] 5 mg PO DAILY 04/04/20 08/26/21 Losartan [Cozaar] 50 mg PO DAILY 04/04/20 08/26/21 Multivit-Min/Folic/Vit K/Lycop 1 tab PO DAILY 04/04/20 08/26/21 [Men's Multivitamin Tablet] Tamsulosin [Flomax] 0.4 mg PO BID 04/04/20 08/26/21 Ascorbic Acid [Vitamin C] 1,000 mg PO DAILY 08/26/21 08/26/21 Ergocalciferol [Vitamin D2 (1250 1,250 mcg PO TH 08/26/21 08/26/21 Mcg = 26466 Iu)] Insulin Aspart [NovoLOG Flexpen] 15 units SQ AC-BID 08/26/21 08/26/21 Insulin Aspart [NovoLOG Flexpen] 18 units SQ AC-LUNCH 08/26/21 08/26/21 Insulin Glargine,Hum.rec.anlog 15 unit SQ HS 08/26/21 08/26/21 [Lantus Solostar Pen] Insulin Glargine,Hum.rec.anlog 20 unit SQ DAILY 08/26/21 08/26/21 [Lantus Solostar Pen] Simvastatin [Zocor] 40 mg PO HS 08/26/21 08/26/21 Allergies Allergy/AdvReac Type Severity Reaction Status Date / Time cephalexin monohydrate Allergy Dyspnea, Verified 08/26/21 23:39 [From Keflex] RASH eye gtts ? altofer AdvReac Severe severe Uncoded 08/26/21 18:15 burning eyes 12 hrs. Review of Systems ROS Statement: Those systems with pertinent positive or pertinent negative responses have been documented in the HPI. ROS Other: All systems not noted in ROS Statement are negative. 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 , pacemaker., hx aortic valve replacement. hx diverticulitis. right knee torn meniscus. History of Any Multi-Drug Resistant Organisms: None Reported Past Surgical History: Back Surgery, Heart Catheterization, Pacemaker Additional Past Surgical History / Comment(s): CERVICAL FUSION, PACEMAKER MEDTRONIC (OCTOBER 2014- DR DE LOS SANTOS)., right rotator cuff repair, cryo ablation right kidney tumor. , cataracts, TAVR aortic heart valve replacement. Past Anesthesia/Blood Transfusion Reactions: No Reported Reaction Type of Cardiac Device: Permanent Pacemaker Device Placement Date:: october 2014 Past Psychological History: No Psychological Hx Reported Smoking Status: Former smoker Past Alcohol Use History: None Reported Past Drug Use History: None Reported - Past Family History Father Family Medical History: Diabetes Mellitus, Renal Disease, Vascular Disorder Additional Family Medical History / Comment(s): Father at age 78 from renal failure with history of pneumonia and peripheral vascular disease. Mother Family Medical History: Hypertension, Musculoskeletal Disorder, Neurologic Disorder Additional Family Medical History / Comment(s): Mother at age 92 with history of Parkinson's, CVA, hypertension. History of pacemaker placement. Daughter(s) Additional Family Medical History / Comment(s): The patient has 2 daughters both with diabetes and one has lichen planus. Brother(s) Family Medical History: Cancer Additional Family Medical History / Comment(s): The patient has 2 brothers: One from lymphoma at age 82 and one at age 62 from pancreatic cancer. Patient does not have any sisters. General Exam Limitations: no limitations General appearance: alert, in no apparent distress Head exam: Present: atraumatic Eye exam: Present: EOMI. Absent: scleral icterus, conjunctival injection, nystagmus, periorbital swelling, periorbital tenderness ENT exam: Present: normal oropharynx, mucous membranes moist Neck exam: Absent: tenderness, meningismus, lymphadenopathy Respiratory exam: Present: normal lung sounds bilaterally. Absent: respiratory distress, accessory muscle use Cardiovascular Exam: Present: regular rate GI/Abdominal exam: Present: soft. Absent: distended, tenderness Extremities exam: Present: full ROM, normal capillary refill. Absent: tenderness, pedal edema Neurological exam: Present: alert, oriented X3, normal gait Expanded Patient oriented to: Present: person, place, time Speech: Present: fluid speech Cranial nerves: EOM's Intact: Normal, Gag Reflex: Normal, Tongue Deviation: Normal Cerebellar function: Finger to Nose: Normal, Heel to [place]: Normal Motor strength exam: RUE: 5, LUE: 5, RLE: 4, LLE: 4 Eye Response: (4) open spontaneously Motor Response: (6) obeys commands Verbal Response: (5) oriented [place] Total: 15 Psychiatric exam: Present: normal affect, normal mood Skin exam: Present: warm, dry, normal color. Absent: cyanosis, diaphoretic, pallor Course Vital Signs 08/26/21 08/26/21 08/26/21 18:11 18:45 21:00 Temperature 98.5 F 97.5 F L Pulse Rate 91 84 79 Respiratory 22 14 22 Rate Blood Pressure 145/66 127/67 134/85 O2 Sat by Pulse 95 96 97 Oximetry 08/26/21 08/27/21 22:00 00:22 Temperature 97.4 F L Pulse Rate 70 71 Respiratory 22 22 Rate Blood Pressure 145/89 144/88 O2 Sat by Pulse 96 97 Oximetry EKG Findings - EKG Comments: EKG Findings:: Ventricularly paced rhythm rate of 67, LA interval 0.155, QRS 0.206 and QTC .505 Medical Decision Making - Medical Decision Making CT shows no acute intracranial process. Chest x-ray shows no acute cardiopulmonary disease. Influenza and coronavirus as are negative. Blood glucose is 201. EKG showed ventricularly paced rhythm. Troponin is 0.021 Patient states that he is feeling much better after IV fluids, Benadryl and Decadron for his headache. He states he feels well enough to go home. Patient states he does have a history of migraine headaches and this does seem similar to him. I did discuss with the patient and his and I believe this is likely a viral illness causing his symptoms however I directed him to follow up with his primary care doctor on Saturday and return to the emergency room with any new or worsening symptoms including worsening headache, any focal weakness, chest pain or difficulty breathing. Case discussed with Dr. Joel - Lab Data Result diagrams: 08/26/21 22:08/26/21 20:00 Lab Results 08/26/21 08/26/21 08/26/21 Range/Units 19:22 20:00 20:00 WBC (3.8-10.6) k/uL RBC (4.30-5.90) m/uL Hgb (13.0-17.5) gm/dL Hct (39.0-53.0) % MCV (80.0-100.0) fL MCH (25.0-35.0) pg MCHC (31.0-37.0) g/dL RDW (11.5-15.5) % Plt Count (150-450) k/uL MPV Neutrophils % % Lymphocytes % % Monocytes % % Eosinophils % % Basophils % % Neutrophils # (1.3-7.7) k/uL Lymphocytes # (1.0-4.8) k/uL Monocytes # (0-1.0) k/uL Eosinophils # (0-0.7) k/uL Basophils # (0-0.2) k/uL Hypochromasia PT (9.0-12.0) sec INR (<1.2) APTT (22.0-30.0) sec Sodium 140 (137-145) mmol/L Potassium 4.5 (3.5-5.1) mmol/L Chloride 106 (98-107) mmol/L Carbon Dioxide 24 (22-30) mmol/L Anion Gap 10 mmol/L BUN 34 H (9-20) mg/dL Creatinine 1.11 (0.66-1.25) mg/dL Est GFR (CKD-EPI)AfAm 73 (>60 ml/min/1.73 sqM) Est GFR (CKD-EPI)NonAf 63 (>60 ml/min/1.73 sqM) Glucose 201 H (74-99) mg/dL Plasma Lactic Acid Mejia (0.7-2.0) mmol/L Calcium 8.5 (8.4-10.2) mg/dL Magnesium 2.2 (1.6-2.3) mg/dL Total Bilirubin 0.5 (0.2-1.3) mg/dL AST 38 (17-59) U/L ALT 29 (4-49) U/L Alkaline Phosphatase 59 (38-126) U/L Troponin I 0.021 (0.000-0.034) ng/mL Total Protein 6.2 L (6.3-8.2) g/dL Albumin 3.5 (3.5-5.0) g/dL Urine Color Urine Appearance (Clear) Urine pH (5.0-8.0) Ur Specific Carter (1.001-1.035) Urine Protein (Negative) Urine Glucose (UA) (Negative) Urine Ketones (Negative) Urine Blood (Negative) Urine Nitrite (Negative) Urine Bilirubin (Negative) Urine Urobilinogen (<2.0) mg/dL Ur Leukocyte Esterase (Negative) Influenza Type A (PCR) Not Detected (Not Detectd) Influenza Type B (PCR) Not Detected (Not Detectd) RSV (PCR) Not Detected (Not Detectd) SARS-CoV-2 (PCR) Not Detected (Not Detectd) 08/26/21 08/26/21 08/26/21 Range/Units 20:08 22:00 22:28 WBC 5.1 (3.8-10.6) k/uL RBC 4.69 (4.30-5.90) m/uL Hgb 14.6 (13.0-17.5) gm/dL Hct 45.9 (39.0-53.0) % MCV 97.8 (80.0-100.0) fL MCH 31.1 (25.0-35.0) pg MCHC 31.8 (31.0-37.0) g/dL RDW 13.8 (11.5-15.5) % Plt Count 171 (150-450) k/uL MPV 7.0 Neutrophils % 87 % Lymphocytes % 7 % Monocytes % 3 % Eosinophils % 1 % Basophils % 1 % Neutrophils # 4.5 (1.3-7.7) k/uL Lymphocytes # 0.4 L (1.0-4.8) k/uL Monocytes # 0.2 (0-1.0) k/uL Eosinophils # 0.0 (0-0.7) k/uL Basophils # 0.0 (0-0.2) k/uL Hypochromasia Slight PT (9.0-12.0) sec INR (<1.2) APTT (22.0-30.0) sec Sodium (137-145) mmol/L Potassium (3.5-5.1) mmol/L Chloride (98-107) mmol/L Carbon Dioxide (22-30) mmol/L Anion Gap mmol/L BUN (9-20) mg/dL Creatinine (0.66-1.25) mg/dL Est GFR (CKD-EPI)AfAm (>60 ml/min/1.73 sqM) Est GFR (CKD-EPI)NonAf (>60 ml/min/1.73 sqM) Glucose (74-99) mg/dL Plasma Lactic Acid Mejia 1.4 (0.7-2.0) mmol/L Calcium (8.4-10.2) mg/dL Magnesium (1.6-2.3) mg/dL Total Bilirubin (0.2-1.3) mg/dL AST (17-59) U/L ALT (4-49) U/L Alkaline Phosphatase (38-126) U/L Troponin I (0.000-0.034) ng/mL Total Protein (6.3-8.2) g/dL Albumin (3.5-5.0) g/dL Urine Color Light Yellow Urine Appearance Clear (Clear) Urine pH 6.0 (5.0-8.0) Ur Specific Carter 1.024 (1.001-1.035) Urine Protein Trace H (Negative) Urine Glucose (UA) 4+ H (Negative) Urine Ketones Negative (Negative) Urine Blood Negative (Negative) Urine Nitrite Negative (Negative) Urine Bilirubin Negative (Negative) Urine Urobilinogen <2.0 (<2.0) mg/dL Ur Leukocyte Esterase Negative (Negative) Influenza Type A (PCR) (Not Detectd) Influenza Type B (PCR) (Not Detectd) RSV (PCR) (Not Detectd) SARS-CoV-2 (PCR) (Not Detectd) 08/26/21 Range/Units 22:28 WBC (3.8-10.6) k/uL RBC (4.30-5.90) m/uL Hgb (13.0-17.5) gm/dL Hct (39.0-53.0) % MCV (80.0-100.0) fL MCH (25.0-35.0) pg MCHC (31.0-37.0) g/dL RDW (11.5-15.5) % Plt Count (150-450) k/uL MPV Neutrophils % % Lymphocytes % % Monocytes % % Eosinophils % % Basophils % % Neutrophils # (1.3-7.7) k/uL Lymphocytes # (1.0-4.8) k/uL Monocytes # (0-1.0) k/uL Eosinophils # (0-0.7) k/uL Basophils # (0-0.2) k/uL Hypochromasia PT 10.9 (9.0-12.0) sec INR 1.0 (<1.2) APTT 24.0 (22.0-30.0) sec Sodium (137-145) mmol/L Potassium (3.5-5.1) mmol/L Chloride (98-107) mmol/L Carbon Dioxide (22-30) mmol/L Anion Gap mmol/L BUN (9-20) mg/dL Creatinine (0.66-1.25) mg/dL Est GFR (CKD-EPI)AfAm (>60 ml/min/1.73 sqM) Est GFR (CKD-EPI)NonAf (>60 ml/min/1.73 sqM) Glucose (74-99) mg/dL Plasma Lactic Acid Mejia (0.7-2.0) mmol/L Calcium (8.4-10.2) mg/dL Magnesium (1.6-2.3) mg/dL Total Bilirubin (0.2-1.3) mg/dL AST (17-59) U/L ALT (4-49) U/L Alkaline Phosphatase (38-126) U/L Troponin I (0.000-0.034) ng/mL Total Protein (6.3-8.2) g/dL Albumin (3.5-5.0) g/dL Urine Color Urine Appearance (Clear) Urine pH (5.0-8.0) Ur Specific Carter (1.001-1.035) Urine Protein (Negative) Urine Glucose (UA) (Negative) Urine Ketones (Negative) Urine Blood (Negative) Urine Nitrite (Negative) Urine Bilirubin (Negative) Urine Urobilinogen (<2.0) mg/dL Ur Leukocyte Esterase (Negative) Influenza Type A (PCR) (Not Detectd) Influenza Type B (PCR) (Not Detectd) RSV (PCR) (Not Detectd) SARS-CoV-2 (PCR) (Not Detectd) Disposition Clinical Impression: Headache Disposition: HOME SELF-CARE Condition: Good Instructions (If sedation given, give patient instructions): Acute Headache (ED) Additional Instructions: Follow-up with your primary care doctor next week. Return to the emergency room with any new or concerning symptoms. Increase your fluid intake. Is patient prescribed a controlled substance at d/c from ED?: No Referrals: None,Stated [REFERRING] - 1-2 days Time of Disposition: 00:19
[2021-08-26 20:14] LABS: Influenza A Not Detected (Not Detectd); Influenza B Not Detected (Not Detectd)
[2021-08-26 20:34] LABS: Albumin 3.5 g/dL (3.5-5.0); Calcium 8.5 mg/dL (8.4-10.2); Magnesium 2.2 mg/dL (1.6-2.3); Potassium 4.5 mmol/L (3.5-5.1); Total Bilirubin 0.5 mg/dL (0.2-1.3); Total Protein 6.2 g/dL (6.3-8.2)
--- NOTE | 2021-08-26 21:50 | XR ---
EXAMINATION TYPE: XR chest 2V DATE OF EXAM: 08/26/2021 8:50 PM COMPARISON:Chest radiographs from 02/23/2019 TECHNIQUE: XR chest 2V Frontal and lateral views of the chest. CLINICAL INDICATION:Male, 76 years old with history of Weakness; FINDINGS: Lungs/Pleura: There is no evidence of pleural effusion, focal consolidation, or pneumothorax. Pulmonary vascularity: Unremarkable. Heart/mediastinum: Cardiomediastinal silhouette is unremarkable. Two lead cardiac conduction device o verlying the left hemithorax with lead tips projecting over the right ventricle and right atrium. Musculoskeletal: No acute osseous pathology. IMPRESSION: No acute cardiopulmonary disease/process.
--- NOTE | 2021-08-26 21:52 | CT ---
EXAMINATION TYPE: CT brain wo con CT DLP: 1159.4 mGycm, Automated exposure control for dose reduction was used. DATE OF EXAM: 08/26/2021 9:08 PM COMPARISON: Prior CT Brain from 12/02/2016 . CLINICAL INDICATION:Male, 76 years old with history of Headache. TECHNIQUE: Brain: Multiple axial CT images of the brain were obtained without IV contrast. FINDINGS: Brain: Extra-axial spaces: No abnormal extra-axial fluid collections. Ventricular system: Within normal limits Cerebral parenchyma: No acute intraparenchymal hemorrhage or mass effect. The giron-white junction is well differentiated. Cerebellum: Unremarkable. Mass effect: No evidence of midline shift. Intracranial vasculature: Atherosclerotic calcifications of the intracranial vessels. Soft tissues: Normal. Calvarium/osseous structures: No depressed skull fracture. Paranasal sinuses and mastoid air cells: Mild scattered paranasal sinus disease. Visualized orbits: Bilateral aphakia IMPRESSION: No acute intracranial process, no significant change from prior.
[2021-08-26 22:00] VITALS: RESP 22
[2021-08-26 22:10] LABS: Appearance,Urine Clear (Clear); Bilirubin,Urine Negative (Negative); Blood,Urine Negative (Negative); Color,Urine Light Yellow; Glucose,Urine (UA) 4+ (Negative); Ketones,Urine Negative (Negative); Leukocyte Esterase,Urine Negative (Negative); Nitrite,Urine Negative (Negative); Protein,Urine Trace (Negative); Specific Gravity,Urine 1.024 (1.001-1.035); Urobilinogen,Urine <2.0 mg/dL (<2.0)
[2021-08-26 23:08] LABS: Prothrombin Time 10.9 sec (9.0-12.0)
[2021-08-26 23:12] LABS: Basophils % (A) 1 %; Eosinophils % (A) 1 %; HCT 45.9 % (39.0-53.0); HGB 14.6 gm/dL (13.0-17.5); Hypochromasia Slight; Lymphocytes # (A) 0.4 k/uL (1.0-4.8); Lymphocytes % (A) 7 %; MCH 31.1 pg (25.0-35.0); MCHC 31.8 g/dL (31.0-37.0); MCV 97.8 fL (80.0-100.0); Monocytes # (A) 0.2 k/uL (0-1.0); Monocytes % (A) 3 %; Neutrophils # (A) 4.5 k/uL (1.3-7.7); Neutrophils % (A) 87 %; Platelet Count 171 k/uL (150-450); RBC 4.69 m/uL (4.30-5.90); RDW 13.8 % (11.5-15.5); WBC 5.1 k/uL (3.8-10.6)
[2021-08-27 00:28] VITALS: BP 144/88; PULSE 71; TEMP 97.4
== END 2021-08-27 00:28 | disposition home or self-care (01) ==
LOC: EC 18:10
DX: R51.9 Headache, unspecified (principal); Z20.822 Contact with and (suspected) exposure to COVID-19; E11.9 Type 2 diabetes mellitus without complications; I10 Essential (primary) hypertension; E78.5 Hyperlipidemia, unspecified; M19.90 Unspecified osteoarthritis, unspecified site; Z87.891 Personal history of nicotine dependence; Z79.4 Long term (current) use of insulin; Z79.84 Long term (current) use of oral hypoglycemic drugs; Z79.82 Long term (current) use of aspirin; Z79.899 Other long term (current) drug therapy
CPT/HCPCS: 36415; 93005; 80053; 83605; 83735; 84484; 85025; 85610; 85730; 81003; 87636; 71046; 70450; 99284; 96374; 96375; 96361 ×2; J1200; J1100

== ENCOUNTER → 2021-09-06 | Outpatient (CLI) | payer OTHER ==
--- NOTE | 2021-09-06 14:57 | US ---
EXAMINATION TYPE: US kidneys/renal and bladder DATE OF EXAM: 09/06/2021 COMPARISON: CT CLINICAL HISTORY: N18.2 CHRONIC KIDNEY DISEASE. CKD, pt states history of right renal CA with surgery to the right kidney in 2019 EXAM MEASUREMENTS: Right Kidney: 12.0 x 5.8 x 5.1 cm Left Kidney: 12.1 x 6.5 x 6.0 cm Right Kidney: Cyst lower pole= 2.1 x 1.8 x 2.7 cm/ possible solid lesion mid/lateral= 2.9 x 2.4 x 2.3 cm Left Kidney: Possible 0.6 cm renal calculi mid/lower, otherwise appeared wnl Bladder: wnl Bilateral Jets seen: Yes There is no evidence for hydronephrosis at this point in time. The urinary bladder is anechoic. Charli ateral ureteral jets are seen. IMPRESSION: 1. Solid mass lower pole of the right kidney is difficult to exclude. Contrast CT of the abdomen is a dvised. 2. Nonobstructing left renal calculus.
== END | disposition home or self-care (01) ==
LOC: RADUSWWP 14:15
PROVIDERS: ATTEND Internal Medicine
DX: N20.0 Calculus of kidney (principal)
CPT/HCPCS: 76770

== ENCOUNTER → 2021-09-25 | Outpatient (CLI) | payer OTHER ==
--- NOTE | 2021-09-25 19:27 | BD ---
EXAMINATION TYPE: Axial Bone Density DATE OF EXAM: 09/25/2021 COMPARISON: NONE CLINICAL HISTORY: 76 year old Male. ICD-10 CODE: M81.0 AGE RELATED OSTEOPOROSIS Height: 70 Weight: 211.7 FRAX RISK QUESTIONS: Alcohol (3 or more units per day): no Family History (Parent hip fracture): no Glucocorticoids (More than 3mos): no (Ex: prednisone, prednisolone, methylprednisolone, dexamethasone, and hydrocortisone). History of Fracture in Adulthood: no Secondary Osteoporosis: 1. Type 1 Diabetes: no 2. Hyperthyroidism: no 3. Menopause before 45: n/a 4. Malnutrition: no 5. Chronic liver disease: no Rheumatoid Arthritis: no Current Tobacco Use: no RISK FACTORS HISTORY OF: Surgery to Spine/Hip(right/left)/Wrist (right/left): yes When: 2014 Family History of Osteoporosis: no Active: no Diet low in dairy products/other sources of calcium: no Lost more than 2 inches in height since high school: no MEDICATIONS: insulin pump Additional History: EXAM MEASUREMENTS: Bone mineral densitometry was performed using the [employer] System. Bone mineral density about the R hip (g/cm2): 1.114 Bone mineral density about the L hip (g/cm2): 1.109 T Score values are as follows: -----R Neck: 0.6 -----L Neck: 0.5 -----R Total: 1.5 -----L Total: 1.4 Bone mineral density has: 0 % since study of: 01.13.2002 Bone mineral density about the L Wrist (g/cm2): 0.870 T Score values are as follows: -----Dist. R+U: 1.9 -----Prox. R+U: 2.0 -----Radius total: 1.7 Bone mineral density : baseline FRAX%s: The graph provided illustrates a 4.6% chance for a major osteoporotic fx and a 0.8% chance fo r the hips probability for fx in 10 years time. IMPRESSION: Normal (Values between +1 and -1 indicate normal bone mass). Consider repeating this study in 5 year s or sooner if there is some new clinical indication. NOTE: T-SCORE=SD OF THE YOUNG ADULT MEAN.
== END | disposition home or self-care (01) ==
LOC: RADBDWWP 08:37
DX: M81.0 Age-related osteoporosis without current pathological fracture (principal)
CPT/HCPCS: 77080

== ENCOUNTER 2021-10-25 06:09 | Day surgery (SDC) | payer MEDICARE, OTHER ==
[2021-10-24 09:08] VITALS: BMI 28.5
--- NOTE | 2021-10-24 13:19 | P.HPOR ---
History of Present Illness H&P Date: 10/24/21 Chief Complaint: Left thumb CMC arthritis Subjective: This is a 76 year old male that presents today for initial evaluation regarding a 1 year history of progressively worsening left base of the thumb pain. He states he has severe pain with any type of grasp, pinch or thumb movement. 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 He denies any numbness. He has had steroid injections in the past that provided little relief and also has tried topical anti-inflammatories. Physical Examination: LUE: AIN/PIN/Radial/Ulnar/Median motor intact. Radial/Ulnar/Median SILT. 2+/4 Radial/Ulnar pulses palpated. 5/5 APB, 5/5 FDI. Negative Finkelsteins, positive CMC grind, negative Durkan's compression. Imaging: X-Rays of the left hand demonstrate advanced degenerative changes with joint space narrowing and ostephyte formation at the thumb CMC joint. Impression: 1.) Left thumb CMC arthritis, severe. Plan: Diagnosis and treatment options were discussed with the patient. He has severe left thumb CMC OA that has failed conservative treatment and would like to go forward with surgical intervention with a left thumb CMC tendon transfer arthroplasty. Risks and benefit of surgery including bleeding, infection, damage to surrounding tissue, need for further surgery, residual numbness were discussed and the patient wished to go forward with surgery. 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 right knee torn meniscus. History of Any Multi-Drug Resistant Organisms: None Reported Past Surgical History: Back Surgery, Heart Catheterization, Orthopedic Surgery, Pacemaker Additional Past Surgical History / Comment(s): CERVICAL FUSION, PACEMAKER MEDTRONIC (OCTOBER 2014- DR DE LOS SANTOS)., right rotator cuff repair, cryo ablation right kidney tumor. , cataracts, TAVR aortic heart valve replacement. COLONOSCOPY Past Anesthesia/Blood Transfusion Reactions: No Reported Reaction Type of Cardiac Device: Permanent Pacemaker Device Placement Date:: october 2014 Smoking Status: Former smoker - Past Family History Father Family Medical History: Diabetes Mellitus, Renal Disease, Vascular Disorder Additional Family Medical History / Comment(s): Father at age 78 from renal failure with history of pneumonia and peripheral vascular disease. Mother Family Medical History: Hypertension, Musculoskeletal Disorder, Neurologic Disorder Additional Family Medical History / Comment(s): Mother at age 92 with history of Parkinson's, CVA, hypertension. History of pacemaker placement. Daughter(s) Additional Family Medical History / Comment(s): The patient has 2 daughters both with diabetes and one has lichen planus. Brother(s) Family Medical History: Cancer Additional Family Medical History / Comment(s): The patient has 2 brothers: One from lymphoma at age 82 and one at age 62 from pancreatic cancer. Patient does not have any sisters. Medications and Allergies Home Medications Medication Instructions Recorded Confirmed Type Aspirin 81 mg PO DAILY 02/23/19 10/24/21 History Empagliflozin [Jardiance] 25 mg PO DAILY 04/04/20 10/24/21 History Ferrous Sulfate [Feosol] 325 mg PO HS 04/04/20 10/24/21 History Finasteride [Proscar] 5 mg PO DAILY 04/04/20 10/24/21 History Losartan [Cozaar] 50 mg PO DAILY 04/04/20 10/24/21 History Multivit-Min/Folic/Vit K/Lycop 1 tab PO DAILY 04/04/20 10/24/21 History [Men's Multivitamin Tablet] Tamsulosin [Flomax] 0.4 mg PO HS 04/04/20 10/24/21 History Ascorbic Acid [Vitamin C] 1,000 mg PO DAILY 08/26/21 10/24/21 History Ergocalciferol [Vitamin D2 (1250 1,250 mcg PO TH 08/26/21 10/24/21 History Mcg = 50559 Iu)] Simvastatin [Zocor] 40 mg PO HS 08/26/21 10/24/21 History Insulin Aspart (For Pump) [NovoLOG 0.01 unit SQ-PUMP CONTINUOUS 10/24/21 10/24/21 History (For Pump)] Allergies Allergy/AdvReac Type Severity Reaction Status Date / Time cephalexin monohydrate Allergy Dyspnea, Verified 10/24/21 08:49 [From Keflex] RASH eye gtts ? altofer AdvReac Severe severe Uncoded 10/24/21 08:49 burning eyes 12 hrs. Physical Examination Osteopathic Statement: *. No significant issues noted on an osteopathic structural exam other than those noted in the History and Physical/Consult.
[~2021-10-25 06:09] MED LIST changes: -CLINDAMYCIN 600 MG in DEXTROSE 5% IN WATER 50 ML IVPB ONE; +CLINDAMYCIN 600 MG/50 ML-D5W 600 MG in DEXTROSE/WATER 1 50ML.BAG IVPB ONE; -DEXAMETHASONE SOD PHOSPHATE 10 MG/ML 1 ML VIAL IV ONE; +LIDOCAINE 1% (10MG/ML) FOR IV START INTRADERMA PRN
[2021-10-25] MEDS ORDERED: ONDANSETRON 4 MG/2 ML VIAL ONE (06:57)
[2021-10-25 07:14] LABS: Glucose,Whole Blood 123 mg/dL (75-99)
[2021-10-25] MEDS ORDERED: DEXAMETHASONE SOD PHOSPHATE 4 MG/ML 1 ML VIAL IVP ONE (07:15)
[2021-10-25] MEDS ORDERED: ONDANSETRON 4 MG/2 ML VIAL IVP ONE (07:15)
[2021-10-25] MEDS ORDERED: MIDAZOLAM 2 MG/2 ML VIAL IVP ONE (07:22)
[2021-10-25] MEDS ORDERED: LIDOCAINE 2% INJ 20 MG/ML (2 ML VIAL) ONE (07:29)
[2021-10-25] MEDS ORDERED: ePHEDrine 50 MG/ML 1 ML VIAL ONE (07:29)
[2021-10-25] MEDS ORDERED: PROPOFOL 10 MG/ML 20 ML VIAL IV ONE (07:29)
[2021-10-25] MEDS ORDERED: DEXAMETHASONE SOD PHOSPHATE 4 MG/ML 1 ML VIAL ONE (07:29)
[2021-10-25] MEDS ORDERED: PHENYLEPHRINE-0.9% NACL SYG 1,000 MCG/10 ML SYRINGE ONE (07:29)
[2021-10-25] MEDS ORDERED: ROPIVACAINE 5 MG/ML 30 ML VIAL ONE (07:29)
[2021-10-25] MEDS ORDERED: LACTATED RINGERS 1,000 ML IV ONE ×3 (07:33→08:21)
[2021-10-25 09:13] VITALS: TEMP 97
[2021-10-25 12:15] VITALS: BP 136/76; PULSE 84; RESP 16
--- NOTE | 2021-10-25 13:51 | P.ANPRN ---
Procedure Note - Anesthesia - Nerve Block Performed Left Supraclavicular Single Time Out Performed: Yes Date of Procedure: 10/25/21 Procedure Start Time: Procedure Stop Time: Location of Patient: PreOp Indication: Acute Post-Operative Pain, Requested by Surgeon Sedation Type: Sedate with meaningful contact maintained Preparation: Sterile Prep Position: Supine Needle Types: Pajunk Needle Gauge: 21 Ultrasound used to visualize needle placement: Yes Ultrasound used to observe medication spread: Yes Blood Aspirated: No Pain Paresthesia on Injection Noted: No Resistance on Injection: Normal Image Stored and Saved: Yes Events: Uneventful and Well Tolerated (ropi .5% 20cc plus dexamethasone 4mg)
--- NOTE | 2021-10-25 19:39 | P.OP ---
Date of Procedure: 10/25/21 Preoperative Diagnosis: Left thumb CMC joint arthritis Postoperative Diagnosis: Left thumb CMC joint arthritis Procedure(s) Performed: Left thumb CMC tendon transfer arthroplasty with trapezium resection Anesthesia: MIKE, regional Surgeon: uYri Galarza Director New Product #1: Randell Kimbrough Estimated Blood Loss (ml): 5 Pathology: none sent Condition: stable Disposition: PACU Description of Procedure: This is a 76 year old male with a history of severe left thumb CMC arthritis that has failed conservative treatment, he presents today for surgical intervention. Risks and benefits of surgery were discussed with the patient including bleeding, damage to surrounding tissue, infection, need for further surgery as well as risks of anesthesia including pulmonary embolism and even and the patient wished to proceed with surgical intervention. The patients was seen in the pre-operative area by myself. Consent and H&P were completed and updated. The correct extremity was marked in the pre-operative area by myself and all other questions were answered. Patient received a upper extremity nerve block by the department of anesthesia. He then was brought to the operating room by the department of anesthesia. They remained on the portable stretcher and a rolling hand table was brought to the side of the operative extremity. The patient was then drifted off to sleep by the department of anesthesia. A nonsterile tourniquet was then applied to the operative extremity and the left upper extremity was then prepped and draped in normal sterile fashion. Pre-operative time out was performed indicating the correct patient, procedure and laterality. All in the room agreed. Pre-operative antibiotics were given prior to skin incision. The operative extremity was the exsanguinated with an esmarch bandage and the tourniquet was inflated to 250mmHg. Longitudinal incision was made over the left thumb CMC joint with a 15 blade scalpel. Blunt dissection was taken down to subcutaneous tissues with littler scissors taking care to preserve the branches of the superficial radial nerve. Dorsal radial artery was identified proximally in the incision and protected throughout the procedure. Scalpel was then made to incise the thumb CMC joint creating full thickness flaps off of the proximal metacarpal base and trapezium, this plane was further developed with a periosteal elevator. Elevator was then utilized to identify the thumb CMC joint and scaphotrapezial joint. Rongeur was then used to excise the trapezium in a piecemeal fashion. After trapeziectomy was performed FCR tendon was identified at the floor of the bed where the trapezium previously was located and the dorsal base of the thumb metacarpal was drilled with a 2.0 drill bit followed by a 3.5 drill bit. Rongeur was used to make a small groove at the dorsal base of metacarpal. Attention was then drawn to the volar wrist. Incision was made over FCR tendon distally and proximally at the level of the musculotendinous junction. FCR sheath was then opened and widened with a small hemostat. 2-0 Ethibond was then used to watts the FCR tendon in half and the ulnar half of FCR tendon was harvested and sharply dissected by passing the 2-0 ethibond through the proximal incision and then sharply cutting the proximal portion of the tendon. The ulnar half of the FCR tendon was then passed through the FCR sheath and separation from the radial half of the tendon was carried all the way down it's insertion at the index metacarpal base. Loop was made with 2-0 suture through previously made drill holes and the FCR tendon was passed through the drill hole at the base of the first metacarpal and tensioned appropriately. 4-0 Ethibond was then used to suture the FCR tendon to itself in a figure of 8 fashion, this was repeated twice. 90 degree curved hemostat was then used to wrap the FCR tendon around itself and secured with multiple 4-0 ethibond figure of 8 stitches. The wound was then irrigated. Capsular closure was performed with 4-0 monocryl. Skin was closed with several interrupted 4-0 Monocryl sutures followed by a running 4-0 nylon stitch. Sterile dressing consisting of mastisol and steri strips followed by 4x4s cast padding, and a thumb spica plaster splint was applied. Tourniquet was let down and the hand had brisk cap refill and normal perfusion immediately. The patient was then woken by the department of anesthesia and transferred to PACU in stable condition. Randell CARRILLO was present for the case and assisted in major portions of procedure and protection of vital neurovascular structures. Yuri Galarza D.O. Orthopedic Hand/Upper Extremity Surgeon
== END 2021-10-25 12:11 | disposition home or self-care (01) ==
LOC: OR 06:09
PROVIDERS: ATTEND Orthopaedic Surgery Hand Surgery
DX: M18.12 Unilateral primary osteoarthritis of first carpometacarpal joint, left hand (principal); E11.9 Type 2 diabetes mellitus without complications; E78.5 Hyperlipidemia, unspecified; I10 Essential (primary) hypertension; L43.9 Lichen planus, unspecified; Z85.528 Personal history of other malignant neoplasm of kidney; Z98.1 Arthrodesis status; Z95.2 Presence of prosthetic heart valve; Z95.0 Presence of cardiac pacemaker; Z98.890 Other specified postprocedural states; Z87.891 Personal history of nicotine dependence; Z79.4 Long term (current) use of insulin; Z79.82 Long term (current) use of aspirin; Z79.899 Other long term (current) drug therapy; Z88.1 Allergy status to other antibiotic agents; Z98.42 Cataract extraction status, left eye; Z83.3 Family history of diabetes mellitus; Z84.1 Family history of disorders of kidney and ureter; Z82.0 Family history of epilepsy and other diseases of the nervous system; Z82.3 Family history of stroke; Z80.7 Family history of other malignant neoplasms of lymphoid, hematopoietic and related tissues; Z80.8 Family history of malignant neoplasm of other organs or systems
CPT/HCPCS: 25447; 25310; 64415; 76942; J2250; J1100; J2405; J2795; J2370; J2704; J2001

== ENCOUNTER 2022-02-14 07:19 | Day surgery (SDC) | payer MEDICARE ==
[2022-02-12 09:03] VITALS: BMI 28.5
--- NOTE | 2022-02-13 12:52 | P.HPOR ---
History of Present Illness H&P Date: 02/13/22 Chief Complaint: Left carpal tunnel syndrome Subjective: This is a 76 year old male that presents today for a post-operative visit after undergoing left thumb CMC basal joint arthroplasty on 10/25/21, he is 2.5 months out from surgery and has been doing well and has been working on ROM and strengthening and has been using the hand as tolerated. He also complains today of a longstanding history of right and left index and middle finger numbness localized to the wrist and below. He states years ago he had an EMG that revealed severe carpal tunnel syndrome. He has night symptoms that are worsening. Physical Examination: LUE: AIN/PIN/Radial/Ulnar/Median motor intact. Radial/Ulnar/Median SILT. 2+/4 Radial/Ulnar pulses palpated. Incisions well healed. Positive Durkan's compression. Able to oppose thumb to small finger, negative CMC grind. RUE: AIN/PIN/Radial/Ulnar/Median motor intact. Radial/Ulnar/Median SILT. 2+/4 Radial/Ulnar pulses palpated. Positive Durkan's Compression. 5/5 APB, 5/5 FDI. Impression: 1.) S/P Left thumb CMC tendon transfer arthroplasty for advanced left thumb CMC arthritis 2.) Right carpal tunnel syndrome 3.) Left carpal tunnel syndrome Plan: Diagnosis and treatment options and were discussed with the patient. He is doing well now just over 2 months out from thumb surgery and has minimal pain. Due to the constant and worsening numbness in the right and left hand he would like to pursue surgical intervention in the form of a left followed by a right endoscopic carpal tunnel release. Risks and benefits of surgery including bleeding, infection, damage to surrounding tissue, need for further surgery, possible need to convert to open procedure, residual numbness were discussed and the patient wished to go forward with surgery. 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 right knee torn meniscus. carpal tunnel both wrists History of Any Multi-Drug Resistant Organisms: None Reported Past Surgical History: Back Surgery, Heart Catheterization, Orthopedic Surgery, Pacemaker Additional Past Surgical History / Comment(s): CERVICAL FUSION, PACEMAKER MEDTRONIC (OCTOBER 2014- DR DE LOS SANTOS)., right rotator cuff repair, cryo ablation right kidney tumor. , cataracts, TAVR aortic heart valve replacement. lt thumb sx 10/25/21, COLONOSCOPY Past Anesthesia/Blood Transfusion Reactions: No Reported Reaction Type of Cardiac Device: Permanent Pacemaker Device Placement Date:: october 2014 Smoking Status: Former smoker - Past Family History Father Family Medical History: Diabetes Mellitus, Renal Disease, Vascular Disorder Additional Family Medical History / Comment(s): Father at age 78 from renal failure with history of pneumonia and peripheral vascular disease. Mother Family Medical History: Hypertension, Musculoskeletal Disorder, Neurologic Disorder Additional Family Medical History / Comment(s): Mother at age 92 with history of Parkinson's, CVA, hypertension. History of pacemaker placement. Daughter(s) Additional Family Medical History / Comment(s): The patient has 2 daughters both with diabetes and one has lichen planus. Brother(s) Family Medical History: Cancer Additional Family Medical History / Comment(s): The patient has 2 brothers: One from lymphoma at age 82 and one at age 62 from pancreatic cancer. Patient does not have any sisters. Medications and Allergies Home Medications Medication Instructions Recorded Confirmed Type Aspirin 81 mg PO DAILY 02/23/19 02/12/22 History Empagliflozin [Jardiance] 25 mg PO DAILY 04/04/20 02/12/22 History Finasteride [Proscar] 5 mg PO HS 04/04/20 02/12/22 History Losartan [Cozaar] 50 mg PO DAILY 04/04/20 02/12/22 History Multivit-Min/Folic/Vit K/Lycop 1 tab PO DAILY 04/04/20 02/12/22 History [Men's Multivitamin Tablet] Tamsulosin [Flomax] 0.4 mg PO BID 04/04/20 02/12/22 History Ascorbic Acid [Vitamin C] 1,000 mg PO DAILY 08/26/21 02/12/22 History Simvastatin [Zocor] 40 mg PO HS 08/26/21 02/12/22 History Insulin Aspart (For Pump) [NovoLOG 0.01 unit SQ-PUMP CONTINUOUS 10/24/21 02/12/22 History (For Pump)] Acetaminophen [Tylenol 8 Hour] 1,300 mg PO Q6H PRN 11/05/21 02/12/22 History Docusate [Colace] 200 mg PO DAILY PRN 11/05/21 02/12/22 History Cholecalciferol [Vitamin D3 (25 25 mcg PO DAILY 02/12/22 02/12/22 History Mcg = 1000 Iu)] Gabapentin [Neurontin] 200 mg PO HS 02/12/22 02/12/22 History Allergies Allergy/AdvReac Type Severity Reaction Status Date / Time cephalexin monohydrate Allergy Dyspnea, Verified 02/12/22 08:48 [From Keflex] RASH hydrocodone [From [place]] AdvReac SEVERE Verified 02/12/22 08:48 CONSTIPATION eye gtts ? altofer AdvReac Severe severe Uncoded 02/12/22 08:48 burning eyes 12 hrs. Physical Examination Osteopathic Statement: *. No significant issues noted on an osteopathic structural exam other than those noted in the History and Physical/Consult.
[~2022-02-14 07:19] MED LIST changes: -CLINDAMYCIN 600 MG/50 ML-D5W 600 MG in DEXTROSE/WATER 1 50ML.BAG IVPB ONE; +DEXAMETHASONE SOD PHOSPHATE 4 MG/ML 1 ML VIAL IV ONE; +HYDROmorphone 0.5 MG/0.5 ML SYRINGE IVP PRN; -LACTATED RINGERS 1,000 ML IV SCH; +MIDAZOLAM 2 MG/2 ML VIAL IV PRN; +ONDANSETRON 4 MG/2 ML VIAL IVP ONE; +Pre Op ABX Message 1 EACH MISC MISCELLANE ONE
[2022-02-14] MEDS ORDERED: BUPIVACAINE (PF) 0.5% 30 ML VIAL SQ ONE ×2 (08:14→08:33)
[2022-02-14] MEDS ORDERED: LIDOCAINE 1% INJ 10MG/ML (20 ML MDV) SQ ONE ×2 (08:15→08:33)
[2022-02-14 08:20] LABS: Glucose,Whole Blood 164 mg/dL (70-110)
[2022-02-14] MEDS: LACTATED RINGERS 1,000 ML IV SCH ×2 (08:20→08:28)
[2022-02-14] MEDS ORDERED: LIDOCAINE 2% INJ 20 MG/ML (2 ML VIAL) ONE (08:24)
[2022-02-14] MEDS ORDERED: PROPOFOL 10 MG/ML 20 ML VIAL IV ONE (08:24)
[2022-02-14] MEDS ORDERED: fentaNYL (PF) 50 MCG/ML 2 ML AMP ONE (08:24)
[2022-02-14] MEDS ORDERED: FAMOTIDINE 20 MG/2 ML VIAL IVP ONE (08:25)
[2022-02-14 08:33] VITALS: TEMP 97.8
--- NOTE | 2022-02-14 08:53 | P.OP ---
Date of Procedure: 02/14/22 Preoperative Diagnosis: Left carpal tunnel syndrome Postoperative Diagnosis: Left carpal tunnel syndrome Procedure(s) Performed: Left endoscopic carpal tunnel release Anesthesia: MAC Surgeon: Yuri Galarza Staff Scientist #1: Randell Kimbrough Estimated Blood Loss (ml): 0 Pathology: none sent Condition: stable Disposition: PACU Description of Procedure: This is a 76 year old male who presents today for a left endoscopic carpal tunnel release after having failed conservative treatment in the past. Risks and benefits of surgery were discussed with the patient including bleeding, damage to surrounding tissue, infection, need to convert to open procedure, need for further surgery as well as risks of anesthesia including pulmonary embolism and even and the patient wished to proceed with surgical intervention. The patients was seen in the pre-operative area by myself. Consent and H&P were completed and updated. The correct extremity was marked in the pre-operative area by myself and all other questions were answered. Operative Narrative: The patient was brought to the operating room by the department of anesthesia. They remained on the portable stretcher and a rolling hand table was brought to the side of the operative extremity. Pre-operative time out was performed indicating the correct patient, procedure and laterality. All in the room agreed. The patient was then drifted off to sleep by the department of anesthesia. MAC anesthesia was utilized and a 50:50 mixture of 1% Lidocaine and 0.5% bupivacaine was injected into the subcutaneous tissues of the palmar skin, 7ccs total. A nonsterile tourniquet was then applied to the operative extremity and the left upper extremity was then prepped and draped in normal sterile fashion. The operative extremity was the exsanguinated with an esmarch bandage and the tourniquet was inflated to 250mmHg. 15 blade scalpel was utilized to make a transverse incision on the palmar skin just ulnar to the palmaris longus tendon at the level of the distal wrist crease. Ragnell retractor was then placed radially and blunt dissection was performed to reveal the distal forearm fascia. This was lifted with fine Michael pick ups and Littler tenotomy scissors were then used to open the forearm fascia transversely and a double skin hook was then placed. Hamate finder was placed into the carpal tunnel and then sequential sized dilators were inserted followed by the synovial elevator to separate the flexor tenosynovium from the undersurface of the transverse carpal ligament and a washboard texture was felt. The Micro[employer]ire endoscopic carpal tunnel release system gun was the then inserted into the carpal tunnel hugging the deep portion of the transverse carpal ligament in line with the base of the ring finger. Transverse fibers of the ligament were directly visualized. Pressure was applied on the palm to reveal the distal extent of the transverse carpal ligament. The blade was then deployed and the distal half of the transverse carpal ligament was released. The scope was then brought distal again and remaining transverse fibers were incised with the blade. The proximal half of the transverse carpal ligament was then divided and again the scope was advanced distal and remaining transverse fibers were incised with the blade. The radial and ulnar leaflets were directly visualized and mobile consistent with complete release. Tenotomy scissors were then utiliz ed to release the remaining distal forearm fascia under direct visualization taking care to preserve the palmar cutaneous branch of the median nerve. Skin closure was performed with interrupted 4-0 Monocryl suture followed by Mastisol and steri strips. Sterile dressing was applied consisting of adaptic, 4x4s, Webril, and an claudia bandage. Tourniquet was let down and the hand immediately was well perfused. The patient was then woken by the department of anesthesia and transferred to PACU in stable condition. Randell CARRILLO was present for the case in its entirety and assisted in major portions of the case and protection of vital neurovascular structures. Yuri Galarza D.O. Orthopedic Hand/Upper Extremity Surgeon
[2022-02-14 09:01] LABS: Glucose,Whole Blood 150 mg/dL (70-110)
[2022-02-14 09:12] VITALS: BP 125/57; PULSE 68; RESP 15
== END 2022-02-14 09:52 | disposition home or self-care (01) ==
LOC: OR 07:19
PROVIDERS: ATTEND Orthopaedic Surgery Hand Surgery
DX: G56.02 Carpal tunnel syndrome, left upper limb (principal); E11.9 Type 2 diabetes mellitus without complications; H91.90 Unspecified hearing loss, unspecified ear; E78.5 Hyperlipidemia, unspecified; I10 Essential (primary) hypertension; M19.90 Unspecified osteoarthritis, unspecified site; L43.9 Lichen planus, unspecified; Z85.528 Personal history of other malignant neoplasm of kidney; Z87.19 Personal history of other diseases of the digestive system; Z98.49 Cataract extraction status, unspecified eye; Z95.0 Presence of cardiac pacemaker; Z98.1 Arthrodesis status; Z95.2 Presence of prosthetic heart valve; Z87.891 Personal history of nicotine dependence; Z83.3 Family history of diabetes mellitus; Z84.1 Family history of disorders of kidney and ureter; Z82.49 Family history of ischemic heart disease and other diseases of the circulatory system; Z79.84 Long term (current) use of oral hypoglycemic drugs; Z79.82 Long term (current) use of aspirin; Z79.4 Long term (current) use of insulin; Z79.899 Other long term (current) drug therapy; Z88.1 Allergy status to other antibiotic agents; Z88.5 Allergy status to narcotic agent; Z88.8 Allergy status to other drugs, medicaments and biological substances
CPT/HCPCS: 29848; J2405; J2001 ×2; J3010; J2704

== ENCOUNTER → 2022-10-10 | Outpatient (CLI) | payer MEDICARE, OTHER ==
--- NOTE | 2022-10-10 10:47 | US ---
EXAMINATION TYPE: US kidneys/renal and bladder DATE OF EXAM: 10/10/2022 COMPARISON: Renal ultrasound 09/06/2021, CT abdomen pelvis 03/08/2020. CLINICAL HISTORY: N18.31 CHRONIC KIDNEY DISEASE, STAGE 3A. CKD, known right lesion and cyst, left sto ne history of right renal cryoablation EXAM MEASUREMENTS: Right Kidney: 10.9 x 4.4 x 4.9 cm Left Kidney: 12.1 x 6.8 x 5.3 cm Right Kidney: anechoic lesion noted = 2.2 x 1.3 x 1.9cm, 2.5 x 2.0 x 2.3cm exophytic lesion, hypoecho ic, noted previously on US Left Kidney: tiny echogenic foci = 0.7cm Bladder: wnl Bilateral Jets seen: Yes There is no evidence for hydronephrosis at this point in time. Stable simple right renal cyst measuri ng up to 2 cm. Solid exophytic 2.5 cm right renal lesion without internal color flow redemonstrated a nd previous grossly stable. No lesions are measured with the left kidney. Nonobstructive left renal c alculus measuring up to 0.7 cm. No right renal calculi. The urinary bladder is anechoic. Bilateral u reteral jets are seen. IMPRESSION: 1. Similar previously treated solid mass involving the lower pole of the right kidney. Continued foll ow-up is recommended. 2. Stable right simple appearing cyst. 3. Nonobstructive left renal calculus.
== END | disposition home or self-care (01) ==
LOC: RADUSWWP 09:58
PROVIDERS: ATTEND Internal Medicine
DX: N18.31 Chronic kidney disease, stage 3a (principal); N20.0 Calculus of kidney; N28.89 Other specified disorders of kidney and ureter
CPT/HCPCS: 76770

== ENCOUNTER → 2022-10-25 | Outpatient (CLI) | payer OTHER ==
[2022-10-25 19:24] LABS: Basophils # (A) 0.07 X 10*3/uL (0.00-0.10); Basophils % (A) 1.5 %; Eosinophils # (A) 0.12 X 10*3/uL (0.04-0.35); Eosinophils % (A) 2.5 %; HGB 14.4 g/dL (13.0-17.0); Immature Grans, Automated 0.4 %; Lymphocytes # (A) 1.05 X 10*3/uL (0.90-5.00); Lymphocytes % (A) 22.2 %; MCH 30.1 pg (27.0-32.0); MCHC 30.6 g/dL (32.0-37.0); MCV 98.3 fL (80.0-97.0); Mean Platelet Volume 9.3 fL (9.5-12.2); Monocytes # (A) 0.56 X 10*3/uL (0.20-1.00); Monocytes % (A) 11.9 %; NRBC Per 100 WBC 0 /100 WBCS (0.0-0.0); Neutrophils % (A) 61.5 %; Platelet Count 178 X 10*3/uL (140-440); RBC 4.78 X 10*6/uL (4.40-5.60); RDW 14.4 % (11.5-14.5); WBC 4.72 X 10*3/uL (4.50-10.00)
[2022-10-25 20:28] LABS: Anion Gap 4.7 mmol/L (10.00-18.00); Carbon Dioxide 30.3 mmol/L (20.0-27.5); Potassium 5.2 mmol/L (3.5-5.5)
== END | disposition home or self-care (01) ==
LOC: LABWHC1 08:52
PROVIDERS: ATTEND Orthopaedic Surgery Hand Surgery
DX: Z01.812 Encounter for preprocedural laboratory examination (principal); G56.01 Carpal tunnel syndrome, right upper limb
CPT/HCPCS: 36415; 80051; 85025; 93005

== ENCOUNTER → 2022-10-25 | Outpatient (CLI) | payer OTHER | END | disposition home or self-care (01) | LOC: LABWHC1 08:54 | PROVIDERS: ATTEND Nurse Practitioner Family | DX: N40.1 Benign prostatic hyperplasia with lower urinary tract symptoms (principal) | CPT/HCPCS: 36415; 84153 ==

== ENCOUNTER 2023-11-28 21:36 | Emergency (ER) | payer OTHER, MEDICARE ==
[2023-11-28 22:36] VITALS: RESP 18
--- NOTE | 2023-11-28 22:52 | CT ---
EXAM: CT Head Without Intravenous Contrast CLINICAL HISTORY: ITS.REASON CT Reason: fall TECHNIQUE: Axial computed tomography images of the head/brain without intravenous contrast. CTDI is 45.2 mGy and DLP is 1042.5 mGy-cm. This CT exam was performed using one or more of the following dose reduction techniques: automated exposure control, adjustment of the mA and/or kV according to patient size, and/or use of iterative reconstruction technique. COMPARISON: No relevant prior studies available. FINDINGS: No acute intracranial hemorrhage. No midline shift or mass effect. The territorial giron-white matter differentiation is maintained throughout. Age-related cerebral volume loss. Periventricular and subcortical white matter hypoattenuation, consistent with chronic microangiopathy. The visualized orbits appear grossly unremarkable. The calvarium is intact. The visualized paranasal sinuses and mastoid air cells are grossly clear. IMPRESSION: No acute intracranial hemorrhage, midline shift, or mass effect. EXAM: CT Cervical Spine Without Intravenous Contrast CLINICAL HISTORY: ITS.REASON CT Reason: fall TECHNIQUE: Axial computed tomography images of the cervical spine without intravenous contrast. CTDI is 17.6 mGy and DLP is 461.3 mGy-cm. This CT exam was performed using one or more of the following dose reduction techniques: automated exposure control, adjustment of the mA and/or kV according to patient size, and/or use of iterative reconstruction technique. COMPARISON: No relevant prior studies available. FINDINGS: The vertebral body heights are maintained. The craniocervical junction is intact. The atlanto-dens interval is maintained. The dens is intact. There is no spondylolisthesis. Multilevel cervical spondylosis and degenerative disc disease. Straightening of the cervical lordosis. The unenhanced neck soft tissues are grossly unremarkable. The visualized lung apices are grossly clear. IMPRESSION: No acute fracture or subluxation of the cervical spine.
[2023-11-28] MEDS: HYDROcodone/APAP 7.5-325MG 1 EACH TAB PO ONE (23:37)
[2023-11-28] MEDS: MORPHINE SULFATE 4 MG/ML SYRINGE IM STA (23:38)
--- NOTE | 2023-11-28 23:44 | XR ---
EXAM: XR Left Hand Complete, 3 or More Views CLINICAL HISTORY: ITS.REASON XR Reason: fall TECHNIQUE: Frontal, lateral and oblique views of the left hand. COMPARISON: No relevant prior studies available. FINDINGS: Bones/joints: Fragmentation and collapse of the trapezium, correlate for partial trapezium resection. Correlate for surgical history in this location. Severe osteoarthritis of the first metacarpal base. No acute fracture or subluxation. Soft tissues: Unremarkable. No radiopaque foreign body. IMPRESSION: No acute fracture or subluxation.
--- NOTE | 2023-11-29 00:50 | ED ---
General Adult HPI - General Chief complaint: Extremity Injury, Upper Stated complaint: Fall Time Seen by Provider: 11/28/23 22:15 Source: patient Mode of arrival: ambulatory Limitations: no limitations - History of Present Illness Initial comments: 78-year-old male presenting with chief complaint of left hand pain. Patient was watering dunaway outside today when he had a fall from standing. This was around 1730. He admits to head injury. No loss of consciousness. No blood thinners. He fell onto his left hand. He has had increasing pain which pro mpted him to come to the ER. - Related Data Home Medications Medication Instructions Recorded Confirmed Aspirin 81 mg PO DAILY 02/23/19 10/31/22 Empagliflozin [Jardiance] 25 mg PO DAILY 04/04/20 10/26/22 Finasteride [Proscar] 5 mg PO HS 04/04/20 10/31/22 Losartan [Cozaar] 50 mg PO DAILY 04/04/20 10/26/22 Tamsulosin [Flomax] 0.4 mg PO BID 04/04/20 10/26/22 Simvastatin [Zocor] 40 mg PO HS 08/26/21 10/31/22 Insulin Aspart (For Pump) [NovoLOG 0.01 unit SQ-PUMP CONTINUOUS 10/24/21 10/26/22 (For Pump)] Docusate [Colace] 200 mg PO DAILY PRN 11/05/21 10/31/22 Acitretin [Soriatane] 10 mg PO BID 10/26/22 10/26/22 Allergies Allergy/AdvReac Type Severity Reaction Status Date / Time cephalexin monohydrate Allergy Dyspnea, Verified 11/28/23 21:44 [From Keflex] RASH benoxinate [From Altafluor] AdvReac severe Verified 11/28/23 21:44 burning in eyes 12 hrs. fluorescein [From Altafluor] AdvReac severe Verified 11/28/23 21:44 burning in eyes 12 hrs. hydrocodone [From [place]] AdvReac SEVERE Verified 11/28/23 21:44 CONSTIPATION Review of Systems ROS Statement: Those systems with pertinent positive or pertinent negative responses have been documented in the HPI. ROS Other: All systems not noted in ROS Statement are negative. 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 right knee torn meniscus. carpal tunnel both wrists History of Any Multi-Drug Resistant Organisms: None Reported Past Surgical History: Back Surgery, Heart Catheterization, Orthopedic Surgery, Pacemaker Additional Past Surgical History / Comment(s): CERVICAL FUSION, PACEMAKER MEDTRONIC (OCTOBER 2014- DR DE LOS SANTOS)., right rotator cuff repair, cryo ablation right kidney tumor. , cataracts, TAVR aortic heart valve replacement. lt thumb sx 10/25/21, COLONOSCOPY Past Anesthesia/Blood Transfusion Reactions: No Reported Reaction Type of Cardiac Device: Permanent Pacemaker Device Placement Date:: october 2014 Past Psychological History: No Psychological Hx Reported Smoking Status: Former smoker Past Alcohol Use History: None Reported Past Drug Use History: None Reported - Past Family History Father Family Medical History: Diabetes Mellitus, Renal Disease, Vascular Disorder Additional Family Medical History / Comment(s): Father at age 78 from renal failure with history of pneumonia and peripheral vascular disease. Mother Family Medical History: Hypertension, Musculoskeletal Disorder, Neurologic Disorder Additional Family Medical History / Comment(s): Mother at age 92 with history of Parkinson's, CVA, hypertension. History of pacemaker placement. Daughter(s) Additional Family Medical History / Comment(s): The patient has 2 daughters both with diabetes and one has lichen planus. Brother(s) Family Medical History: Cancer Additional Family Medical History / Comment(s): The patient has 2 brothers: One from lymphoma at age 82 and one at age 62 from pancreatic cancer. Patient does not have any sisters. General Exam Limitations: no limitations General appearance: alert, in no apparent distress Head exam: Present: atraumatic, normocephalic Eye exam: Present: normal appearance, PERRL, EOMI Neck exam: Present: normal inspection. Absent: meningismus Respiratory exam: Absent: respiratory distress Cardiovascular Exam: Present: regular rate Left Hand Wrist exam: Present: normal inspection, tenderness. Absent: full ROM, deformity Vascular: Absent: vascular compromise Neurological exam: Present: alert, oriented X3 Psychiatric exam: Present: normal affect, normal mood Skin exam: Present: normal color Course Vital Signs 11/28/23 11/28/23 11/29/23 21:38 23:22 01:06 Temperature 97.8 F 98.1 F Pulse Rate 76 71 78 Respiratory 18 18 18 Rate Blood Pressure 127/82 119/67 130/80 O2 Sat by Pulse 97 97 95 Oximetry Medical Decision Making - Medical Decision Making Was pt. sent in by a medical professional or institution (, PA, CARTON FILLING MACHINE OPERATOR, urgent care, hospital, or alf...) When possible be specific @ -No Did you speak to anyone other than the patient for history (EMS, parent, family, police, friend...)? What history was obtained from this source @ -No Did you review nursing and triage notes (agree or disagree)? Why? @ -I reviewed and agree with nursing and triage notes Were old charts reviewed (outside hosp., previous admission, EMS record, old EKG, old radiological studies, urgent care reports/EKG's, alf records)? Report findings @ -No old charts were reviewed Differential Diagnosis (chest pain, altered mental status, abdominal pain women, abdominal pain men, vaginal bleeding, weakness, fever, dyspnea, syncope, headache, dizziness, GI bleed, back pain, seizure, CVA, palpatations, mental health, musculoskeletal)? @ -Differential Musculoskeletal Muscular strain, contusion, ligament sprain, fracture, arthritis, septic arthritis, bursitis, cellulitis, muscle spasm, nerve compression, DVT, arterial occlusion, herpes zoster, electrolyte abnormality, tumor.... This is not meant to be in all inclusive list EKG interpreted by me (3pts min.). @ -As above X-rays interpreted by me (1pt min.). @ -Hand x-ray shows no acute fracture or subluxation CT interpreted by me (1pt min.). @ -CT shows no acute intracranial hemorrhage, midline shift, or mass effect. No acute fracture or subluxation of the cervical spine. U/S interpreted by me (1pt. min.). @ -None done What testing was considered but not performed or refused? (CT, X-rays, U/S, labs)? Why? @ -None What meds were considered but not given or refused? Why? @ -None Did you discuss the management of the patient with other professionals (professionals i.e. , PA, CARTON FILLING MACHINE OPERATOR, lab, RT, psych nurse, protective services social worker, compensation programs manager, teacher, workplace rehabilitation officer, correctional case manager)? Give summary @ -No Was smoking cessation discussed for >3mins.? @ -No Was critical care preformed (if so, how long)? @ -No Were there social determinants of health that impacted care today? How? (Homelessness, low income, unemployed, alcoholism, drug addiction, transportation, low edu. Level, literacy, decrease access to med. care, longterm, rehab)? @ -No Was there de-escalation of care discussed even if they declined (Discuss DNR or withdrawal of care, Hospice)? DNR status @ -No What co-morbidities impacted this encounter? (DM, HTN, Smoking, COPD, CAD, Cancer, CVA, ARF, Chemo, Hep., AIDS, mental health diagnosis, sleep apnea, morbid obesity)? @ -None Was patient admitted / discharged? Hospital course, mention meds given and route, prescriptions, significant lab abnormalities, going to OR and other pertinent info. @ -78-year-old male presenting with chief complaint of hand injury after a fall this evening. Head injury. No loss of consciousness or blood thinners. History and physical exam are conducted. CT of the brain and cervical spine is negative. X-ray of the hand shows no acute fracture or dislocation. Given the patient's degree of pain a thumb spica splint was placed. Instructed to follow- up with orthopedics. Discharged home. Follow-up with PCP. Report back to ER with any new or worsening symptoms. Discussed return parameters and answered all questions. Patient conveyed verbal understanding and agreed to the plan. I discussed this case in detail with my attending Dr. Dr. Kamara Undiagnosed new problem with uncertain prognosis? @ -No Drug Therapy requiring intensive monitoring for toxicity (Heparin, Nitro, Insulin, Cardizem)? @ -No Were any procedures done? @ -No Diagnosis/symptom? @ -Hand injury, head injury Acute, or Chronic, or Acute on Chronic? @ -Acute Uncomplicated (without systemic symptoms) or Complicated (systemic symptoms)? @ -Uncomplicated Side effects of treatment? @ -No Exacerbation, Progression, or Severe Exacerbation? @ -No Poses a threat to life or bodily function? How? (Chest pain, [place], [place], pneumonia, PE, COPD, DKA, ARF, appy, cholecystitis, CVA, Diverticulitis, Homicidal, Suicidal, threat to staff... and all critical care pts) @ -Low likelihood Disposition Clinical Impression: Fall, Hand pain, Tenderness of anatomical snuffbox Disposition: HOME SELF-CARE Condition: Good Instructions (If sedation given, give patient instructions): Hand Fracture (ED), Head Injury (ED) Additional Instructions: Follow-up with orthopedics and PCP. Report back to ER with any new or worsening symptoms. Is patient prescribed a controlled substance at d/c from ED?: No Referrals: Luke Crawley MD [Primary Care Provider] - 1-2 days Stuart Sky MD [STAFF PHYSICIAN] - 1-2 days Time of Disposition: 00:49
[2023-11-29] MEDS: HYDROmorphone 1 MG/ML 1 ML SYRINGE IM STA (00:58)
[2023-11-29 01:07] VITALS: BP 130/80; PULSE 78; TEMP 98.1
== END 2023-11-29 01:06 | disposition home or self-care (01) ==
LOC: EC 21:36
DX: S69.92XA Unspecified injury of left wrist, hand and finger(s), initial encounter (principal); S09.90XA Unspecified injury of head, initial encounter; Z87.891 Personal history of nicotine dependence; Z88.1 Allergy status to other antibiotic agents; Z88.5 Allergy status to narcotic agent; W18.30XA Fall on same level, unspecified, initial encounter; Y93.19 Activity, other involving water and watercraft
CPT/HCPCS: 96372 ×4; 99284 ×2; 29125 ×2; 73130; 72125; 70450; J2270; J1170

== ENCOUNTER → 2024-02-26 | Outpatient (CLI) | payer MEDICARE ==
--- NOTE | 2024-02-26 11:33 | US ---
EXAMINATION TYPE: US kidneys/renal and bladder DATE OF EXAM: 02/26/2024 COMPARISON: NONE CLINICAL INDICATION: Male, 78 years old with history of C64.9 RENAL CELL CANCER; History of renal kiara l carcinoma EXAM MEASUREMENTS: Right Kidney: 11.2 x 5.1 x 4.5 cm Left Kidney: 10.7 x 5.9 x 5.4 cm Right Kidney: anechoic lesion = 2.5 x 1.9 x 2.6cm. Exophytic hypoechoic lesion at the upper pole kory uring = 2.4 x 2.0 x 2.5 cm as seen on prior exams Left Kidney: Mild perinephric edema anterior to lower pole Blappears wnl rs wnl Bilateral Jetsnoeen: no Normal Post Void Resyesal: yes IMPRE ON: 1. Indeterminate 2.5 cm partially exophytic cortical lesion/mass of the right kidney was present on as well. The etiology is unclear. Consider further detailed assessment with renal mass gabe col CT or MRI and then comparison to the patient's older 03/08/2020 CT. 2. No hydronephrosis on either side.
== END | disposition home or self-care (01) ==
LOC: RADUSWWP 07:56
PROVIDERS: ATTEND Internal Medicine
DX: C64.9 Malignant neoplasm of unspecified kidney, except renal pelvis
CPT/HCPCS: 76770

== ENCOUNTER 2024-11-01 16:13 | Observation (INO) | payer OTHER, MEDICARE ==
[2024-11-01 16:25] LABS: Glucose,Whole Blood 147 mg/dL (70-110)
--- NOTE | 2024-11-01 17:27 | ED ---
General Adult HPI - General Chief complaint: Weakness Stated complaint: lethargic Time Seen by Provider: 11/01/24 16:25 Source: patient, RN notes reviewed, old records reviewed Mode of arrival: ambulatory Limitations: no limitations - History of Present Illness Initial comments: This is a 79-year-old male who presents to the emergency department and since October 09 he has been more and more lethargic and sleeping more more. Patient is alert and oriented according to family but he is extremely tired and unable to do much anymore. Patient prior to that was up and around and extremely active he just drove back from [place] and unpack the car and everything was fine. states he had no fever or chills he has not had any chest pain or problems breathing patient has had no abdominal pain he has not had any nausea vomiting diarrhea. He is just slowly gotten more more lethargic and weak. Patient is seeing his primary medical care doctor and a bevy of blood work was done none of which explain his current condition. Patient had a TAVR procedure done in 2018 he also had a pacemaker placed and according to the his last echo showed some leakage of the valve but nothing more than at baseline - Related Data Home Medications Medication Instructions Recorded Confirmed Aspirin 81 mg PO DAILY 02/23/19 10/31/22 Empagliflozin [Jardiance] 25 mg PO DAILY 04/04/20 10/26/22 Finasteride [Proscar] 5 mg PO HS 04/04/20 10/31/22 Losartan [Cozaar] 50 mg PO DAILY 04/04/20 10/26/22 Tamsulosin [Flomax] 0.4 mg PO BID 04/04/20 10/26/22 Simvastatin [Zocor] 40 mg PO HS 08/26/21 10/31/22 Insulin Aspart (For Pump) [NovoLOG 0.01 unit SQ-PUMP CONTINUOUS 10/24/21 10/26/22 (For Pump)] Docusate [Colace] 200 mg PO DAILY PRN 11/05/21 10/31/22 Acitretin [Soriatane] 10 mg PO BID 10/26/22 10/26/22 Allergies Allergy/AdvReac Type Severity Reaction Status Date / Time cephalexin monohydrate Allergy Dyspnea, Verified 11/01/24 16:24 [From Keflex] RASH benoxinate [From Altafluor] AdvReac severe Verified 11/01/24 16:24 burning in eyes 12 hrs. fluorescein [From Altafluor] AdvReac severe Verified 11/01/24 16:24 burning in eyes 12 hrs. hydrocodone [From [place]] AdvReac SEVERE Verified 11/01/24 16:24 CONSTIPATION Review of Systems ROS Statement: Those systems with pertinent positive or pertinent negative responses have been documented in the HPI. ROS Other: All systems not noted in ROS Statement are negative. 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 right knee torn meniscus. carpal tunnel both wrists History of Any Multi-Drug Resistant Organisms: None Reported Past Surgical History: Back Surgery, Cardiac Valve Replacement, Heart Catheterization, Orthopedic Surgery, Pacemaker Additional Past Surgical History / Comment(s): CERVICAL FUSION, PACEMAKER MEDTRONIC (OCTOBER 2014- DR DE LOS SANTOS)., right rotator cuff repair, cryo ablation right kidney tumor. , cataracts, TAVR aortic heart valve replacement. lt thumb sx 10/25/21, COLONOSCOPY Past Anesthesia/Blood Transfusion Reactions: No Reported Reaction Type of Cardiac Device: Permanent Pacemaker Device Placement Date:: october 2014 Past Psychological History: No Psychological Hx Reported Smoking Status: Former smoker Past Alcohol Use History: None Reported Past Drug Use History: None Reported - Past Family History Father Family Medical History: Diabetes Mellitus, Renal Disease, Vascular Disorder Additional Family Medical History / Comment(s): Father at age 78 from renal failure with history of pneumonia and peripheral vascular disease. Mother Family Medical History: Hypertension, Musculoskeletal Disorder, Neurologic Disorder Additional Family Medical History / Comment(s): Mother at age 92 with history of Parkinson's, CVA, hypertension. History of pacemaker placement. Daughter(s) Additional Family Medical History / Comment(s): The patient has 2 daughters both with diabetes and one has lichen planus. Brother(s) Family Medical History: Cancer Additional Family Medical History / Comment(s): The patient has 2 brothers: One from lymphoma at age 82 and one at age 62 from pancreatic cancer. Patient does not have any sisters. General Exam - General Exam Comments Initial Comments: GENERAL: Patient is well-developed and well-nourished. Patient is nontoxic and well- hydrated and is in no acute distress. Extremely tired as soon as he stops talking goes right to sleep and he slept through most of the conversation I had with the and the daughter ENT: Neck is soft and supple. No significant lymphadenopathy is noted. Oropharynx is clear. Moist mucous membranes. Neck has full range of motion without eliciting any pain. EYES: The sclera were anicteric and conjunctiva were pink and moist. Extraocular movements were intact and pupils were equal round and reactive to light. Eyelids were unremarkable. PULMONARY: Unlabored respirations. Good breath sounds bilaterally. No audible rales rhonchi or wheezing was noted. CARDIOVASCULAR: There is a regular rate and rhythm without any murmurs gallops or rubs. ABDOMEN: Soft and nontender with normal bowel sounds. SKIN: Skin is clear with no lesions or rashes and otherwise unremarkable. NEUROLOGIC: Patient is alert and oriented x3. Cranial nerves II through XII are grossly intact. Motor and sensory are also intact. Normal speech, volume and content. Symmetrical smile. MUSCULOSKELETAL: Normal extremities with adequate strength and full range of motion. No lower extremity swelling or edema. No calf tenderness. LYMPHATICS: No significant lymphadenopathy is noted PSYCHIATRIC: Normal psychiatric evaluation. Limitations: no limitations Course Vital Signs 11/01/24 11/01/24 16:21 19:43 Temperature 97.8 F Pulse Rate 62 60 Respiratory 22 16 Rate Blood Pressure 152/57 117/63 O2 Sat by Pulse 93 L 99 Oximetry Medical Decision Making - Medical Decision Making EKG is interpreted by myself. EKG shows a paced rhythm at 52 bpm QRS is 165 QT interval is 439 QTc is 418 Was pt. sent in by a medical professional or institution (, PA, MANAGER APPOINTMENT, urgent care, hospital, or snf...) When possible be specific @ -No Did you speak to anyone other than the patient for history (EMS, parent, family, police, friend...)? What history was obtained from this source @ -No Did you review nursing and triage notes (agree or disagree)? Why? @ -I reviewed and agree with nursing and triage notes Were old charts reviewed (outside hosp., previous admission, EMS record, old EKG, old radiological studies, urgent care reports/EKG's, snf records)? Report findings @ -No old charts were reviewed Differential Diagnosis? @ -Differential Weakness: Hypoglycemia, shock, sepsis, hyponatremia, anemia, infection, NC, ETOH, adverse medicine reaction, overdose, stroke, this is not meant to be an all-inclusive list. EKG interpreted by me (3pts min.). @ -As above X-rays interpreted by me (1pt min.). @ -Chest x-ray shows no acute abnormality CT interpreted by me (1pt min.). @ -CT of the brain shows no acute dramality U/S interpreted by me (1pt. min.). @ -None done What testing was considered but not performed or refused? (CT, X-rays, U/S, labs)? Why? @ -None What meds were considered but not given or refused? Why? @ -None Did you discuss the management of the patient with other professionals (professionals i.e. , PA, MANAGER APPOINTMENT, lab, RT, psych nurse, social service director, earring maker, teacher, workplace rehabilitation officer, caser up)? Give summary @ -I spoke with [facility] hospitalist and they agreed admit the patient. Was smoking cessation discussed for >3mins.? @ -No Was critical care preformed (if so, how long)? @ -No Were there social determinants of health that impacted care today? How? (Homelessness, low income, unemployed, alcoholism, drug addiction, transportation, low edu. Level, literacy, decrease access to med. care, custodial, rehab)? @ -No Was there de-escalation of care discussed even if they declined (Discuss DNR or withdrawal of care, Hospice)? DNR status @ -No What co-morbidities impacted this encounter? (DM, HTN, Smoking, COPD, CAD, Cancer, CVA, ARF, Chemo, Hep., AIDS, mental health diagnosis, sleep apnea, morbid obesity)? @ -None Was patient admitted / discharged? Hospital course, mention meds given and route, prescriptions, significant lab abnormalities, going to OR and other pertinent info. @ -Lab work and CAT scan and chest x-ray showed nothing that would indicate why the patient be so lethargic sleepy and weak. I decided to admit the patient to [facility] hospice consult Dr. Mejía who knows him and Dr. Iverson the neurologist. I went back in the room multiple times and the patient was sleeping the whole time while in the emergency department. Patient was easily arousable but will go right back to sleep. Patient never had any apneic episodes while was in the room. Undiagnosed new problem with uncertain prognosis? @ -No Drug Therapy requiring intensive monitoring for toxicity (Heparin, Nitro, Insulin, Cardizem)? @ -No Were any procedures done? @ -No Diagnosis/symptom? @ -Severe lethargy Acute, or Chronic, or Acute on Chronic? @ -Acute Uncomplicated (without systemic symptoms) or Complicated (systemic symptoms)? @ -Comp Side effects of treatment? @ -No Exacerbation, Progression, or Severe Exacerbation? @ -No Poses a threat to life or bodily function? How? (Chest pain, USA, NC, pneumonia, PE, COPD, DKA, ARF, appy, cholecystitis, CVA, Diverticulitis, Homicidal, S uicidal, threat to staff... and all critical care pts) @ -Yes patient is unable to assist getting around and has the potential to fall and hurt himself - Lab Data Result diagrams: 11/01/24 17:33 11/01/24 17:33 Lab Results 11/01/24 11/01/24 11/01/24 Range/Units 16:24 17:33 17:33 WBC 4.80 (4.50-10.00) 10*3/uL RBC 4.23 L (4.40-5.60) 10*6/uL Hgb 13.0 (13.0-17.0) g/dL Hct 39.5 L (39.6-50.0) % MCV 93.4 (80.0-97.0) fL MCH 30.7 (27.0-32.0) pg MCHC 32.9 (32.0-37.0) g/dL Plt Count 170 (140-440) 10*3/uL MPV 9.2 L (9.5-12.2) fL Immature Gran % (Auto) 0.4 % Neutrophils % 61.6 % Lymphocytes % 24.2 % Monocytes % 11.0 % Eosinophils % 1.5 % Basophils % 1.3 % Immature Gran # 0.02 (0.00-0.04) 10*3/uL Neutrophils # 2.96 (1.80-7.70) 10*3/uL Lymphocytes # 1.16 (0.90-5.00) 10*3/uL Monocytes # 0.53 (0.20-1.00) 10*3/uL Eosinophils # 0.07 (0.04-0.35) 10*3/uL Basophils # 0.06 (0.00-0.10) 10*3/uL PT 11.3 (10.0-12.5) sec INR 1.0 (<1.2) APTT 23.0 (22.0-30.0) sec VBG pH (7.31-7.41) VBG pCO2 (37-51) mmHg VBG HCO3 (24-28) mmol/L Sodium (137-145) mmol/L Potassium (3.5-5.1) mmol/L Chloride (98-107) mmol/L Carbon Dioxide (22-30) mmol/L Anion Gap mmol/L BUN (9-20) mg/dL Creatinine (0.66-1.25) mg/dL Est GFR (CKD-EPI)AfAm (>60 ml/min/1.73 sqM) Est GFR (CKD-EPI)NonAf (>60 ml/min/1.73 sqM) Glucose (74-99) mg/dL POC Glucose (mg/dL) 147 H (70-110) mg/dL POC Glu Delinquent Tax Collector ID Robb Wang Calcium (8.4-10.2) mg/dL Total Bilirubin (0.2-1.3) mg/dL AST (17-59) U/L ALT (4-49) U/L Alkaline Phosphatase (38-126) U/L Ammonia (<30) umol/L Troponin I (0.000-0.034) ng/mL Total Protein (6.3-8.2) g/dL Albumin (3.5-5.0) g/dL Urine Color Urine Appearance (Clear) Urine pH (5.0-8.0) Ur Specific [place] (1.001-1.035) Urine Protein (Negative) Urine Glucose (UA) (Negative) Urine Ketones (Negative) Urine Blood (Negative) Urine Nitrite (Negative) Urine Bilirubin (Negative) Urine Urobilinogen (<2.0) mg/dL Ur Leukocyte Esterase (Negative) 11/01/24 11/01/24 11/01/24 Range/Units 17:33 17:33 17:33 WBC (4.50-10.00) 10*3/uL RBC (4.40-5.60) 10*6/uL Hgb (13.0-17.0) g/dL Hct (39.6-50.0) % MCV (80.0-97.0) fL MCH (27.0-32.0) pg MCHC (32.0-37.0) g/dL Plt Count (140-440) 10*3/uL MPV (9.5-12.2) fL Immature Gran % (Auto) % Neutrophils % % Lymphocytes % % Monocytes % % Eosinophils % % Basophils % % Immature Gran # (0.00-0.04) 10*3/uL Neutrophils # (1.80-7.70) 10*3/uL Lymphocytes # (0.90-5.00) 10*3/uL Monocytes # (0.20-1.00) 10*3/uL Eosinophils # (0.04-0.35) 10*3/uL Basophils # (0.00-0.10) 10*3/uL PT (10.0-12.5) sec INR (<1.2) APTT (22.0-30.0) sec VBG pH 7.38 (7.31-7.41) VBG pCO2 53 H (37-51) mmHg VBG HCO3 31 H (24-28) mmol/L Sodium 140 (137-145) mmol/L Potassium 4.9 (3.5-5.1) mmol/L Chloride 104 (98-107) mmol/L Carbon Dioxide 32 H (22-30) mmol/L Anion Gap 4 mmol/L BUN 36 H (9-20) mg/dL Creatinine 1.13 (0.66-1.25) mg/dL Est GFR (CKD-EPI)AfAm 70 (>60 ml/min/1.73 sqM) Est GFR (CKD-EPI)NonAf 61 (>60 ml/min/1.73 sqM) Glucose 140 H (74-99) mg/dL POC Glucose (mg/dL) (70-110) mg/dL POC Glu Delinquent Tax Collector ID Calcium 9.2 (8.4-10.2) mg/dL Total Bilirubin 0.5 (0.2-1.3) mg/dL AST 51 (17-59) U/L ALT 52 H (4-49) U/L Alkaline Phosphatase 58 (38-126) U/L Ammonia (<30) umol/L Troponin I 0.014 (0.000-0.034) ng/mL Total Protein 6.4 (6.3-8.2) g/dL Albumin 3.7 (3.5-5.0) g/dL Urine Color Urine Appearance (Clear) Urine pH (5.0-8.0) Ur Specific [place] (1.001-1.035) Urine Protein (Negative) Urine Glucose (UA) (Negative) Urine Ketones (Negative) Urine Blood (Negative) Urine Nitrite (Negative) Urine Bilirubin (Negative) Urine Urobilinogen (<2.0) mg/dL Ur Leukocyte Esterase (Negative) 11/01/24 11/01/24 11/01/24 Range/Units 17:39 19:30 19:47 WBC (4.50-10.00) 10*3/uL RBC (4.40-5.60) 10*6/uL Hgb (13.0-17.0) g/dL Hct (39.6-50.0) % MCV (80.0-97.0) fL MCH (27.0-32.0) pg MCHC (32.0-37.0) g/dL Plt Count (140-440) 10*3/uL MPV (9.5-12.2) fL Immature Gran % (Auto) % Neutrophils % % Lymphocytes % % Monocytes % % Eosinophils % % Basophils % % Immature Gran # (0.00-0.04) 10*3/uL Neutrophils # (1.80-7.70) 10*3/uL Lymphocytes # (0.90-5.00) 10*3/uL Monocytes # (0.20-1.00) 10*3/uL Eosinophils # (0.04-0.35) 10*3/uL Basophils # (0.00-0.10) 10*3/uL PT (10.0-12.5) sec INR (<1.2) APTT (22.0-30.0) sec VBG pH (7.31-7.41) VBG pCO2 (37-51) mmHg VBG HCO3 (24-28) mmol/L Sodium (137-145) mmol/L Potassium (3.5-5.1) mmol/L Chloride (98-107) mmol/L Carbon Dioxide (22-30) mmol/L Anion Gap mmol/L BUN (9-20) mg/dL Creatinine (0.66-1.25) mg/dL Est GFR (CKD-EPI)AfAm (>60 ml/min/1.73 sqM) Est GFR (CKD-EPI)NonAf (>60 ml/min/1.73 sqM) Glucose (74-99) mg/dL POC Glucose (mg/dL) 114 H (70-110) mg/dL POC Glu Delinquent Tax Collector EVONNE Castellano Calcium (8.4-10.2) mg/dL Total Bilirubin (0.2-1.3) mg/dL AST (17-59) U/L ALT (4-49) U/L Alkaline Phosphatase (38-126) U/L Ammonia 16 (<30) umol/L Troponin I (0.000-0.034) ng/mL Total Protein (6.3-8.2) g/dL Albumin (3.5-5.0) g/dL Urine Color Colorless Urine Appearance Clear (Clear) Urine pH 5.5 (5.0-8.0) Ur Specific [place] 1.018 (1.001-1.035) Urine Protein Trace H (Negative) Urine Glucose (UA) 4+ H (Negative) Urine Ketones Negative (Negative) Urine Blood Negative (Negative) Urine Nitrite Negative (Negative) Urine Bilirubin Negative (Negative) Urine Urobilinogen <2.0 (<2.0) mg/dL Ur Leukocyte Esterase Negative (Negative) Disposition Clinical Impression: Lethargy, Weakness Disposition: ADMITTED IP TO THIS HOSP Referrals: Jeanette Rivera MD [Primary Care Provider] - 1-2 days Time of Disposition: 19:56
[2024-11-01 17:43] LABS: Basophils # (A) 0.06 10*3/uL (0.00-0.10); Basophils % (A) 1.3 %; Eosinophils # (A) 0.07 10*3/uL (0.04-0.35); Eosinophils % (A) 1.5 %; HCT 39.5 % (39.6-50.0); Lymphocytes # (A) 1.16 10*3/uL (0.90-5.00); Lymphocytes % (A) 24.2 %; MCH 30.7 pg (27.0-32.0); MCHC 32.9 g/dL (32.0-37.0); MCV 93.4 fL (80.0-97.0); Mean Platelet Volume 9.2 fL (9.5-12.2); Monocytes # (A) 0.53 10*3/uL (0.20-1.00); Neutrophils # (A) 2.96 10*3/uL (1.80-7.70); Neutrophils % (A) 61.6 %; Platelet Count 170 10*3/uL (140-440); RBC 4.23 10*6/uL (4.40-5.60); RDW 13.8 % (11.5-14.5); VBG PH 7.38 (7.31-7.41)
[2024-11-01 18:07] LABS: ALT 52 U/L (4-49); AST 51 U/L (17-59); African American GFR (CKD) 70 (>60 ml/min/1.73 sqM); Albumin 3.7 g/dL (3.5-5.0); Alkaline Phosphatase 58 U/L (38-126); Anion Gap 4 mmol/L; Blood Urea Nitrogen 36 mg/dL (9-20); Calcium 9.2 mg/dL (8.4-10.2); Carbon Dioxide 32 mmol/L (22-30); Chloride 104 mmol/L (98-107); Glucose 140 mg/dL (74-99); Non-African American GFR(CKD) 61 (>60 ml/min/1.73 sqM); Potassium 4.9 mmol/L (3.5-5.1); Sodium 140 mmol/L (137-145); Total Bilirubin 0.5 mg/dL (0.2-1.3); Total Protein 6.4 g/dL (6.3-8.2)
[2024-11-01 18:10] LABS: Prothrombin Time 11.3 sec (10.0-12.5)
[2024-11-01] MEDS: SODIUM CHLORIDE 0.9% 500 ML 500 ML IV ONE (18:36)
--- NOTE | 2024-11-01 19:01 | XR ---
The EXAMINATION TYPE: XR chest 2V DATE OF EXAM: 11/01/2024 6:55 PM COMPARISON: 08/26/2021 CLINICAL INDICATION: Male, 79 years old with history of altered mental status: Shortness of breath TECHNIQUE: XR chest 2V views of the chest are obtained. FINDINGS: Scattered senescent parenchymal changes noted. Hyperinflation compatible with COPD. No evidence for infiltrate. No evidence for atelectasis. Heart size is stable. Mediastinal structures are stable and grossly unremarkable. No evidence for hilar prominence. Degenerative changes dorsal spine. IMPRESSION: 1. No evidence for acute pulmonary disease. [facility], , 11/01/2024 6:59 PM
--- NOTE | 2024-11-01 19:25 | CT ---
EXAMINATION TYPE: CT brain wo con DATE OF EXAM: 11/01/2024 COMPARISON: 11/28/2023 CLINICAL INDICATION: Male, 79 years old with history of Altered mental status; PHH, Pt having increas e weakness and BRANDON for over 1 month. Worse last 2 days. TECHNIQUE: CT scan of the head is performed without contrast. CT DLP: 1195.[address] CTDI: mGy Automated exposure control for dose reduction was used. FINDINGS: There is no acute intracranial hemorrhage or midline shift identified. There is diffuse v entricular and sulcal prominence consistent with diffuse age-related cerebral atrophy. There is low- attenuation in the periventricular white matter consistent with chronic small vessel ischemic change. The globes are intact and the visualized sinuses are clear. IMPRESSION: No acute intracranial hemorrhage or midline shift. There is diffuse age-related cerebra l atrophy and chronic small vessel ischemic change noted. [facility], , 11/01/2024 7:23 PM
[2024-11-01 19:40] LABS: Appearance,Urine Clear (Clear); Bilirubin,Urine Negative (Negative); Blood,Urine Negative (Negative); Color,Urine Colorless; Glucose,Urine (UA) 4+ (Negative); Ketones,Urine Negative (Negative); Leukocyte Esterase,Urine Negative (Negative); Nitrite,Urine Negative (Negative); PH, Urine 5.5 (5.0-8.0); Protein,Urine Trace (Negative); Specific Gravity,Urine 1.018 (1.001-1.035); Urobilinogen,Urine <2.0 mg/dL (<2.0)
[2024-11-01 19:58] LABS: Glucose,Whole Blood 114 mg/dL (70-110)
[2024-11-01 20:05] LABS: Amphetamine Screen,Urine Not Detected (NotDetected); Barbiturate Screen,Urine Not Detected (NotDetected); Benzodiazepines Screen,Urine Not Detected (NotDetected); Cocaine Screen,Urine Not Detected (NotDetected); Methadone Screen, Urine Not Detected (NotDetected); Opiate Screen,Urine Not Detected (NotDetected); Oxycodone Screen, Urine Not Detected (NotDetected); Phencyclidine Screen,Urine Not Detected (NotDetected); Tricyclic Antidepressant,Urine Not Detected (NotDetected); Urn Cannabinoid Scrn Not Detected (NotDetected)
[2024-11-01] MEDS: SODIUM CHLORIDE 0.9% 1,000 ML IV ONE (23:56)
--- NOTE | 2024-11-02 06:24 | P.CNPUL ---
History of Present Illness Consult date: 11/02/24 Requesting physician: Jai Hnederson Reason for consult: obstructive sleep apnea Chief complaint: Lethargy History of present illness: Patient is an 79-year-old male with past medical history significant for moderate obstructive sleep apnea with an apnea hypopnea index of 18.5. His last polysomnography was in 2020. Previously intolerant to using a CPAP, and he was given an oral appliance. He has seen Dr. Mejía in the pulmonary office in the past, but has not followed up in some time. Reportedly, scheduled appointment in December in regards to his UNIQUE. He also has past medical history of hypertension, hyperlipidemia, diabetes mellitus, permanent pacemaker, previous TAVR, renal cell carcinoma, BPH. Presented to the emergency department for evaluation yesterday afternoon with a chief complaint of increasing lethargy and hypersomnia. Workup in the emergency department including a brain CT which did not show any acute intracranial hemorrhage or midline shift. Diffuse age- related cerebral atrophy and chronic small vessel ischemic changes noted. Chest x-ray did not show any acute cardiopulmonary process. Labs from yesterday including a CBC with a WBC count 4.8, hemoglobin 13, platelets 170. CMP: Sodium 140, potassium 4.9, chloride 104, serum bicarb 32, BUN 36, creatinine 1.13, glucose 140. VBG with a PCO2 of 53 and pH of 7.38. Troponin 0.014. EKG: V paced at 52 bpm. Urinalysis not concerning for UTI. normal saline infusing at 50 mL/h. Urine toxicology screen unremarkable. Patient currently being evaluated on the 6th floor. Initially, sleeping when I entered the room, awakens and responds appropriately to questioning. Currently on 2 L/min nasal cannula. He has his oral appliance in. His primary complaint is increasing lethargy and hypersomnia at home. He has been using his oral appliance every night. Sleeping more than 12 hours per night with naps throughout the day. Despite this, awakes exhausted. He is falling asleep at inappropriate times, such as at the dinner table. Denies use of caffeine, alcohol, nicotine prior to bedtime. States he wakes up every 2 hours throughout the night to urinate. Does take Flomax and Proscar on an outpatient basis. Denies shortness of breath, chest pain, heart palpitations, syncopal events, PND, lower extremity edema. His last appointment with his [facility] was last week. He sleeps in a reclining chair at home. Denies any recent weight gain. This is a relatively new complaint since returning home from [place] approximately 1 month ago. States that his thought he might have "long-haul COVID". Reportedly, did have COVID infection June 27 prior to going to [place], did initially recover without any complication. Current vital signs: Temperature 97.5 F, heart rate 72 bpm, blood pressure 137/66 mmHg, nontachypneic, SpO2 recorded at 97% on 2 L/min nasal cannula. Review of Systems REVIEW OF SYSTEMS: CONSTITUTIONAL: Denies any recent significant weight loss or weight gain. EYES: Denies change in vision. EARS, NOSE, MOUTH, THROAT: Denies headaches, denies sore throat. CARDIOVASCULAR: Denies chest pain, palpitations or syncopal episodes. RESPIRATORY: Denies shortness of breath, cough, sputum production, congestion or hemoptysis. GASTROINTESTINAL: Denies change in appetite, abdominal pain, nausea and vomiting, or diarrhea GENITOURINARY: Denies hematuria, denies infections. MUSKULOSKELETAL: Denies pain, denies swelling. INTEGUMENTARY: Denies rash, denies eczema. NEUROLOGICAL: Denies recent memory loss, no recent seizure activity. PSYCHIATRIC: Denies anxiety, denies depression. 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 right knee torn meniscus. carpal tunnel left wrists History of Any Multi-Drug Resistant Organisms: None Reported Past Surgical History: Back Surgery, Cardiac Valve Replacement, Heart Catheterization, Orthopedic Surgery, Pacemaker Additional Past Surgical History / Comment(s): CERVICAL FUSION, PACEMAKER MEDTR ONIC (OCTOBER 2014- DR DE LOS SANTOS)., right rotator cuff repair, cryo ablation right kidney tumor. , cataracts, TAVR aortic heart valve replacement. lt thumb sx 10/25/21, COLONOSCOPY Past Anesthesia/Blood Transfusion Reactions: No Reported Reaction Type of Cardiac Device: Permanent Pacemaker Device Placement Date:: october 2014 Past Psychological History: No Psychological Hx Reported Additional Psychological History / Comment(s): . Smoking Status: Former smoker Past Alcohol Use History: None Reported Additional Past Alcohol Use History / Comment(s): QUIT SMOKING AUG 2018, SMOKED 1PPD, SMOKED 50 YRS. Past Drug Use History: None Reported - Past Family History Father Family Medical History: Diabetes Mellitus, Renal Disease, Vascular Disorder Additional Family Medical History / Comment(s): Father at age 78 from renal failure with history of pneumonia and peripheral vascular disease. Mother Family Medical History: Hypertension, Musculoskeletal Disorder, Neurologic Disorder Additional Family Medical History / Comment(s): Mother at age 92 with history of Parkinson's, CVA, hypertension. History of pacemaker placement. Daughter(s) Additional Family Medical History / Comment(s): The patient has 2 daughters both with diabetes and one has lichen planus. Brother(s) Family Medical History: Cancer Additional Family Medical History / Comment(s): The patient has 2 brothers: One from lymphoma at age 82 and one at age 62 from pancreatic cancer. Patient does not have any sisters. Medications and Allergies Home Medications Medication Instructions Recorded Confirmed Type Aspirin 81 mg PO DAILY 02/23/19 10/31/22 History Empagliflozin [Jardiance] 10 mg PO DAILY 04/04/20 10/26/22 History Finasteride [Proscar] 5 mg PO HS 04/04/20 10/31/22 History Losartan [Cozaar] 50 mg PO DAILY 04/04/20 10/26/22 History Tamsulosin [Flomax] 0.4 mg PO BID 04/04/20 10/26/22 History Insulin Aspart (For Pump) [NovoLOG 0.01 unit SQ-PUMP CONTINUOUS 10/24/21 10/26/22 History (For Pump)] Dupilumab [Dupixent Pen] 11/01/24 History Ferrous Sulfate [Feosol] See Rx Instructions .ROUTE .COMPLEX 11/01/24 11/01/24 History Rosuvastatin [Crestor] PO DAILY 11/01/24 History Allergies Allergy/AdvReac Type Severity Reaction Status Date / Time cephalexin monohydrate Allergy Dyspnea, Verified 11/01/24 16:24 [From Keflex] RASH benoxinate [From Altafluor] AdvReac severe Verified 11/01/24 16:24 burning in eyes 12 hrs. fluorescein [From Altafluor] AdvReac severe Verified 11/01/24 16:24 burning in eyes 12 hrs. hydrocodone [From [place]] AdvReac SEVERE Verified 11/01/24 16:24 CONSTIPATION Physical Exam Vitals: Vital Signs Temp Pulse Pulse Resp BP BP Pulse Ox 11/02/24 02:00 97.5 F L 72 17 137/66 96 11/01/24 21:00 97.5 F L 72 17 148/72 97 11/01/24 20:51 97.7 F 61 18 127/66 98 11/01/24 19:43 60 16 117/63 99 11/01/24 16:21 97.8 F 62 22 152/57 93 L Intake and Output 11/01/24 11/01/24 11/02/24 14:59 22:59 06:59 Output Total 150 Balance -150 Output: Urine 150 Other: Voiding Method Urinal Weight 93.44 kg GENERAL EXAM: Alert, 79-year-old male, comfortable in no apparent distress. HEAD: Normocephalic and atraumatic EYES: Normal reaction of pupils, equal size. NOSE: Clear with pink turbinates. THROAT: No erythema or exudates. NECK: No masses, no JVD. CHEST: No chest wall deformity. LUNGS: Equal air entry with no crackles, wheeze, rhonchi or dullness. On 2 L/min nasal cannula. No conversational dyspnea or accessory muscle use.. CVS: S1 and S2 normal with no audible murmur, regular rhythm. No extra heart sounds ABDOMEN: No hepatosplenomegaly, active bowel sounds, no guarding or rigidity. SPINE: No scoliosis or deformity SKIN: No rashes CENTRAL NERVOUS SYSTEM: No focal deficits, tone is normal in all 4 extremities. EXTREMITIES: There is no peripheral edema, clubbing, or cyanosis. Peripheral pulses are intact. Results - Laboratory Findings CBC and BMP: 11/01/24 17:33 11/01/24 17:33 PT/INR, D-dimer PT 11.3 sec (10.0-12.5) 11/01/24 17: INR 1.0 (<1.2) 11/01/24 17:33 Abnormal lab findings: Abnormal Labs 11/01/24 11/01/24 11/01/24 16:24 17:33 17:33 RBC 4.23 L Hct 39.5 L MPV 9.2 L VBG pCO2 VBG HCO3 Carbon Dioxide 32 H BUN 36 H Glucose 140 H POC Glucose (mg/dL) 147 H ALT 52 H Urine Protein Urine Glucose (UA) 11/01/24 11/01/24 11/01/24 17:33 19:30 19:47 RBC Hct MPV VBG pCO2 53 H VBG HCO3 31 H Carbon Dioxide BUN Glucose POC Glucose (mg/dL) 114 H ALT Urine Protein Trace H Urine Glucose (UA) 4+ H - Diagnostic Findings Chest x-ray: image reviewed Assessment and Plan Assessment: Hypersomnia Moderate obstructive sleep apnea, with an AHI 18.5, fitted with oral appliance BPH and nocturia, maintained on Flomax and Proscar Hypertension History of hyperlipidemia Diabetes mellitus History of permanent pacemaker History of transcatheter aortic valve replacement Plan: No obvious acute pulmonary process He is compliant with his oral appliance May need follow-up sleep study Keep outpatient appointment with Dr. Mejía Case to be reviewed with Dr. Iverson I have personally seen and examined the patient, performed the documentation and the assessment and plan as written. Number of minutes spent on the visit:20 Time with Patient: Greater than 30
[2024-11-02 06:29] LABS: Glucose,Whole Blood 150 mg/dL (70-110)
[2024-11-02] MEDS: TAMSULOSIN 0.4 MG CAP.ER.24H PO SCH (08:22)
[2024-11-02 09:54] LABS: Glucose,Whole Blood 261 mg/dL (70-110)
[2024-11-02] MEDS ORDERED: DEXTROSE 50% SYRINGE 50 ML IVP PRN ×2 (10:01)
[2024-11-02 11:57] LABS: Glucose,Whole Blood 315 mg/dL (70-110)
[2024-11-02] MEDS: LOSARTAN 50 MG TAB PO SCH (12:03)
[2024-11-02] MEDS: ASPIRIN 81 MG PO SCH (12:03)
[2024-11-02] MEDS: INSULIN LISPRO (HumaLOG) 100 UNIT/ML 10 mL VL SQ SCH (12:04)
--- NOTE | 2024-11-02 12:16 | P.CNNES ---
History of Present Illness Consult date: 11/02/24 Requesting physician: Jai Henderson Reason for Consult: weakness, lethargy History of Present Illness: This is an 79-year-old gentleman presents to the emergency department because of lethargy and sleeping more. Some of the history is obtained from medical records. According to the patient he has been sleeping more than usual for the last 3 weeks. He denies any history of seizure. Denies any jerking of any extremities. He states that he was in [place] from July till August and came back to [place] on October 05, 2024. He denies any history of seizure. Denies any history of stroke. Denies any focal weakness. Denies any speech difficulty or difficulty swallowing. Denies any nausea vomiting. He states he has underlying history of diabetes and he is on insulin, hypertension, he has a history of TAVR, pacemaker, kidney cancer status post ablation. Per the ED notes his stated that the patient does not have any fever or chills or any breathing problems. Seems that since October 09 the patient has been more lethargic and sleeping more. Prior to that he was extremely active. Seems that the patient has moderate obstructive sleep apnea. Some of the workup during this hospital visit consisted of: Patient is afebrile and the white blood cell is within normal limits. Ammonia level is 16 CT of the head is reported as no acute intracranial hemorrhage or midline shift. There is diffuse age-related cerebral atrophy and chronic small vessel ischemic change noted. Personally reviewed the CT of the head and I agree with report. Review of Systems As per HPI. 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 right knee torn meniscus. carpal tunnel left wrists History of Any Multi-Drug Resistant Organisms: None Reported Past Surgical History: Back Surgery, Cardiac Valve Replacement, Heart Catheterization, Orthopedic Surgery, Pacemaker Additional Past Surgical History / Comment(s): CERVICAL FUSION, PACEMAKER KARTHIK VELAZQUEZ (OCTOBER 2014- DR DE LOS SANTOS)., right rotator cuff repair, cryo ablation right kidney tumor. , cataracts, TAVR aortic heart valve replacement. lt thumb sx 10/25/21, COLONOSCOPY Past Anesthesia/Blood Transfusion Reactions: No Reported Reaction Type of Cardiac Device: Permanent Pacemaker Device Placement Date:: october 2014 Past Psychological History: No Psychological Hx Reported Additional Psychological History / Comment(s): . Smoking Status: Former smoker Past Alcohol Use History: None Reported Additional Past Alcohol Use History / Comment(s): QUIT SMOKING AUG 2018, SMOKED 1PPD, SMOKED 50 YRS. Past Drug Use History: None Reported - Past Family History Father Family Medical History: Diabetes Mellitus, Renal Disease, Vascular Disorder Additional Family Medical History / Comment(s): Father at age 78 from renal failure with history of pneumonia and peripheral vascular disease. Mother Family Medical History: Hypertension, Musculoskeletal Disorder, Neurologic Disorder Additional Family Medical History / Comment(s): Mother at age 92 with history of Parkinson's, CVA, hypertension. History of pacemaker placement. Daughter(s) Additional Family Medical History / Comment(s): The patient has 2 daughters both with diabetes and one has lichen planus. Brother(s) Family Medical History: Cancer Additional Family Medical History / Comment(s): The patient has 2 brothers: One from lymphoma at age 82 and one at age 62 from pancreatic cancer. Patient does not have any sisters. Medications and Allergies Home Medications Medication Instructions Recorded Confirmed Type Aspirin 81 mg PO DAILY 02/23/19 11/02/24 History Empagliflozin [Jardiance] 10 mg PO DAILY 04/04/20 11/02/24 History Losartan [Cozaar] 50 mg PO DAILY 04/04/20 11/02/24 History Tamsulosin [Flomax] 0.4 mg PO BID 04/04/20 11/02/24 History Insulin Aspart (For Pump) [NovoLOG 0.01 unit SQ-PUMP CONTINUOUS 10/24/21 11/02/24 History (For Pump)] Dupilumab [Dupixent Pen] 300 mg SQ Q14D 11/01/24 11/02/24 History Ferrous Sulfate [Feosol] 325 mg PO Q2D 11/01/24 11/02/24 History Rosuvastatin [Crestor] 10 mg PO DAILY 11/01/24 11/02/24 History Ascorbic Acid [Vitamin C] 500 mg PO DAILY 11/02/24 11/02/24 History Co Q-10 (Unknown Dose) 1 dose PO DAILY 11/02/24 11/02/24 History Escitalopram [Lexapro] 5 mg PO DAILY 11/02/24 11/02/24 History Glucagon Emergency Kit 1 mg SQ ONCE PRN 11/02/24 11/02/24 History Zinc Gluconate [Zinc] 50 mg PO DAILY 11/02/24 11/02/24 History Allergies Allergy/AdvReac Type Severity Reaction Status Date / Time cephalexin monohydrate Allergy Dyspnea, Verified 11/02/24 11:19 [From Keflex] RASH Sulfa (Sulfonamide Allergy Per [facility] Verified 11/02/24 11:19 Antibiotics) benoxinate [From Altafluor] AdvReac severe Verified 11/02/24 11:19 burning in eyes 12 hrs. fluorescein [From Altafluor] AdvReac severe Verified 11/02/24 11:19 burning in eyes 12 hrs. hydrocodone [From [place]] AdvReac SEVERE Verified 11/02/24 11:19 CONSTIPATION Physical Examination - Vital Signs Vital Signs: Vital Signs Temp Pulse Pulse Pulse Resp BP BP 11/02/24 11:10 98.5 F 69 18 11/02/24 07:00 97.6 F 62 18 11/02/24 02:00 97.5 F L 72 17 137/66 11/01/24 21:00 97.5 F L 72 17 148/72 11/01/24 20:51 97.7 F 61 18 127/66 11/01/24 19:43 60 16 117/63 11/01/24 16:21 97.8 F 62 22 152/57 BP Pulse Ox 11/02/24 11:10 138/52 93 L 11/02/24 07:00 139/64 97 11/02/24 02:00 96 11/01/24 21:00 97 11/01/24 20:51 98 11/01/24 19:43 99 11/01/24 16:21 93 L Intake and Output 11/01/24 11/02/24 11/02/24 22:59 06:59 14:59 Intake Total 118 Output Total 150 Balance -150 118 Intake: Oral 118 Output: Urine 150 Other: Voiding Method Urinal # Voids 2 Weight 93.44 kg GENERAL: The patient is lying in bed and is not in acute distress. NEUROLOGICAL: Higher mental function: The patient is moderately drowsy but is awakeable to voice, oriented to self, place and time. Patient is following commands. No aphasia and no neglect. Cranial nerves: The pupils are round, equal and reactive to light and accommodation. Visual duncan are full to confrontation throughout. Extraocular movement is intact no nystagmus is noted. Facial sensation is normal to touch throughout. The facial strength is normal throughout. Tongue is midline and moved [id number] without any difficulty. No dysarthria is noted. Shoulder shrug is normal bilaterally. Motor: The strength is limited but is lifting all extremities above gravity symmetrically Normal tone and bulk. Cerebellum: Normal finger to nose bilaterally. Sensation: Sensation is normal to touch throughout. Reflexes (right/left): 2+ Plantars are downgoing bilaterally. Results - Laboratory Findings CBC and BMP: 11/01/24 17:33 11/01/24 17:33 Abnormal Lab Findings: Abnormal Labs 11/01/24 11/01/24 11/01/24 16:24 17:33 17:33 RBC 4.23 L Hct 39.5 L MPV 9.2 L VBG pCO2 VBG HCO3 Carbon Dioxide 32 H BUN 36 H Glucose 140 H POC Glucose (mg/dL) 147 H ALT 52 H Urine Protein Urine Glucose (UA) 11/01/24 11/01/24 11/01/24 17:33 19:30 19:47 RBC Hct MPV VBG pCO2 53 H VBG HCO3 31 H Carbon Dioxide BUN Glucose POC Glucose (mg/dL) 114 H ALT Urine Protein Trace H Urine Glucose (UA) 4+ H 11/02/24 11/02/24 11/02/24 06:28 09:53 11:56 RBC Hct MPV VBG pCO2 VBG HCO3 Carbon Dioxide BUN Glucose POC Glucose (mg/dL) 150 H 261 H 315 H ALT Urine Protein Urine Glucose (UA) Assessment and Plan Assessment: This is an 79-year-old gentleman who presents emergency department because of lethargy, and was he just sleeping and cannot stay awake over the last 3 weeks. Lethargy and lack of staying awake: Unsure exact etiology. There is no focal deficit on examination. CT of the head is unremarkable for any acute or subacute stroke. Diabetes mellitus and patient is on insulin Hypertension History of TAVR Pacemaker History of kidney cancer status post ablation Plan: Primary team ordered TSH and vitamin B12. I ordered acetylcholine receptor antibody and musk antibody takes about a week and a half for the result to come back and recommend his outpatient primary care to follow-up with the result. Obtain an EEG but unlikely this is seizure Agree with Pulmonary team of obtaining sleep study Cannot Obtain MRI since the patient has a pacemaker but patient had a CT of the head and there is no focal deficit and the CT of the head was negative for any acute or subacute stroke. Will defer the rest of the medical management to primary other specialist Thank you for the consultation. Time with Patient: Greater than 30
[2024-11-02] MEDS ORDERED: INSULIN GLARGINE (LANTUS) 100 UNIT/ML SYR SQ SCH (12:30)
[2024-11-02] MEDS: INSULIN GLARGINE (LANTUS) 100 UNIT/ML SYR SQ SCH (12:52)
[2024-11-02 17:50] LABS: Glucose,Whole Blood 261 mg/dL (70-110)
[2024-11-02] MEDS: HEPARIN SODIUM,PORCINE 5,000 UNIT/ML 1 ML VIAL SQ SCH (18:12)
[2024-11-02 20:10] LABS: Glucose,Whole Blood 227 mg/dL (70-110)
[2024-11-02] MEDS: FINASTERIDE 5 MG TAB PO SCH (21:17)
--- NOTE | 2024-11-02 21:43 | P.HPIM ---
History of Present Illness H&P Date: 11/02/24 Chief Complaint: Lethargic and sleepiness Patient is a 79-year-old male with a known history of hypertension, diabetes type 2 on insulin pump at home, osteoarthritis, hyperlipidemia, hearing disorder/deafness and history of TAVR and obstructive sleep apnea. Patient also has history of pulm and pacemaker placement and prior history of smoking and renal cell carcinoma. Was brought to the hospital due to increased lethargy and hypersomnia. Patient has been sleeping more than 12 hours and also having naps throughout the day. Despite this he feels exhausted. Has been falling asleep at the dinner table as well. Otherwise denied any chest pain or shortness of breath. No fever no chills. No nausea vomiting abdominal pain or diarrhea. Patient also having frequent urination at night. Denied any PND or orthopnea. Patient had COVID-19 infection June 27 prior to going to [place] and his thought he might have long-haul COVID. On admission EKG showed electronic ventricular paced rhythm Chest x-ray showed no evidence for acute pulmonary disease. CT head showed no acute intracranial hemorrhage or midline shift. There is diffuse age-related cerebral atrophy and chronic small vessel ischemic changes noted. Laboratory data showed WBC 4.8 hemoglobin 13.0 and platelets 170 VBG showed pH 7.38 [id number] and bicarb 31 Sodium 140 potassium 4.9 chloride 104 bicarb is 32 BUN 36 and creatinine 1.13 and blood sugar 140 troponin 0.014 and B12 and TSH levels within normal limits. Urinalysis showed 4+ glucose otherwise negative for infection. UDS negative. Review of Systems Constitutional: Patient denies any fever or chills . Generalized weakness and lethargic. Abdomen: Patient denied nausea vomiting and diarrhea and abdominal pain. Cardiovascular: Patient denies any chest pain or short of breath no palpitations. Respiratory: patient denied any cough or sputum production. No shortness of breath Neurologic: Patient denied any numbness or tingling. no headache. Musculoskeletal: Patient denies any complaints of joint swelling or deformity. Skin: Negative Psychiatric: Negative Endocrine: No heat or cold intolerance. No recent weight gain. Genitourinary: No dysuria or hematuria. 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 right knee torn meniscus. carpal tunnel left wrists History of Any Multi-Drug Resistant Organisms: None Reported Past Surgical History: Back Surgery, Cardiac Valve Replacement, Heart Catheterization, Orthopedic Surgery, Pacemaker Additional Past Surgical History / Comment(s): CERVICAL FUSION, PACEMAKER MEDTRONIC (OCTOBER 2014- DR DE LOS SANTOS)., right rotator cuff repair, cryo ablation right kidney tumor. , cataracts, TAVR aortic heart valve replacement. lt thumb sx 10/25/21, COLONOSCOPY Past Anesthesia/Blood Transfusion Reactions: No Reported Reaction Type of Cardiac Device: Permanent Pacemaker Device Placement Date:: october 2014 Past Psychological History: No Psychological Hx Reported Additional Psychological History / Comment(s): . Smoking Status: Former smoker Past Alcohol Use History: None Reported Additional Past Alcohol Use History / Comment(s): QUIT SMOKING AUG 2018, SMOKED 1PPD, SMOKED 50 YRS. Past Drug Use History: None Reported - Past Family History Father Family Medical History: Diabetes Mellitus, Renal Disease, Vascular Disorder Additional Family Medical History / Comment(s): Father at age 78 from renal failure with history of pneumonia and peripheral vascular disease. Mother Family Medical History: Hypertension, Musculoskeletal Disorder, Neurologic Disorder Additional Family Medical History / Comment(s): Mother at age 92 with history of Parkinson's, CVA, hypertension. History of pacemaker placement. Daughter(s) Additional Family Medical History / Comment(s): The patient has 2 daughters both with diabetes and one has lichen planus. Brother(s) Family Medical History: Cancer Additional Family Medical History / Comment(s): The patient has 2 brothers: One from lymphoma at age 82 and one at age 62 from pancreatic cancer. Patient does not have any sisters. Medications and Allergies Home Medications Medication Instructions Recorded Confirmed Type Aspirin 81 mg PO DAILY 02/23/19 11/02/24 History Empagliflozin [Jardiance] 10 mg PO DAILY 04/04/20 11/02/24 History Losartan [Cozaar] 50 mg PO DAILY 04/04/20 11/02/24 History Tamsulosin [Flomax] 0.4 mg PO BID 04/04/20 11/02/24 History Insulin Aspart (For Pump) [NovoLOG 0.01 unit SQ-PUMP CONTINUOUS 10/24/21 11/02/24 History (For Pump)] Dupilumab [Dupixent Pen] 300 mg SQ Q14D 11/01/24 11/02/24 History Ferrous Sulfate [Feosol] 325 mg PO Q2D 11/01/24 11/02/24 History Rosuvastatin [Crestor] 10 mg PO DAILY 11/01/24 11/02/24 History Ascorbic Acid [Vitamin C] 500 mg PO DAILY 11/02/24 11/02/24 History Co Q-10 (Unknown Dose) 1 dose PO DAILY 11/02/24 11/02/24 History Escitalopram [Lexapro] 5 mg PO DAILY 11/02/24 11/02/24 History Glucagon Emergency Kit 1 mg SQ ONCE PRN 11/02/24 11/02/24 History Zinc Gluconate [Zinc] 50 mg PO DAILY 11/02/24 11/02/24 History Allergies Allergy/AdvReac Type Severity Reaction Status Date / Time cephalexin monohydrate Allergy Dyspnea, Verified 11/02/24 11:19 [From Keflex] RASH Sulfa (Sulfonamide Allergy Per [facility] Verified 11/02/24 11:19 Antibiotics) benoxinate [From Altafluor] AdvReac severe Verified 11/02/24 11:19 burning in eyes 12 hrs. fluorescein [From Altafluor] AdvReac severe Verified 11/02/24 11:19 burning in eyes 12 hrs. hydrocodone [From [place]] AdvReac SEVERE Verified 11/02/24 11:19 CONSTIPATION Physical Exam Vitals: Vital Signs Temp Pulse Pulse Pulse Resp BP BP 11/02/24 11:10 98.5 F 69 18 11/02/24 07:00 97.6 F 62 18 11/02/24 02:00 97.5 F L 72 17 137/66 11/01/24 21:00 97.5 F L 72 17 148/72 11/01/24 20:51 97.7 F 61 18 127/66 11/01/24 19:43 60 16 117/63 11/01/24 16:21 97.8 F 62 22 152/57 BP Pulse Ox 11/02/24 11:10 138/52 93 L 11/02/24 07:00 139/64 97 11/02/24 02:00 96 11/01/24 21:00 97 11/01/24 20:51 98 11/01/24 19:43 99 11/01/24 16:21 93 L Intake and Output 11/01/24 11/02/24 11/02/24 22:59 06:59 14:59 Intake Total 118 Output Total 150 Balance -150 118 Intake: Oral 118 Output: Urine 150 Other: Voiding Method Urinal # Voids 2 Weight 93.44 kg PHYSICAL EXAMINATION: Patient is lying in the bed comfortably, no acute distress, awake alert and oriented.. HEENT: Normocephalic. Neck is supple. Pupils reactive. Nostrils clear. Oral cavity is moist. Neck reveals no JVD, carotid bruits, or thyromegaly. CHEST EXAMINATION: Trachea is central. Symmetrical expansion. Lung duncan clear to auscultation and percussion. CARDIAC: Normal S1, S2 with no gallops. No murmurs ABDOMEN: Soft. Bowel sounds normal. No organomegaly. No abdominal bruits. Extremities: reveal no edema. No clubbing or cyanosis Neurologically awake, alert, oriented x3 with well-coordinated movements. No focal deficits noted Skin: No rash or skin lesions. Psychiatric: Coperative. Nonsuicidal Musculoskeletal: No joint swelling or deformity. Normal range of motion. Results CBC & Chem 7: 11/01/24 17:33 11/01/24 17:33 Labs: Abnormal Lab Results - Last 24 Hours (Table) 11/01/24 11/01/24 11/01/24 Range/Units 16:24 17:33 17:33 RBC 4.23 L (4.40-5.60) 10*6/uL Hct 39.5 L (39.6-50.0) % MPV 9.2 L (9.5-12.2) fL VBG pCO2 (37-51) mmHg VBG HCO3 (24-28) mmol/L Carbon Dioxide 32 H (22-30) mmol/L BUN 36 H (9-20) mg/dL Glucose 140 H (74-99) mg/dL POC Glucose (mg/dL) 147 H (70-110) mg/dL ALT 52 H (4-49) U/L Urine Protein (Negative) Urine Glucose (UA) (Negative) 11/01/24 11/01/24 11/01/24 Range/Units 17:33 19:30 19:47 RBC (4.40-5.60) 10*6/uL Hct (39.6-50.0) % MPV (9.5-12.2) fL VBG pCO2 53 H (37-51) mmHg VBG HCO3 31 H (24-28) mmol/L Carbon Dioxide (22-30) mmol/L BUN (9-20) mg/dL Glucose (74-99) mg/dL POC Glucose (mg/dL) 114 H (70-110) mg/dL ALT (4-49) U/L Urine Protein Trace H (Negative) Urine Glucose (UA) 4+ H (Negative) 11/02/24 11/02/24 Range/Units 06:28 09:53 RBC (4.40-5.60) 10*6/uL Hct (39.6-50.0) % MPV (9.5-12.2) fL VBG pCO2 (37-51) mmHg VBG HCO3 (24-28) mmol/L Carbon Dioxide (22-30) mmol/L BUN (9-20) mg/dL Glucose (74-99) mg/dL POC Glucose (mg/dL) 150 H 261 H (70-110) mg/dL ALT (4-49) U/L Urine Protein (Negative) Urine Glucose (UA) (Negative) Thrombosis Risk Factor Assmnt - DVT/VTE Prophylaxis DVT/VTE Prophylaxis: Pharmacologic Prophylaxis ordered Assessment and Plan Assessment: Hypersomnia lethargic and sleepiness with frequent naps Moderate obstructive sleep apnea with AHI of 18.5. Patient is on CPAP at home Diabetes type 2 on insulin pump at home BPH and nocturia. Patient is on Flomax and Proscar at home Hyperlipidemia History of permanent pacemaker placement History of TAVR Hearing disorder/deafness History of smoking Renal cell carcinoma history of dissection DVT prophylaxis with heparin subcu Plan: Patient will be continued on gentle IV hydration. Started back on insulin regimen. Patient was not able to manage his insulin pump at admission. Current with Proscar and Flomax. Pulmonary and neurology is on board. EEG was ordered. Follow-up TSH B12 and A1c levels. Time with Patient: Greater than 30
[2024-11-02 21:48] VITALS: RESP 17
[2024-11-03 05:45] LABS: Glucose,Whole Blood 150 mg/dL (70-110)
[2024-11-03 08:15] VITALS: BP 125/65; TEMP 98.1
[2024-11-03] MEDS: INSULIN LISPRO (HumaLOG) 100 UNIT/ML 10 mL VL SQ ONE (08:29)
[2024-11-03] MEDS: ESCITALOPRAM 5 MG TAB PO SCH (08:30)
[2024-11-03] MEDS: ATORVASTATIN 20 MG TAB PO SCH (08:30)
[2024-11-03 08:34] LABS: Blood Urea Nitrogen 29.4 mg/dL (9.0-27.0); Calcium 8.4 mg/dL (8.7-10.3); Carbon Dioxide 26.3 mmol/L (21.6-31.8); Chloride 105 mmol/L (96-109); Glucose 148 mg/dL (70-110); Potassium 4.6 mmol/L (3.5-5.5); Sodium 141 mmol/L (135-145)
[2024-11-03 08:44] LABS: Basophils # (A) 0.08 X 10*3/uL (0.00-0.10); Basophils % (A) 1.3 %; Eosinophils # (A) 0.12 X 10*3/uL (0.04-0.35); Lymphocytes # (A) 1.34 X 10*3/uL (0.90-5.00); Lymphocytes % (A) 21.8 %; MCH 29.5 pg (27.0-32.0); MCHC 30.8 g/dL (32.0-37.0); MCV 95.8 FL (80.0-97.0); Mean Platelet Volume 9.2 FL (9.5-12.2); Monocytes # (A) 0.66 X 10*3/uL (0.20-1.00); Monocytes % (A) 10.7 %; NRBC Per 100 WBC 0 X 10*3/uL (0.00-0.01); Neutrophils # (A) 3.92 X 10*3/uL (1.80-7.70); Neutrophils % (A) 63.9 %; Platelet Count 155 X 10*3/uL (140-440); RBC 4.07 X 10*6/uL (4.40-5.60); RDW 13.6 % (11.5-14.5); WBC 6.14 X 10*3/uL (4.50-10.00)
--- NOTE | 2024-11-03 12:13 | P.PN ---
Subjective Progress Note Date: 11/03/24 Patient is an 79-year-old male with past medical history significant for moderate obstructive sleep apnea with an apnea hypopnea index of 18.5. His last polysomnography was in 2020. Previously intolerant to using a CPAP, and he was given an oral appliance. He has seen Dr. Mejía in the pulmonary office in the past, but has not followed up in some time. Reportedly, scheduled appointment in December in regards to his UNIQUE. He also has past medical history of hypertension, hyperlipidemia, diabetes mellitus, permanent pacemaker, previous TAVR, renal cell carcinoma, BPH. Presented to the emergency department for evaluation yesterday afternoon with a chief complaint of increasing lethargy and hypersomnia. Workup in the emergency department including a brain CT which did not show any acute intracranial hemorrhage or midline shift. Diffuse age- related cerebral atrophy and chronic small vessel ischemic changes noted. Chest x-ray did not show any acute cardiopulmonary process. Labs from yesterday including a CBC with a WBC count 4.8, hemoglobin 13, platelets 170. CMP: Sodium 140, potassium 4.9, chloride 104, serum bicarb 32, BUN 36, creatinine 1.13, glucose 140. VBG with a PCO2 of 53 and pH of 7.38. Troponin 0.014. EKG: V paced at 52 bpm. Urinalysis not concerning for UTI. normal saline infusing at 50 mL/h. Urine toxicology screen unremarkable. Patient currently being evaluated on the 6th floor. Initially, sleeping when I entered the room, awakens and responds appropriately to questioning. Currently on 2 L/min nasal cannula. He has his oral appliance in. His primary complaint is increasing lethargy and hypersomnia at home. He has been using his oral appliance every night. Sleeping more than 12 hours per night with naps throughout the day. Despite this, awakes exhausted. He is falling asleep at inappropriate times, such as at the dinner table. Denies use of caffeine, alcohol, nicotine prior to bedtime. States he wakes up every 2 hours throughout the night to urinate. Does take Flomax and Proscar on an outpatient basis. Denies shortness of breath, chest pain, heart palpitations, syncopal events, PND, lower extremity edema. His last appointment with his Services Program Manager was last week. He sleeps in a reclining chair at home. Denies any recent weight gain. This is a relatively new complaint since returning home from [place] approximately 1 month ago. States that his thought he might have "long-haul COVID". Reportedly, did have COVID infection June 27 prior to going to [place], did initially recover without any complication. Current vital signs: Temperature 97.5 F, heart rate 72 bpm, blood pressure 137/66 mmHg, nontachypneic, SpO2 recorded at 97% on 2 L/min nasal cannula. The patient is seen today November 03, 2024 in follow-up on the regular medical floor. He is currently awake and alert in no acute distress. Sitting up in bed. His only complaint is that of extreme fatigue and weakness. He has been having issues with daytime sleepiness stating he could sleep 22 hours a day. He does have obstructive sleep apnea but has been intolerant to any type of mask for his CPAP machine. He does have a 50-year smoking history however quit 3 years ago. White count 6.1. Hemoglobin 12.0. Platelets 155. Sodium 144. Potassium 4.6. Bicarb 26. BUN 29. Creatinine 1.2. Glucose 148. He has been seen and evaluated by neurology who is planning an EEG and blood work for possible myasthenia gravis. Objective - Vital Signs Vital signs: Vital Signs Temp 98.1 F 11/03/24 07:00 Pulse 62 11/03/24 07:00 Resp 17 11/03/24 07:00 BP 125/65 11/03/24 07:00 Pulse Ox 97 11/03/24 07:00 FiO2 Intake & Output 11/02/24 11/03/24 11/03/24 18:59 06:59 18:59 Intake Total 118 540 Output Total 200 400 Balance -82 140 Intake: Oral 118 540 Output: Urine 200 400 Other: Voiding Method Urinal # Voids 2 1 # Bowel Movements 1 - Exam GENERAL EXAM: Alert, extremely fatigued 79-year-old male, on 2 L nasal cannula, comfortable in no apparent distress. HEAD: Normocephalic. EYES: Normal reaction of pupils, equal size. NOSE: Clear with pink turbinates. THROAT: No erythema or exudates. NECK: No masses, no JVD. CHEST: No chest wall deformity. LUNGS: Equal air entry with no crackles, wheeze, rhonchi or dullness. CVS: S1 and S2 normal with no audible murmur, regular rhythm. ABDOMEN: No hepatosplenomegaly, normal bowel sounds, no guarding or rigidity. SPINE: No scoliosis or deformity SKIN: No rashes CENTRAL NERVOUS SYSTEM: No focal deficits, tone is normal in all 4 extremities. EXTREMITIES: There is no peripheral edema. No clubbing, no cyanosis. Peripheral pulses are intact. - Labs CBC & Chem 7: 11/03/24 04:11 11/03/24 04:11 Labs: Abnormal Lab Results - Last 24 Hours (Table) 11/02/24 11/02/24 11/03/24 Range/Units 17:48 20:08 04:11 RBC (4.40-5.60) X 10*6/uL Hgb (13.0-17.0) g/dL Hct (39.6-50.0) % MCHC (32.0-37.0) g/dL MPV (9.5-12.2) FL BUN (9.0-27.0) mg/dL BUN/Creatinine Ratio (12.00-20.00) Ratio Glucose (70-110) mg/dL POC Glucose (mg/dL) 261 H 227 H (70-110) mg/dL Hemoglobin A1c 7.4 H (<=6.0) % Calcium (8.7-10.3) mg/dL 11/03/24 11/03/24 11/03/24 Range/Units 04:11 04:11 05:43 RBC 4.07 L (4.40-5.60) X 10*6/uL Hgb 12.0 L (13.0-17.0) g/dL Hct 39.0 L (39.6-50.0) % MCHC 30.8 L (32.0-37.0) g/dL MPV 9.2 L (9.5-12.2) FL BUN 29.4 H (9.0-27.0) mg/dL BUN/Creatinine Ratio 24.50 H (12.00-20.00) Ratio Glucose 148 H (70-110) mg/dL POC Glucose (mg/dL) 150 H (70-110) mg/dL Hemoglobin A1c (<=6.0) % Calcium 8.4 L (8.7-10.3) mg/dL Assessment and Plan Assessment: Hypersomnia Moderate obstructive sleep apnea, with an AHI 18.5, fitted with oral appliance BPH and nocturia, maintained on Flomax and Proscar Hypertension History of hyperlipidemia Diabetes mellitus History of permanent pacemaker History of transcatheter aortic valve replacement Plan: The patient was seen and evaluated Stable and on 2 L nasal cannula Titrate down/off the FiO2 No pulmonary complaints EEG pending Blood work for myasthenia gravis pending Keep his appointment with the sleep specialist, Dr. Mejía Cleared for discharge from the pulmonary standpoint I have personally seen and examined the patient, performed the documentation and the assessment and plan as written. Number of minutes spent on the visit: 10 Dictation was produced using Pantech dictation software. Please excuse any grammatical, word or spelling errors.
[2024-11-03 12:57] VITALS: PULSE 86
[2024-11-03 13:06] LABS: Glucose,Whole Blood 226 mg/dL (70-110)
--- NOTE | 2024-11-03 15:48 | P.PN ---
Subjective Progress Note Date: 11/03/24 I am following up with the patient and the patient is accompanied with his and daughter. It seems that family feels today he is doing much better compared to initial presentation. Family members his excessive sleep generalized weakness lethargy began 3 weeks ago but was consistent at this time. They stated he had this in the past over the last 6 years and had a total of 6 episodes lasting for about a day and he was told by his floral department specialist that it could be due to the diabetes. Objective - Vital Signs Vital signs: Vital Signs Temp 98.1 F 11/03/24 07:00 Pulse 86 11/03/24 12:57 Resp 17 11/03/24 07:00 BP 125/65 11/03/24 07:00 Pulse Ox 92 L 11/03/24 12:57 FiO2 Intake & Output 11/02/24 11/03/24 11/03/24 18:59 06:59 18:59 Intake Total 118 540 236 Output Total 200 400 Balance -82 140 236 Intake: Oral 118 540 236 Output: Urine 200 400 Other: Voiding Method Urinal # Voids 2 1 2 # Bowel Movements 1 - Exam General: Patient is lying in bed and is not in acute distress Neuro: The patient is awake alert oriented to self place and time. Is following simple commands. No aphasia. Patient has chronic ptosis of both eyes and according to the that is baseline and it is not worse more than baseline. Strength is left in all extremities above gravity. Some of the workup during this hospital visit consisted of: Patient is afebrile and the white blood cell is within normal limits. Ammonia level is 16 Red blood cell folate is 619 Vitamin B12 is 660 Hemoglobin A1c is 7.4. TSH is 1.880. CT of the head is reported as no acute intracranial hemorrhage or midline shift. There is diffuse age-related cerebral atrophy and chronic small vessel ischemic change noted. Personally reviewed the CT of the head and I agree with report. - Labs CBC & Chem 7: 11/03/24 04:11 11/03/24 04:11 Labs: Abnormal Lab Results - Last 24 Hours (Table) 11/02/24 11/02/24 11/03/24 Range/Units 17:48 20:08 04:11 RBC (4.40-5.60) X 10*6/uL Hgb (13.0-17.0) g/dL Hct (39.6-50.0) % MCHC (32.0-37.0) g/dL MPV (9.5-12.2) FL BUN (9.0-27.0) mg/dL BUN/Creatinine Ratio (12.00-20.00) Ratio Glucose (70-110) mg/dL POC Glucose (mg/dL) 261 H 227 H (70-110) mg/dL Hemoglobin A1c 7.4 H (<=6.0) % Calcium (8.7-10.3) mg/dL 11/03/24 11/03/24 11/03/24 Range/Units 04:11 04:11 05:43 RBC 4.07 L (4.40-5.60) X 10*6/uL Hgb 12.0 L (13.0-17.0) g/dL Hct 39.0 L (39.6-50.0) % MCHC 30.8 L (32.0-37.0) g/dL MPV 9.2 L (9.5-12.2) FL BUN 29.4 H (9.0-27.0) mg/dL BUN/Creatinine Ratio 24.50 H (12.00-20.00) Ratio Glucose 148 H (70-110) mg/dL POC Glucose (mg/dL) 150 H (70-110) mg/dL Hemoglobin A1c (<=6.0) % Calcium 8.4 L (8.7-10.3) mg/dL 11/03/24 Range/Units 13:04 RBC (4.40-5.60) X 10*6/uL Hgb (13.0-17.0) g/dL Hct (39.6-50.0) % MCHC (32.0-37.0) g/dL MPV (9.5-12.2) FL BUN (9.0-27.0) mg/dL BUN/Creatinine Ratio (12.00-20.00) Ratio Glucose (70-110) mg/dL POC Glucose (mg/dL) 226 H (70-110) mg/dL Hemoglobin A1c (<=6.0) % Calcium (8.7-10.3) mg/dL Assessment and Plan Assessment: This is an 79-year-old gentleman who presents emergency department because of lethargy, and was he just sleeping and cannot stay awake over the last 3 weeks. Lethargy and lack of staying awake with generalized weakness: Unsure exact etiology. There is no focal deficit on examination. CT of the head is unremarkable for any acute or subacute stroke. Today he is doing much better compared to initial presentation. According to family members he had similar episodes over the last 6 years but would last 1 day and had a total of 6 episodes in 6 years Diabetes mellitus and patient is on insulin Hypertension History of TAVR Pacemaker History of kidney cancer status post ablation Plan: Pending acetylcholine receptor antibody and musk antibody takes about a week and a half for the result to come back and recommend his outpatient primary care to follow-up with the result. Preliminary EEG is negative for seizure or discharges. Agree with Pulmonary team of obtaining sleep study Cannot Obtain MRI since the patient has a pacemaker but patient had a CT of the head and there is no focal deficit and the CT of the head was negative for any acute or subacute stroke. Will defer the rest of the medical management to primary other specialist Recommend the patient to follow-up with neurologist as outpatient within 2 weeks. Per family members, they will attempt for patient to follow-up with Dr. Phan. There is no further neurological work-up. Will sign off. Please reconsult if needed. Time with Patient: Less than 30
--- NOTE | 2024-11-04 16:37 | EEG ---
ELECTROENCEPHALOGRAM REPORT CLINICAL HISTORY: This is an 79-year-old gentleman with altered mental status. The video EEG is obtained to evaluate for seizure epileptiform activity. RELEVANT MEDICATION: Lexapro. EEG TYPE: Routine 21 channel EEG with video using the 10/20 electrode placement system. DESCRIPTION: Wakefulness is only obtained. During awake state, the posterior-dominant rhythm consists of [id number] voltage of 8.5 to 9 hertz activity that is well modulated and well sustained. There is no physiological stage 2 sleep architecture. There is no focal slowing. Interictal and ictal are none. ACTIVATION PROCEDURE: Photic stimulation did not evoke a posterior driving response. There is no abnormality during the photic stimulation. Hyperventilation is not performed. CLINICAL INTERPRETATION: This is a normal routine EEG during awake state. There is no focal slowing, epileptiform discharge, or seizure on the EEG. A normal routine EEG does not rule out underlying epilepsy. Clinical correlation is recommended. MMNENOL / IJN: [id number] /
== END 2024-11-03 15:50 | disposition home or self-care (01) ==
LOC: EC 16:13 → 6NMEDSUR 19:53
PROVIDERS: ADMIT Hospitalist; ATTEND Hospitalist
DX: G47.10 Hypersomnia, unspecified (principal); R53.1 Weakness; R53.83 Other fatigue; E11.9 Type 2 diabetes mellitus without complications; I10 Essential (primary) hypertension; E78.5 Hyperlipidemia, unspecified; G47.33 Obstructive sleep apnea (adult) (pediatric); N40.1 Benign prostatic hyperplasia with lower urinary tract symptoms; R35.0 Frequency of micturition; R35.1 Nocturia; H91.90 Unspecified hearing loss, unspecified ear; Z85.528 Personal history of other malignant neoplasm of kidney; Z86.16 Personal history of COVID-19; Z87.891 Personal history of nicotine dependence; Z95.0 Presence of cardiac pacemaker; Z95.2 Presence of prosthetic heart valve; Z79.82 Long term (current) use of aspirin; Z79.84 Long term (current) use of oral hypoglycemic drugs; Z79.899 Other long term (current) drug therapy; Z79.4 Long term (current) use of insulin; Z96.41 Presence of insulin pump (external) (internal); Z88.1 Allergy status to other antibiotic agents; Z88.5 Allergy status to narcotic agent
CPT/HCPCS: 96372 ×2; 99285; 36415; 95816; 93005; 86041; 82747; 80053; 80048; 84443; 82607; 82140; 82803; 84484; 85025 ×2; 85610; 85730; 81003; 80306; 83036; 71046; 70450; G0378 ×3; S0138; J1644 ×2

== ENCOUNTER → 2024-11-18 | Outpatient (CLI) | payer MEDICARE, OTHER ==
--- NOTE | 2024-11-18 16:39 | CT ---
EXAMINATION TYPE: CT chest wo con DATE OF EXAM: 11/18/2024 COMPARISON: CTA chest dated 12/22/2014 CLINICAL INDICATION: Male, 79 years old with history of J96.11 CHRONIC RESPIRATORY FAILURE WITH HYPOX IA; PHH, Chronic respiratory failure with hypoxia TECHNIQUE: CT scan of the thorax is performed without IV contrast. CT DLP: [address] CTDI: mGy Automated exposure control for dose reduction was used. FINDINGS: There are moderate emphysematous changes. There is no suspicious lung mass or nodule. There is no airspace consolidation. There is no pleural effusion or pneumothorax. There is a prosthetic aortic valve. There is no cardiomegaly. There is no mediastinal, hilar or axillary adenopathy. Limited scanning through the upper abdomen reveals no gross abnormality. There are no focal osseous lesions. IMPRESSION: 1. Moderate emphysematous changes. 2. No acute cardiopulmonary disease. [facility], Workstation: [facility], 11/18/2024 4:37 PM
== END | disposition home or self-care (01) ==
LOC: RADCTMAIN 12:06
PROVIDERS: ATTEND Internal Medicine Geriatric Medicine
DX: J96.11 Chronic respiratory failure with hypoxia (principal); J43.9 Emphysema, unspecified
CPT/HCPCS: 71250

== ENCOUNTER → 2025-01-26 | Outpatient (CLI) | payer OTHER ==
--- NOTE | 2025-01-26 14:34 | CT ---
EXAMINATION TYPE: CT abdomen pelvis wo con DATE OF EXAM: 01/26/2025 COMPARISON: 03/08/2020 CLINICAL INDICATION: Male, 79 years old with history of C64.1 MALIGNANT NEOPLASM OF RIGHT KIDNEY,; PH H, RIGHT KIDNEY CANCER TECHNIQUE: CT scan of the abdomen and pelvis is performed without oral or IV contrast. CT DLP: 1085.[address] CTDI: mGy Automated exposure control for dose reduction was used. FINDINGS: Within the limitations of a non-contrast study, the following observations are made. The lungs are clear. Gallbladder is normal and there is no gallstone, wall thickening, pericholecystic fluid or distention . There is no biliary ductal dilatation. There is no organomegaly of the liver, pancreas, spleen or adrenal glands. There is a 3.5 x 4.5 cm exophytic mixed density mass of the lateral right kidney. It is a combination of fat density peripherally and soft tissue density centrally. It is the known prior cryoablation si te but the possibility of recurrent neoplasm cannot be excluded with this technique. Postcontrast CT abdomen and pelvis attention kidneys versus MRI of the kidneys is recommended for further evaluation. There are no renal calcifications or hydronephrosis. The caliber of the abdominal aorta is normal and there is no retroperitoneal adenopathy or hemorrhage . The bowel loops are normal in caliber is no evidence of obstruction. No inflammatory changes are iden tified in the mesentery and there is no free intraperitoneal air or fluid. There is no pelvic mass, free fluid, abscess or adenopathy. There are no destructive osseous lesions. Patient is status post L4 and L5 fusion. IMPRESSION: Prior ablation site in the lateral right kidney as described above. Neoplasm cannot be excluded with this technique. CT abdomen and pelvis with contrast attention kidneys or MRI of the kidneys is recomm ended for further evaluation.. [facility], , 01/26/2025 2:32 PM
== END | disposition home or self-care (01) ==
LOC: RADCTMAIN 12:22
PROVIDERS: ATTEND Internal Medicine Critical Care Medicine
DX: C64.1 Malignant neoplasm of right kidney, except renal pelvis (principal)
CPT/HCPCS: 74176